=== PATIENT | female | born 1960 | race Caucasian/White ===

== ENCOUNTER 2020-06-04 13:30 | Outpatient (CLI) | payer MEDICARE, SELFPAY | END 2020-06-04 13:31 | disposition home or self-care (01) | LOC: ANHCOVIDVC 13:30 | PROVIDERS: PCP Family Medicine | DX: Z23 Encounter for immunization (principal) | CPT/HCPCS: 0001A; 91300 ==

== ENCOUNTER 2020-06-25 13:31 | Outpatient (CLI) | payer MEDICARE, SELFPAY | END 2020-06-25 13:32 | disposition home or self-care (01) | LOC: ANHCOVIDVC 13:31 | PROVIDERS: PCP Family Medicine | DX: Z23 Encounter for immunization (principal) | CPT/HCPCS: 0002A; 91300 ==

== ENCOUNTER 2021-06-30 08:28 | Outpatient (CLI) | payer MEDICARE, SELFPAY ==
--- NOTE | ~2021-06-30 | CT_ITS ---
EXAMINATION: CT diagnostic chest w con EXAM DATE: 06/30/2021 09:03 INDICATION: fu abnormal CT chest TECHNIQUE: Spiral CT of the chest following intravenous injection of 75 mL Omnipaque 350. Axial, cor onal and sagittal images of the chest were reviewed. Coronal maximum intensity pixel images of chest reviewed. The dose-length product (DLP) for this examination was 123.32 mGy-cm. The exposure was t ailored according to patient size (auto mA exposure control), and iterative reconstruction (ASIR) was used as additional dose reduction technique. Comparison is made to prior examination from 06/19/2016. FINDINGS: Some scattered small right upper lobe nodules are stable, postinfectious. No new or suspic ious pulmonary nodules. There is mild to moderate emphysema. There are no pleural or pericardial eff usions. Tracheobronchial tree is patent. There is no mediastinal, hilar or axillary lymphadenopat hy. There is no pneumothorax. Heart normal in size. No evidence of coronary arterial calcificat ion. Right adrenal low-density lesion consistent with adenoma measuring 1.3 cm. Small calcified sple en. There is mild thoracic spondylosis without osteoblastic or osteolytic lesions identified. IMPRESSION: 1. Small post infectious residua unchanged. 2. Mild to moderate emphysema. Reviewed, dictated and finalized at location A.
[2021-06-30 08:59] LABS: Estimated Glomerular Filt Rate > 60
== END 2021-06-30 08:29 | disposition home or self-care (01) ==
PROVIDERS: PCP Family Medicine; Visit Provider Family Medicine
DX: R59.0 Localized enlarged lymph nodes (principal); J43.9 Emphysema, unspecified; R91.8 Other nonspecific abnormal finding of lung field
CPT/HCPCS: 71260; Q9967

== ENCOUNTER 2021-12-07 00:41 | Inpatient (IN) | payer MEDICARE, SELFPAY ==
[2021-12-07] VITALS (28 sets, daily range): BP systolic 94–180; BP diastolic 50–108; PULSE 80–106; RESP 12–22; TEMP 36.3–37.3; O2SAT 86–96; BMI 19.3
--- NOTE | 2021-12-07 | ECHO_ITS ---
Patient Info Name: Divya Torres Age: 61 years : 1960 Gender: Female Ht: 62 in Wt: 94 lbs BSA: 1.36 m2 HR: 91 bpm BP: 156 / 85 mmHg Heart Rhythm: Sinus Rhythm Technical Quality: Fair Exam Date: 12/07/2021 10:20 AM Exam Location: [facility] Patient Status: Outpatient Admit Date: 12/07/2021 Staff Ordering Physician: Perry Johnson M.A., MD Entrance Guard: Simran Mann RDCS Attending Provider: Shilpa Melgar DO Referring Physician: Da CHRISTIANSEN; Exam Type: CA echo dop color flow w con Study Info Indications - sob Complete two-dimensional, color flow and Doppler transthoracic echocardiogram is performed with contrast to opacify the left ventricle and to improve the deliniation of the left ventricle endocardial borders. Contrast/Agitated Saline Contrast/Ag. Saline: Definity Amount: 2.00 ml Administered By: Simran Mann RDCS Existing IV Access: Yes IV Access Condition: patent with no signs of infiltration Summary 1. Left ventricular chamber dimension is normal. 2. Left ventricular systolic function is normal, estimated at 60-65%. 3. There is no increased left ventricular wall thickness. 4. The left ventricular diastolic function is grade I diastolic dysfunction. 5. Right ventricular chamber dimension is moderately enlarged. 6. Right ventricular systolic function is moderately reduced with relative sparing of the apex consistent with Melchor's sign which can be seen pulmonary embolism and/or right ventricular infarction. TAPSE 1.3. 7. Flattening of the septum in systole consistent with right ventricular pressure overload. 8. Right atrial chamber dimension is mildly enlarged. 9. There is mild tricuspid valve regurgitation. 10. Moderate pulmonary hypertension, estimated pulmonary arterial systolic pressure is 52 mmHg. Left Ventricle Left ventricular chamber dimension is normal. Left ventricular systolic function is normal, estimated at 60-65%. There is no increased left ventricular wall thickness. The left ventricular diastolic function is grade I diastolic dysfunction. Right Ventricle Right ventricular chamber dimension is moderately enlarged. Right ventricular systolic function is moderately reduced with relative sparing of the apex consistent with Melchor's sign which can be seen pulmonary embolism and/or right ventricular infarction. TAPSE 1.3. Flattening of the septum in systole consistent with right ventricular pressure overload. Left Atria Left atrial chamber dimension is normal. Right Atria Right atrial chamber dimension is mildly enlarged. Aortic Valve The aortic valve is trileaflet. There is mild aortic valve sclerosis. There is no aortic valve stenosis. There is no aortic valve regurgitation. Pulmonic Valve The pulmonic valve is not well visualized. Mitral Valve The mitral valve has thickened leaflets. There is no mitral valve regurgitation. The mitral valve annulus is mildly calcified. Tricuspid Valve The tricuspid valve leaflets are thickened. There is mild tricuspid valve regurgitation. Moderate pulmonary hypertension, estimated pulmonary arterial systolic pressure is 52 mmHg. Pericardium/Pleural The pericardium appears normal. There is small pericardial effusion. Inferior Vena Cava Normal inferior vena cava with >50% collapse upon inspiration consistent with elevated right atrial pressure, 10 mmHg. Aorta The aortic root
--- NOTE | ~2021-12-07 | CT_ITS ---
EXAMINATION: CT brain wo con DATE: 12/07/2021 09:29 INDICATION: Headache TECHNIQUE: Computed tomography (CT) of the head was performed without intravenous contrast. Sagittal and coronal reconstructions were performed. The mA was adjusted according to patient size. Iterative reconstruction technique was employed. The dose-length product was 605.33 mGy-cm. COMPARISON: None FINDINGS: There is small amount of intravascular contrast which may be related to earlier outside imaging. Ther e is minimal scattered white matter hypoattenuation consistent with chronic small vessel ischemic dis ease. No acute intracranial hemorrhage, acute infarction or abnormal extra axial fluid collection. Ve ntricles are normal and symmetric. No mass/mass effect. Small amount of fluid layering dependently in the right sphenoid sinus. The orbits and mastoid air cells are normal. IMPRESSION: 1. Minimal scattered white matter hypoattenuation consistent with chronic small vessel ischemic disea se. No acute intracranial process. Reviewed, dictated and finalized at location A. IMPRESSION: 1. Minimal scattered white matter hypoattenuation consistent with chronic small vessel ischemic disease. No acute intracranial process.
--- NOTE | ~2021-12-07 | US_ITS ---
EXAMINATION: US venous doppler [facility] DATE: 12/08/2021 09:36 INDICATION: Chest pain, bilateral below-knee amputation TECHNIQUE: Howe scale images without and with compression and Doppler images of the bilateral lower e xtremity veins were obtained. COMPARISON: None FINDINGS: The right common femoral vein, profunda femoral vein, femoral vein, popliteal vein are patent. The left common femoral vein, profunda femoral vein, femoral vein, popliteal vein are patent. IMPRESSION: 1. Patent bilateral lower extremity veins. No evidence of deep venous thrombosis. Reviewed, dictated and finalized at location B. IMPRESSION: 1. Patent bilateral lower extremity veins. No evidence of deep venous thrombosi s.
--- NOTE | ~2021-12-07 | CT_ITS ---
EXAMINATION: CTA chest PE protocol DATE: 12/07/2021 09:28 INDICATION: Chest pain. TECHNIQUE: Computed tomography angiography (CTA) of the chest was performed with 100 mL Omnipaque-350 intravenous contrast timed to evaluate the pulmonary arteries. Coronal maximum intensity projection 3D-reconstructions were created by the technologist. Automated exposure control and iterative reconst ruction technique were employed. The dose-length product was 200.43 mGy-cm. COMPARISON: Chest CT 06/30/2021 FINDINGS: There is moderate emphysema. There is mild atelectasis bilaterally. There is mucous pluggin g in the lower lobes. There are a few scattered nodules in the lungs measuring up to 4 mm, some of wh ich are new. No pleural effusion. There is right atrial and right ventricular enlargement of the hear t. There is a small pericardial effusion. The central pulmonary arteries are enlarged, consistent wit h pulmonary arterial hypertension. There is a thin strand-like filling defect in a pulmonary artery i n right lower lobe, consistent with a chronic embolus. There is a 1.6 cm mass in right adrenal gland measuring low-attenuation, consistent with an adenoma. The spleen is small and calcified, consistent with chronic infarct. There is kyphosis and mild spondylosis of thoracic spine. IMPRESSION: 1. Small chronic pulmonary embolus in right lower lobe. 2. Mucous plugging in the lower lobes. 3. Pulmonary nodules measuring up to 4 mm, some of which are new, probably benign. Noncontrast low-do se chest CT is recommended in 6 months. 4. Moderate emphysema. 5. Cardiomegaly. 6. Small pericardial effusion, new from 06/30/2021. Reviewed, dictated and finalized at location A. IMPRESSION: 1. Small chronic pulmonary embolus in right lower lobe. 2. Mucous plugging in the lower lobes. 3. Pulmonary nodules measuring up to 4 mm, some of which are new, probably shaji gn. Noncontrast low-dose chest CT is recommended in 6 months. 4. Moderate emphysema. 5. Cardiomegaly. 6. Small pericardial effusion, new from 06/30/2021.
--- NOTE | ~2021-12-07 | XR_ITS ---
EXAMINATION: XR chest 2V DATE: 12/07/2021 01:31 INDICATION: Shortness of breath TECHNIQUE: AP and lateral views of the chest are obtained. COMPARISON: 06/30/2021 FINDINGS: The lungs are free of acute opacities. No pleural effusion or pneumothorax. The cardiomedia stinal silhouette is normal. There is mild thoracic spondylosis. IMPRESSION: 1. No acute cardiopulmonary abnormality. Reviewed, dictated and finalized at location B.
--- NOTE | 2021-12-07 00:57 | ECG_ITS ---
Measurements Intervals [place] Rate: 98 P: 51 NE: 136 QRS: 127 QRSD: 90 T: 17 QT: 330 QTc: 423 Interpretive Statements SINUS RHYTHM VENTRICULAR PREMATURE COMPLEX RIGHT AXIS DEVIATION POSSIBLE LEFT ATRIAL ENLARGEMENT DELAYED PRECORDIAL R/S TRANSITION MINIMAL Q WAVES- INFERIOR LEADS BASELINE ARTIFACT- I, II, AVR BORDERLINE ECG NO PREVIOUS ECG AVAILABLE FOR COMPARISON Electronically Signed On 12-07-2021 8:17:33 CDT by Agapito Middleton D.O.
[2021-12-07 01:20] LABS: Basophils Absolute Auto 0.1 K/mm3 (0.0-0.1); Basophils Percent Auto 0.5 % (0.2-1.2); Eosinophils Absolute Auto 0.3 K/mm3 (0-0.3); Eosinophils Percent Auto 3.3 % (0-4.4); Hematocrit 60.8 % (37.0-47.0); Hemoglobin 20.3 g/dL (12.0-15.0); Immature Granulocyte Absolute 0.03 K/mm3 (0.00-0.031); Immature Granulocyte Percent A 0.3 % (0-0.5); Lymphocytes Absolute Auto 2.09 K/mm3 (0.9-3.2); Lymphocytes Percent Auto 21.1 % (18.3-44.2); Mean Corpuscular HGB Conc 33.4 g/dl (32-36); Mean Corpuscular Hemoglobin 34.9 pg (26-34); Mean Corpuscular Volume 104.6 fl (80-100); Mean Platelet Volume 10.6 fl (7.4-10.4); Monocytes Percent Auto 9.6 % (2.6-8.5); Neutrophils Absolute Auto 6.4 K/mm3 (1.3-6.7); Neutrophils Percent Auto 65.2 % (45.5-73.1); Platelet Count Result 212 k/mm3 (150-375); Red Blood Count 5.81 M/mm3 (4.2-5.4); Red Cell Distribution Width 14.8 % (11.5-14.5); White Blood Count 9.9 K/mm3 (4.5-10.0)
--- NOTE | 2021-12-07 01:24 | PC.NURSE ---
Patient off unit to radiology.
--- NOTE | 2021-12-07 01:26 | ED.NECK ---
HPI - Neck Pain/Injury General Chief Complaint: Shortness of Breath/Dyspnea Stated Complaint: shortness of breath Time Seen by Provider: 12/07/21 00:55 History of Present Illness HPI Narrative: This is a 61-year-old female, recently diagnosed with CHF, resents to the emergency department complaining of pain in the neck and chest, similar to that which he experienced about a week ago. The patient states she was in [place] when she noted difficulty breathing and chest pain. She was evaluated at a hospital there, and diagnosed with coronary artery disease and treated with diuretics. She was discharged and advised to follow-up with cardiology here for catheterization. She states she has had recurrence of the neck pain as well as shortness of breath. Related Data Home Medications Medication Instructions Recorded Confirmed oxycodone myristate 27 mg capsule 27 mg PO Q12H 02/07/21 12/07/21 sprinkle extended release 12hr(DON'T CRUSH) (Xtampza ER) aspirin 81 mg tablet,delayed 81 mg PO DAILY 12/07/21 12/07/21 release furosemide 20 mg tablet 20 mg PO DAILY 12/07/21 12/07/21 gabapentin 800 mg tablet 800 mg PO BID 12/07/21 12/07/21 tramadol 50 mg tablet 50 mg PO DAILY PRN Mild Pain 12/07/21 12/07/21 (Scale Score 1-4) Allergies Allergy/AdvReac Type Severity Reaction Status Date / Time carbamazepine Allergy Unknown Rash Verified 08/04/21 10:07 Review of Systems Review of Systems: CONSTITUTIONAL: Denies fever, chills, or sweats. EYES: Denies visual changes, redness, or discharge. ENT: Denies rhinorrhea, congestion, sore throat, or otalgia. CARDIOVASCULAR: Chest pain denies palpitations, or edema. RESPIRATORY: Dyspnea denies cough. GASTROINTESTINAL: Denies abdominal pain, nausea, vomiting, or diarrhea. GENITOURINARY: Denies dysuria or hematuria. SKIN: Denies rash or itching. MUSCULOSKELETAL: Denies back pain, joint pain, or myalgia. NEUROLOGIC: Denies headache, numbness, dizziness, or weakness. PSYCHIATRIC: Denies anxiety or depression. [facility] Past Medical History Medical History Emphysema of lung Family History Family History Grandparent Diabetes mellitus Father Hypertension Social History Social History Smoking status: Current every day smoker Alcohol intake: current Drinks per week: 15 Substance use: never Substance use type: does not use Spiritual care concerns: No Exam Narrative: GENERAL: Well-developed, well-nourished, appears uncomfortable HEAD: Normocephalic, atraumatic. EYES: PERRLA and EOMI. ENT: Nares clear, no rhinorrhea or epistaxis. Mucous membranes moist. Oropharynx without tonsillar hypertrophy exudate or other lesions. NECK: JVD noted supple. No adenopathy or masses. CHEST: Clear to auscultation. No respiratory distress. No wheezes rales or rhonchi HEART: Regular rate and rhythm. No murmur heard. Normal peripheral pulses. ABDOMEN: Soft, nontender, nondistended, normal active bowel sounds. EXTREMITIES: Bilateral BKA's noted with well-healed surgical scars, normal range of motion. No edema. SKIN: Warm, dry, no rash. NEURO: No focal deficits. Alert and oriented x3. PSYCH: Normal mood and affect. Course Course Emergency Course: 05:46 - BNP 7720. Troponin elevated to 0.09 with repeat 0.088. The patient continues to have chest pain. Discussed patient with hospitalist, Dr. Stephens who accepts admission. 06:00 - Discussed patient with maintenance of way supervisor, Dr. Estevez who recommends holding anticoagulants until the day cardiology team evaluates the patient (in approximately 1.5 hours). This recommendation was relayed to Dr. Stephens. Vital Signs Vital signs: Vital Signs Temperature 97.5 F L 12/07/21 00:43 Pulse Rate 106 H 12/07/21 00:43 Respiratory Rate 22 H 12/07/21 00:43 Blood Pressure 180/108 H 12/07/21 00:43 Puls
[2021-12-07 01:48] LABS: Alanine Aminotransferase 34 U/L (6-35); Albumin Level 4.4 g/dL (3.5-5.1); Alkaline Phosphatase 74 U/L (38-126); Anion Gap 11 mmol/L (8-16); Aspartate Amino Transferase 32 U/L (14-36); Bilirubin,Total 1.2 mg/dL (0.2-1.3); Blood Urea Nitrogen 17 mg/dL (7-17); Calcium 9.1 mg/dL (8.4-10.2); Carbon Dioxide 37 mmol/L (22-30); Chloride 95 mmol/L (98-107); Estimated Glomerular Filt Rate > 60; Glucose 89 mg/dL (65-110); Potassium 3.9 mmol/L (3.4-5.0); Sodium 143 mmol/L (137-145)
[2021-12-07] MEDS: ACETAMINOPHEN 500 MG TABLET 1000 MG PO (01:51)
[2021-12-07 02:20] LABS: NT Pro B Type Natriuretic Pept 7720 pg/mL (5-100)
--- NOTE | 2021-12-07 03:18 | PC.NURSE ---
Patient report given to NATALIA Mosley. All questions answered and care of patient transferred.
[2021-12-07 05:35] LABS: Troponin I 0.088 ng/mL (0.000-0.034)
[2021-12-07] MEDS: FUROSEMIDE INJ 40 MG/4 ML VIAL IV PUSH ×3 (05:50→18:37)
--- NOTE | 2021-12-07 05:50 | PM.IMHP ---
H&P: HPI History of Present Illness Date/Time: 12/07/21 05:50 Chief Complaint: 61 years old female with past medical history of COPD lung nodule BKA presented to the hospital with chest pain dull in nature no aggravating or relieving factors associated with shortness of breath worsening with activities patient had recent history of chest pain she was requested to follow-up with with Cardiology but patient did not follow-up with cardiology today patient came back to the ER with complaint of chest pain and shortness of breath BNP was above 7000 troponin was elevated cardiology was consulted patient will be admitted to the hospital for further evaluation and treatment of CHF exacerbation and chest pain Review of Systems Review of Systems: Twelve system review was done negative except above [facility] Past Medical History Medical History Emphysema of lung Family History Family History Grandparent Diabetes mellitus Father Hypertension Social History Social History Alcohol intake: current Meds Home Medications and Allergies Home Medications Medication Instructions Recorded Confirmed Type nortriptyline 25 mg capsule 25 mg PO DAILY 10/17/19 02/07/21 History gabapentin 800 mg tablet See Rx Instructions .Route .COMPLEX 02/07/21 02/07/21 History oxycodone myristate 27 mg capsule 27 mg PO Q12H 02/07/21 02/07/21 History sprinkle extended release 12hr(DON'T CRUSH) (Xtampza ER) trazodone 50 mg tablet 50 mg PO QHS #90 tabs 02/07/21 02/07/21 Rx glycopyrrolate 9 mcg-formoterol See Rx Instructions .Route 08/29/21 Rx 4.8 mcg HFA aerosol inhaler .COMPLEX #10.7 grams (Bevespi Aerosphere) Allergies Allergy/AdvReac Type Severity Reaction Status Date / Time carbamazepine Allergy Unknown Rash Verified 08/04/21 10:07 Vital Signs Vital Signs - 24 hr 12/07/21 00:43 12/07/21 02:52 12/07/21 03:26 Temperature 97.5 F L Pulse Rate 106 H 103 H 93 Respiratory Rate 22 H 20 Blood Pressure 180/108 H 145/90 H Pulse Oximetry 86 L 93 Oxygen Delivery Nasal Cannula Oxygen Flow Rate 3 12/07/21 03:16 12/07/21 03:31 12/07/21 02:55 Temperature Pulse Rate 94 91 Respiratory Rate 18 17 Blood Pressure 153/85 H 153/86 H Pulse Oximetry 94 92 95 Oxygen Delivery Nasal Cannula Oxygen Flow Rate 3 12/07/21 03:32 12/07/21 05:00 12/07/21 05:16 Temperature Pulse Rate 91 89 89 Respiratory Rate 16 16 17 Blood Pressure 153/87 H 156/89 H Pulse Oximetry 94 92 93 Oxygen Delivery Oxygen Flow Rate Exam Narrative: GENERAL: Looks ill HEAD: Normocephalic, atraumatic. NECK: Supple. No adenopathy, no masses. RESPIRATORY: Positive bilateral crackle. CARDIOVASCULAR: Regular rate and rhythm without murmurs, rubs, or gallops. Peripheral pulses 2+ and equal bilaterally. ABDOMINAL: Soft, nontender, nondistended, no hepatosplenomegaly. Normoactive BS. MUSCULOSKELETAL: Moves all extremities. Strength/ROM intact without gross deformities or TTP. No edema. No calf tenderness. No chest wall tenderness palpation. SKIN: Warm, dry, normal color. No rashes. NEURO: A&O X3. PSYCHIATRIC: Appropriate mood and affect. Normal interaction. H&P: Results Labs Labs: Short CBC 12/07/21 Range/Units 01:06 WBC 9.9 (4.5-10.0) K/mm3 Hgb 20.3 H (12.0-15.0) g/dL Hct 60.8 H (37.0-47.0) % Plt Count 212 (150-375) k/mm3 [facility] 12/07/21 01:06 Sodium 143 Potassium 3.9 Chloride 95 L Carbon Dioxide 37 H BUN 17 Creatinine 0.60 L Glucose 89 Calcium 9.1 Cardiac Enzymes 12/07/21 12/07/21 Range/Units 01:06 05:04 Troponin I 0.090 H* 0.088 H* (0.000-0.034) ng/mL Liver Function 12/07/21 Range/Units 01:06 Total Bilirubin 1.2 (0.2-1.3) mg/dL AST 32 (14-36) U/L ALT 34 (6-35) U/L Alkaline Susana
[2021-12-07] MEDS: MORPHINE SULFATE (*CRX) 4 MG/ML INJ IV PUSH ×2 (05:51→09:04)
[2021-12-07 06:05] LABS: Cholesterol 172 mg/dL (0-200); HDL Direct 61 mg/dL; Triglycerides 86 mg/dL (<150)
[2021-12-07 06:15] LABS: LDL Cholesterol Direct 87 mg/dL
--- NOTE | 2021-12-07 06:20 | ADMGEN ---
This patient, Divya Torres, was admitted to IMU Room 232-01 at 0620. Patient/family oriented to hospital policies and general routines including ID bracelet, bed and alarms, visiting hours, pain management, procedures, bathroom and other care routines, personal items, smoking policy, room service/diet, and visiting hours. Information on how to activate the Rapid Response Team has been discussed. Patient/Family are encouraged to report perceived risks to care and to ask questions if they do not understand what they are told or what they should do.
[2021-12-07 07:05] LABS: Influenza A QL RT-PCR Negative (Negative); Influenza B QL RT-PCR Negative (Negative); SARS-CoV-2 RNA PCR Negative
[2021-12-07] MEDS: ENOXAPARIN 40 MG/0.4 ML SYRINGE SUB-Q ×2 (08:43→21:05)
[2021-12-07] MEDS: METOPROLOL TARTRATE 12.5 MG TABLET PO ×2 (08:43→21:05)
[2021-12-07] MEDS: ATORVASTATIN 20 MG TABLET PO (08:43)
[2021-12-07] MEDS: ASPIRIN 81 MG CHEWABLE TABLET PO (08:43)
--- NOTE | 2021-12-07 08:47 | ECG_ITS ---
Measurements Intervals [place] Rate: 80 P: 67 IN: 150 QRS: 132 QRSD: 93 T: 58 QT: 370 QTc: 427 Interpretive Statements SINUS RHYTHM RIGHT AXIS DEVIATION POSSIBLE RIGHT ATRIAL ENLARGEMENT LEFT ATRIAL ENLARGEMENT DELAYED PRECORDIAL R/S TRANSITION MINIMAL Q WAVES- INFERIOR LEADS BORDERLINE T WAVE ABNORMALITY- ANT/HIGH LAT LEADS BORDERLINE ECG COMPARED TO ECG 12/07/2021 01:02:18 NO SIGNIFICANT CHANGES Electronically Signed On 12-07-2021 14:30:23 CDT by Agapito Middleton D.O.
[2021-12-07 08:52] LABS: Troponin I 0.069 ng/mL (0.000-0.034)
--- NOTE | 2021-12-07 11:08 | IVDEFINITY ---
Prior to administration of IV Definity the patient was educated on the risks and benefits of the imaging enhancing agent including potential adverse side effects. The patient verbalized understanding. Allergies were verified. No exclusion criteria were identified and at least one of the following inclusion criteria were met: 1) physician request, 2) patient technically difficult to image (per the [place] [employer]ocardi[employer] guidelines of two or more segments not discernable within the apical view), or 3) questionable left ventricular function. ?
[2021-12-07] MEDS: PERFLUTREN LIPID MICROSPHERES 1.5 ML VIAL DILUTED TO 10 ML TOTAL VOLUME IV PUSH (11:09)
[2021-12-07] MEDS: GABAPENTIN 400 MG CAPSULE 800 MG PO ×2 (12:00→18:37)
--- NOTE | 2021-12-07 12:48 | PCDIET ---
Brief Nutrition Note: Screened for BMI 18.5. Patient has existing BKA. Adjusted BMI for amputation (-5.9%) is 19.7, outside of screening criteria. No recent weight loss or reports of poor appetite. Routine monitoring 7 days. Portia Corbin MS RD LDN
--- NOTE | 2021-12-07 15:16 | PM.CNCAR ---
Assessment and Plan Assessment and plan (1) Elevated troponin: Code(s): R77.8 - Other specified abnormalities of plasma proteins Status: Acute (2) Chronic obstructive pulmonary disease, unspecified: Code(s): J44.9 - Chronic obstructive pulmonary disease, unspecified Status: Acute (3) Tobacco use: Code(s): Z72.0 - Tobacco use Status: Acute (4) Congestive heart failure: Code(s): I50.9 - Heart failure, unspecified Status: Acute Plan 1. Patient's chest pain is pleuritic. Elevated troponins likely 2/2 CHF. 2. Patient reports symptomatic improvement with diuresis. Would continue diuresis until euvolemic. 3. Echocardiogram pending, will follow-up on results. 4. Continue ASA, statin, beta-nimo. History of Present Illness History of Present Illness Consult date/time: 12/07/21 15:16 Requesting physician: Milan Heller MD Consult reason: chest pain Reason For Visit: CHEST PAIN Narrative: Patient is a 61-year-old female with a history of COPD, lung nodule, bilateral BKAs, tobacco dependence who presented with shortness of breath and chest tightness. Patient states that she was recently admitted to a hospital in [facility] (12/02 to 12/03) for similar symptoms, and was told that she had congestive heart failure. Had elevated BNP and troponins. Was treated for heart failure and recommended she receive cardiac cath as an outpatient. Patient presented last night with chest tightness that worsens with breath. Received diuretics since admission, and feels some improvement. CTA done showed small chronic right lower lobe pulmonary embolus, mucus plugging in lower lobes, lung nodule, and small pericardial effusion. Troponins mildly elevated. Review of Systems Constitutional: Constitutional: Denies body ache(s), Denies chills, Denies night sweats and Denies weakness Cardiovascular: Cardiovascular: Reports as per HPI Respiratory: Respiratory: Reports as per HPI Gastrointestinal: Gastrointestinal: Denies abdominal pain, Denies nausea and Denies vomiting Neurologic: Reports system reviewed and no additional complaints, except as documented Hematologic/Lymphatic: Hematologic/Lymphatic: Denies easy bleeding and Denies easy bruising PMFSH Past Medical History Medical History Emphysema of lung Family History Family History Grandparent Diabetes mellitus Father Hypertension Social History Social History Smoking status: Current every day smoker Alcohol intake: current Drinks per week: 15 Substance use: never Substance use type: does not use Spiritual care concerns: No Meds Home Medications and Allergies Home Medications Medication Instructions Recorded Confirmed Type oxycodone myristate 27 mg capsule 27 mg PO Q12H 02/07/21 12/07/21 History sprinkle extended release 12hr(DON'T CRUSH) (Xtampza ER) aspirin 81 mg tablet,delayed 81 mg PO DAILY 12/07/21 12/07/21 History release furosemide 20 mg tablet 20 mg PO DAILY 12/07/21 12/07/21 History gabapentin 800 mg tablet 800 mg PO BID 12/07/21 12/07/21 History tramadol 50 mg tablet 50 mg PO DAILY PRN Mild Pain 12/07/21 12/07/21 History (Scale Score 1-4) Allergies Allergy/AdvReac Type Severity Reaction Status Date / Time carbamazepine Allergy Unknown Rash Verified 08/04/21 10:07 Vital Signs Vital Signs - 24 hr 12/07/21 00:43 12/07/21 02:52 12/07/21 03:26 Temperature 36.4 C L Pulse Rate 106 H 103 H 93 Respiratory Rate 22 H 20 Blood Pressure 180/108 H 145/90 H Pulse Oximetry 86 L 93 Oxygen Delivery Nasal Cannula Oxygen Flow Rate 3 12/07/21 03:16 12/07/21 03:31 12/07/21 02:55 Temperature Pulse Rate 94 91 Respiratory Rate 18 17 Blood Pressure 153/85 H 153/86 H Pulse Oximetry 94 92 95 Oxygen Delivery Nasal Cannula
[2021-12-07 15:38] LABS: D Dimer 0.69 ug/mL (<0.48)
--- NOTE | 2021-12-07 17:09 | PM.CNPUL ---
Assessment and Plan Assessment and plan (1) Pulmonary embolism: Code(s): I26.99 - Other pulmonary embolism without acute cor pulmonale Status: Acute Assessment and Plan: Patient presents with a recent airplane trip, hypoxemia, positive D-dimer, echocardiogram with a moderately enlarged right ventricle and moderately reduced right ventricular function with relative sparing of the apex consistent with a Anderson sign, positive troponins, and a CT angiogram of the chest consistent with a right lower lobe segmental filling defect. This has more of an chronic appearance on the CT scan. Lower extremity Dopplers have been ordered. The patient has hypoxia requiring 3 L nasal cannula today. I Believe the patient has a pulmonary embolism and agree with Lovenox 1 milligram/kilos subcu b.i.d.. discussed with Dr. Melgar (2) Chronic obstructive pulmonary disease, unspecified: Code(s): J44.9 - Chronic obstructive pulmonary disease, unspecified Status: Acute Assessment and Plan: The patient has a history of 49 pack year tobacco use, currently smoking, stated that she has PFTs and was told she has COPD, CT of the chest on 06/19/2016 has mild apical predominant centrilobular emphysema and CT scan of the chest on 12/07/2021 demonstrates moderate apical predominant centrilobular emphysema. Patient was previously on no oxygen, had no exacerbations in the last year and was maintained on bevespi. currently the patient denies any wheezing, cough, phlegm production and I do not believe she is having a COPD exacerbation, pneumonia or tracheobronchitis at this time. At this time I will place the patient on albuterol 2.5 mg nebulizers and ipratropium 0.5 mg nebulizers Q.6 hours. If she remains stable will switch her to long-acting beta agonist and long-acting muscarinic antagonist. (3) Congestive heart failure: Code(s): I50.9 - Heart failure, unspecified Status: Acute Assessment and Plan: Patient with a history of congestive heart failure and currently with elevated BNP but does not appear clinically volume overloaded on exam. Patient has improved with Lasix diuresis per Cardiology and hospitalist teams. History of Present Illness History of Present Illness Consult date: 12/07/21 Chief complaint: CHEST PAIN Narrative: 12/07/2021: This is a new pulmonary consult for hypoxemia and PE 61-year-old woman with a history of tobacco use (49 PY, current smoker), history of bacterial blood infection on a ventilator for 2 months in 2010 status post bilateral BKAs, possible endocarditis at that time, polycythemia s/p multiple blood withdrawals (weekly to monthly but quit 2 years ago), congestive heart failure presented to [facility] on 12/07 with shortness of breath and chest pain. At baseline patient is wheelchair-bound she does not have any respiratory limitations but is nonambulatory. She is maintained on the vas Sabina and had pneumonia in April of 2021. She states many years ago she had PFTs but none recently. She has a could her current tobacco user since age 12 and on average smokes 1 pack per day, 49 pack years. Her last cigarette was 2 days ago. She is exposed to secondhand smoke from her and also worked as a sales demonstrator. She denies vaping, illicit drug use, sandblasting, welding, asbestos or, professional painting or steel sawmill worker. patient was in her usual state of health and on 11/30 she flew to [place]. On 12/01 she tells me she developed a headache and that the pain radiated to the neck and to the chest area. Patient went to urgent care on 12/02 and then she was admitted to the hospital. Her oxygen was low, her troponin was high and she tells me they did a CT scan of the chest with contrast and told her she had no blood clots. They told her she had fluid and was given Lasix and improved. She was hypoxic and required 3 L nasal cannula oxygen. She was
--- NOTE | 2021-12-07 17:49 | PC.NURSE ---
On 12/07/21, the student, Anya RODRIGUEZ [facility], provided care and completed [facility] documentation on this patient. I have reviewed the student's documentation and agree with the findings.
--- NOTE | 2021-12-07 18:53 | PHAR ---
PT'S HOME MED XTAMPZA ER 27 MG CAPSULES VERIFIED BY PHARMACY
[2021-12-07] MEDS: ALBUTEROL SULFATE NEB 2.5 MG/3 ML INH INHALATION (21:09)
[2021-12-07] MEDS: IPRATROPIUM BR 0.02% INH SOLN 0.5 MG/2.5 ML VIAL INHALATION (21:09)
[2021-12-08] VITALS (23 sets, daily range): BP systolic 83–103; BP diastolic 53–68; PULSE 73–201; RESP 16–18; TEMP 36.3–36.8; O2SAT 91–100; BMI 18.5
[2021-12-08] MEDS: IPRATROPIUM BR 0.02% INH SOLN 0.5 MG/2.5 ML VIAL INHALATION (02:41)
[2021-12-08] MEDS: ALBUTEROL SULFATE NEB 2.5 MG/3 ML INH INHALATION (02:41)
[2021-12-08 05:01] LABS: Basophils Absolute Auto 0.1 K/mm3 (0.0-0.1); Basophils Percent Auto 0.7 % (0.2-1.2); Eosinophils Absolute Auto 0.2 K/mm3 (0-0.3); Eosinophils Percent Auto 1.8 % (0-4.4); Hematocrit 60.1 % (37.0-47.0); Hemoglobin 20.2 g/dL (12.0-15.0); Immature Granulocyte Absolute 0.03 K/mm3 (0.00-0.031); Immature Granulocyte Percent A 0.3 % (0-0.5); Lymphocytes Absolute Auto 1.83 K/mm3 (0.9-3.2); Lymphocytes Percent Auto 18.1 % (18.3-44.2); Mean Corpuscular HGB Conc 33.6 g/dl (32-36); Mean Corpuscular Hemoglobin 35.1 pg (26-34); Mean Corpuscular Volume 104.5 fl (80-100); Mean Platelet Volume 10.4 fl (7.4-10.4); Monocytes Absolute Auto 1.3 K/mm3 (0.1-0.6); Monocytes Percent Auto 12.7 % (2.6-8.5); Neutrophils Absolute Auto 6.7 K/mm3 (1.3-6.7); Neutrophils Percent Auto 66.4 % (45.5-73.1); Platelet Count Result 253 k/mm3 (150-375); Red Blood Count 5.75 M/mm3 (4.2-5.4); Red Cell Distribution Width 14.4 % (11.5-14.5); White Blood Count 10.1 K/mm3 (4.5-10.0)
[2021-12-08 06:19] LABS: Alanine Aminotransferase 23 U/L (6-35); Albumin Level 3.5 g/dL (3.5-5.1); Alkaline Phosphatase 66 U/L (38-126); Anion Gap 9 mmol/L (8-16); Aspartate Amino Transferase 18 U/L (14-36); Bilirubin,Total 1.2 mg/dL (0.2-1.3); Blood Urea Nitrogen 32 mg/dL (7-17); Calcium 8.7 mg/dL (8.4-10.2); Carbon Dioxide 34 mmol/L (22-30); Chloride 93 mmol/L (98-107); Estimated CRCL calculation 35 ml/min; Estimated Glomerular Filt Rate 56; Glucose 103 mg/dL (65-110); Potassium 3.8 mmol/L (3.4-5.0); Sodium 136 mmol/L (137-145)
--- NOTE | 2021-12-08 07:42 | ECG_ITS ---
Measurements Intervals [place] Rate: 156 P: MD: 0 QRS: 124 QRSD: 91 T: 52 QT: 306 QTc: 494 Interpretive Statements ATRIAL FIBRILLATION WITH RAPID VENTRICULAR RESPONSE RIGHT AXIS DEVIATION INCOMPLETE RIGHT BUNDLE BRANCH BLOCK DELAYED PRECORDIAL R/S TRANSITION MINIMAL Q WAVES- INFERIOR LEADS BASELINE ARTIFACT- I, II, AVR ABNORMAL ECG COMPARED TO ECG 12/07/2021 09:39:47 ATRIAL FIBRILLATION NOW PRESENT Electronically Signed On 12-08-2021 8:57:26 CDT by Agapito Middleton D.O.
--- NOTE | 2021-12-08 08:25 | PC.NURSE ---
Addendum entered by Brooke Mahoney RN 12/08/21 08:28: Amiodarone bolus IVPB x1 Original Note: Spoke with Paulette Mckeon NP regarding patient's HR up to 200's. Also complaining of headache. New order for Amiodarone bolus x1.
[2021-12-08] MEDS: ACETAMINOPHEN 325 MG TABLET 650 MG PO (08:27)
[2021-12-08] MEDS: AMIODARONE 150 MG/D5W 100 ML 150 MG/100 ML BAG 600 MG IV CONT (08:31)
[2021-12-08] MEDS: ENOXAPARIN 40 MG/0.4 ML SYRINGE SUB-Q (08:38)
[2021-12-08] MEDS: ASPIRIN 81 MG ENTERIC TABLET PO (08:38)
[2021-12-08] MEDS: GABAPENTIN 400 MG CAPSULE 800 MG PO ×2 (08:38→18:23)
[2021-12-08] MEDS: ATORVASTATIN 20 MG TABLET PO (08:38)
--- NOTE | 2021-12-08 09:31 | ECG_ITS ---
Measurements Intervals [place] Rate: 81 P: 60 FL: 146 QRS: 119 QRSD: 92 T: 63 QT: 363 QTc: 423 Interpretive Statements SINUS RHYTHM RIGHT AXIS DEVIATION POSSIBLE RIGHT ATRIAL ENLARGEMENT POSSIBLE LEFT ATRIAL ENLARGEMENT DELAYED PRECORDIAL R/S TRANSITION MINIMAL Q WAVES- INFERIOR LEADS BORDERLINE ECG COMPARED TO ECG 12/08/2021 06:45:03 SINUS RHYTHM NOW PRESENT Electronically Signed On 12-08-2021 10:19:35 CDT by Agapito Middleton D.O.
--- NOTE | 2021-12-08 09:58 | PCDIET ---
Pt triggered a nutrition screen for low BMI, however noted bilateral BKA. Corrected BMI is WNL. Will assess upon length of stay or per consult as needed.
--- NOTE | 2021-12-08 09:59 | PM.PNPUL ---
Progress Note: A&P Assessment and Plan (1) Pulmonary embolism: Code(s): I26.99 - Other pulmonary embolism without acute cor pulmonale Status: Acute Assessment and Plan: Patient presents with a recent airplane trip, hypoxemia, positive D-dimer, echocardiogram with a moderately enlarged right ventricle and moderately reduced right ventricular function with relative sparing of the apex consistent with a Helio sign, positive troponins, and a CT angiogram of the chest consistent with a right lower lobe segmental filling defect. This has more of an chronic appearance on the CT scan. Lower extremity Dopplers have been ordered. The patient has hypoxia requiring 3 L nasal cannula today. I Believe the patient has a pulmonary embolism and agree with Lovenox 1 milligram/kilos subcu b.i.d.. 12/08 Patient tells me that her breathing is near normal today. She has no additional throat pain. She denies fever, chills, chest pain or hemoptysis. Patient is on 2 L nasal cannula saturation 91%. White blood cell count 10.1, creatinine 1.0. Patient is status post bilateral BKA and her lower extremity Dopplers are negative for DVT. Patient appears to be tolerating Lovenox without any bleeding complications and would transition patient to a DOAC that her insurance will cover. (2) Chronic obstructive pulmonary disease, unspecified: Code(s): J44.9 - Chronic obstructive pulmonary disease, unspecified Status: Acute Assessment and Plan: The patient has a history of 49 pack year tobacco use, currently smoking, stated that she has PFTs and was told she has COPD, CT of the chest on 06/19/2016 has mild apical predominant centrilobular emphysema and CT scan of the chest on 12/07/2021 demonstrates moderate apical predominant centrilobular emphysema. Patient was previously on no oxygen, had no exacerbations in the last year and was maintained on bevespi. patient has been polycythemic for many years. I saw Hematology consult note from 09/23/2009 with a hematocrit of 53%. [place] 2 mutation study was sent and was negative. At that time it was felt that she is polycythemic was secondary tobacco smoke and lung disease. On 04/29/2015 her hemoglobin was 19.6. 12/07 currently the patient denies any wheezing, cough, phlegm production and I do not believe she is having a COPD exacerbation, pneumonia or tracheobronchitis at this time. At this time I will place the patient on albuterol 2.5 mg nebulizers and ipratropium 0.5 mg nebulizers Q.6 hours. If she remains stable will switch her to long-acting beta agonist and long-acting muscarinic antagonist. 12/08 No evidence of COPD exacerbation. I will change the patient to Anoro Ellipta and discontinue nebulizers today. (3) Congestive heart failure: Code(s): I50.9 - Heart failure, unspecified Status: Acute Assessment and Plan: 12/07 Patient with a history of congestive heart failure and currently with elevated BNP but does not appear clinically volume overloaded on exam. Patient has improved with Lasix diuresis per Cardiology and hospitalist teams. 12/07 Remains on Lasix 40 mg IV b.i.d.. Diuresis per Cardiology and hospitalist teams. (4) Sleep apnea: Code(s): G47.30 - Sleep apnea, unspecified Status: Acute Assessment and Plan: On 06/13/2021: Patient had a home sleep study with an AHI of 6.3 and 219 minutes with saturations below 85%. Recommendation was for auto Pap 4-20 with the patient tells me she declined this treatment because she felt it was not necessary and would be unable to tolerate a CPAP mask. 12/08 Patient tells me that she is still on willing to wear CPAP mask at home but she would be willing to wear oxygen. I will check an overnight oximetry on 2 L. Subjective Date/time seen: 12/08/21 09:59 Interval history: 12/07/2021:? This is a new pulmonary consult for hypoxemia and PE ?61-year-old woman with a history of? tobacco
[2021-12-08] MEDS: METOPROLOL TARTRATE 25 MG TABLET PO (14:14)
--- NOTE | 2021-12-08 14:18 | PC.NURSE ---
On 12/08/21, the student, [Amber Guido], provided care and completed [facility] documentation on this patient. I have reviewed the student's documentation and agree with the findings.
--- NOTE | 2021-12-08 14:51 | PM.PNCARD ---
Progress Note: A&P Assessment and Plan (1) Pulmonary embolism: Code(s): I26.99 - Other pulmonary embolism without acute cor pulmonale Status: Acute (2) Chronic obstructive pulmonary disease, unspecified: Code(s): J44.9 - Chronic obstructive pulmonary disease, unspecified Status: Acute (3) Tobacco use: Code(s): Z72.0 - Tobacco use Status: Acute (4) Hypoxia: Code(s): R09.02 - Hypoxemia Status: Acute (5) Acute dyspnea: Code(s): R06.00 - Dyspnea, unspecified Status: Acute (6) Elevated troponin: Code(s): R77.8 - Other specified abnormalities of plasma proteins Status: Acute (7) Atrial fibrillation: Code(s): I48.91 - Unspecified atrial fibrillation Status: Acute Plan 1. New onset atrial fibrillation. Would continue with beta nimo for rate control. If concern for hypotension, then would do Amiodarone. Could switch Lovenox to NOAC for anticoagulation ([id number] 2 for history of CHF and female sex). Would need anticoagulation for PE as well. Continue to monitor on telemetry. 2. Patient appears euvolemic on exam, would avoid further diuresis. Time Spent With Patient Time with patient: 25 - 35 minutes Subjective Date/time seen: 12/08/21 14:51 Interval history: Patient reports significant improvement in her breathing. Went into AFIB this morning at 7:30 and converted to sinus around 9AM. Was given Amio bolus due to SBP in the 90s. Patient denied chest pain, palpitations at the time of AFIB but reports she had a headache. No prior history of atrial fibrillation. Review of Systems Review of Systems: All systems reviewed & are unremarkable except as noted in HPI and below Exam Const: General: comfortable and no acute distress Neck: Neck: no JVD Resp: Auscultation: diminished lung sounds Cardio: Rate: regular rate Rhythm: regular rhythm Heart sounds: no murmurs Neuro: Speech: normal speech Psych: Mental Status: mental status grossly normal Objective Data Vital Signs Vital Signs: Vital Signs - 24 hr 12/07/21 16:00 12/07/21 16:00 12/07/21 16:00 Temperature 36.3 C L Pulse Rate 91 86 Respiratory Rate 16 Blood Pressure 108/65 Pulse Oximetry 92 94 Oxygen Delivery Nasal Cannula Oxygen Flow Rate 2 12/07/21 18:00 12/07/21 20:00 12/07/21 21:05 Temperature 36.3 C L Pulse Rate 88 91 100 Respiratory Rate 16 Blood Pressure 101/50 L Pulse Oximetry 94 Oxygen Delivery Oxygen Flow Rate 12/07/21 21:10 12/07/21 21:13 12/07/21 21:20 Temperature Pulse Rate 92 98 Respiratory Rate 18 18 Blood Pressure Pulse Oximetry 94 Oxygen Delivery Nasal Cannula Oxygen Flow Rate 3 12/07/21 20:00 12/07/21 21:00 12/07/21 22:00 Temperature Pulse Rate 92 80 Respiratory Rate Blood Pressure Pulse Oximetry 94 Oxygen Delivery Nasal Cannula Oxygen Flow Rate 3 12/07/21 23:54 12/08/21 00:00 12/08/21 00:00 Temperature 36.4 C Pulse Rate 84 83 Respiratory Rate 20 Blood Pressure 94/53 L Pulse Oximetry 96 96 Oxygen Delivery Nasal Cannula Oxygen Flow Rate 3 12/08/21 02:00 12/08/21 02:41 12/08/21 02:52 Temperature Pulse Rate 81 95 99 Respiratory Rate 18 18 Blood Pressure Pulse Oximetry Oxygen Delivery Oxygen Flow Rate 12/08/21 04:00 12/08/21 04:00 12/08/21 04:00 Temperature 36.6 C Pulse Rate 88 83 Respiratory Rate 16 Blood Pressure 103/63 Pulse Oximetry 91 91 Oxygen Delivery Nasal Cannula Oxygen Flow Rate 2 12/08/21 06:00 12/08/21 07:56 12/08/21 08:20 Temperature 36.3 C L Pulse Rate 90 84 95 Respiratory Rate 16 18 Blood Pressure 88/53 L Pulse Oximetry 94 Oxygen Delivery Oxygen Flow Rate 12/08/21 08:29 12/08/21 08:31 12/08/21 12:06 Temperature Pulse Rate 95 201 H 79 Respiratory Rate 18 Blood Pressure 95/58 L 83/57 L Pulse Oximetry 93 Oxygen Delivery Oxygen Flow Rate
--- NOTE | 2021-12-08 17:00 | PM.IMPN ---
Progress Note: A&P Assessment and Plan (1) Acute dyspnea: Code(s): R06.00 - Dyspnea, unspecified Status: Acute Assessment and Plan: Improving with diuresis (2) Chest pain: Code(s): R07.9 - Chest pain, unspecified Status: Acute Assessment and Plan: Essentially resolved, likely 2/2 PE (3) Elevated troponin: Code(s): R77.8 - Other specified abnormalities of plasma proteins Status: Acute Assessment and Plan: As above (4) Emphysema of lung: Code(s): J43.9 - Emphysema, unspecified Status: Acute Assessment and Plan: Stable (5) Sleep apnea: Code(s): G47.30 - Sleep apnea, unspecified Status: Acute (6) Chronic pain syndrome: Code(s): G89.4 - Chronic pain syndrome Status: Acute Assessment and Plan: home meds restarted, stable (7) Pulmonary embolism: Code(s): I26.99 - Other pulmonary embolism without acute cor pulmonale Status: Acute Assessment and Plan: continue a/c, transition to eliquis (8) Atrial fibrillation: Code(s): I48.91 - Unspecified atrial fibrillation Status: Acute Assessment and Plan: appreciate cardio consultation, continue amio drip, transition to metoprolol if BP can tolerate it Plan DVT prophylaxis with eliquis GI prophylaxis not indicated Code status full code Subjective Date/time seen: 12/08/21 17:00 Interval history: Patient sitting up in bed, resting comfortably on 2 L nasal cannula. No overnight events noted. No chest pain or shortness of breath. No nausea, vomiting or diarrhea. No fevers or chills. Exam Narrative: General: No acute distress, alert and oriented per baseline, comfortable on 2L nc HEENT: Atraumatic, normocephalic, mucous membranes moist CV: Regular rate and rhythm, S1, S2 Lungs: Clear to auscultation bilaterally, no rales or crackles noted, no wheezes, good air entry Abdomen: Soft, nontender, nondistended Extremities: Normal to inspection Skin: No rashes noted, no lesions or wounds seen Psych: Euthymic, normal affect Objective Data Vital Signs Vital Signs: Vital Signs - 24 hr 12/07/21 18:00 12/07/21 20:00 12/07/21 21:05 Temperature 97.4 F L Pulse Rate 88 91 100 Respiratory Rate 16 Blood Pressure 101/50 L Pulse Oximetry 94 Oxygen Delivery Oxygen Flow Rate 12/07/21 21:10 12/07/21 21:13 12/07/21 21:20 Temperature Pulse Rate 92 98 Respiratory Rate 18 18 Blood Pressure Pulse Oximetry 94 Oxygen Delivery Nasal Cannula Oxygen Flow Rate 3 12/07/21 20:00 12/07/21 21:00 12/07/21 22:00 Temperature Pulse Rate 92 80 Respiratory Rate Blood Pressure Pulse Oximetry 94 Oxygen Delivery Nasal Cannula Oxygen Flow Rate 3 12/07/21 23:54 12/08/21 00:00 12/08/21 00:00 Temperature 97.6 F Pulse Rate 84 83 Respiratory Rate 20 Blood Pressure 94/53 L Pulse Oximetry 96 96 Oxygen Delivery Nasal Cannula Oxygen Flow Rate 3 12/08/21 02:00 12/08/21 02:41 12/08/21 02:52 Temperature Pulse Rate 81 95 99 Respiratory Rate 18 18 Blood Pressure Pulse Oximetry Oxygen Delivery Oxygen Flow Rate 12/08/21 04:00 12/08/21 04:00 12/08/21 04:00 Temperature 97.8 F Pulse Rate 88 83 Respiratory Rate 16 Blood Pressure 103/63 Pulse Oximetry 91 91 Oxygen Delivery Nasal Cannula Oxygen Flow Rate 2 12/08/21 06:00 12/08/21 07:56 12/08/21 08:20 Temperature 97.3 F L Pulse Rate 90 84 95 Respiratory Rate 16 18 Blood Pressure 88/53 L Pulse Oximetry 94 Oxygen Delivery Oxygen Flow Rate 12/08/21 08:29 12/08/21 08:31 12/08/21 12:06 Temperature Pulse Rate 95 201 H 79 Respiratory Rate 18 Blood Pressure 95/58 L 83/57 L Pulse Oximetry 93 Oxygen Delivery Oxygen Flow Rate 12/08/21 12:49 12/08/21 08:00 12/08/21 10:00 Temperature 98.2 F Pulse Rate 73 Respiratory Rate 16 Blood Pressure 85/68 L
--- NOTE | 2021-12-08 19:36 | PC.NURSE ---
Patient's home medications locked in room 232 closet. 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
[2021-12-08] MEDS: METOPROLOL TARTRATE 12.5 MG TABLET PO (20:44)
[2021-12-08] MEDS: APIXABAN 5 MG TABLET PO (20:44)
[2021-12-09] VITALS (21 sets, daily range): BP systolic 97–110; BP diastolic 61–67; PULSE 59–138; RESP 16–22; TEMP 35.7–36.5; O2SAT 83–98
[2021-12-09 05:34] LABS: Basophils Absolute Auto 0.1 K/mm3 (0.0-0.1); Basophils Percent Auto 0.9 % (0.2-1.2); Eosinophils Absolute Auto 0.3 K/mm3 (0-0.3); Eosinophils Percent Auto 3.3 % (0-4.4); Hematocrit 58.9 % (37.0-47.0); Hemoglobin 19.5 g/dL (12.0-15.0); Immature Granulocyte Absolute 0.03 K/mm3 (0.00-0.031); Immature Granulocyte Percent A 0.4 % (0-0.5); Lymphocytes Percent Auto 22.1 % (18.3-44.2); Mean Corpuscular HGB Conc 33.1 g/dl (32-36); Mean Corpuscular Hemoglobin 35.1 pg (26-34); Mean Corpuscular Volume 105.9 fl (80-100); Mean Platelet Volume 10.1 fl (7.4-10.4); Monocytes Absolute Auto 0.8 K/mm3 (0.1-0.6); Neutrophils Absolute Auto 4.9 K/mm3 (1.3-6.7); Neutrophils Percent Auto 63.3 % (45.5-73.1); Platelet Count Result 296 k/mm3 (150-375); Red Blood Count 5.56 M/mm3 (4.2-5.4); Red Cell Distribution Width 13.9 % (11.5-14.5); White Blood Count 7.7 K/mm3 (4.5-10.0)
[2021-12-09 05:50] LABS: Alanine Aminotransferase 19 U/L (6-35); Albumin Level 3.4 g/dL (3.5-5.1); Alkaline Phosphatase 59 U/L (38-126); Anion Gap 4 mmol/L (8-16); Aspartate Amino Transferase 24 U/L (14-36); Blood Urea Nitrogen 36 mg/dL (7-17); Calcium 8.6 mg/dL (8.4-10.2); Carbon Dioxide 38 mmol/L (22-30); Chloride 93 mmol/L (98-107); Estimated CRCL calculation 43 ml/min; Estimated Glomerular Filt Rate > 60; Glucose 109 mg/dL (65-110); Potassium 3.8 mmol/L (3.4-5.0); Sodium 135 mmol/L (137-145)
[2021-12-09 06:10] LABS: Free T4 Free Thyroxine 1.26 ng/mL (0.78-2.19)
--- NOTE | 2021-12-09 09:19 | PM.IMPN ---
Progress Note: A&P Assessment and Plan (1) Acute dyspnea: Code(s): R06.00 - Dyspnea, unspecified Status: Acute Assessment and Plan: Resolved (2) Chest pain: Code(s): R07.9 - Chest pain, unspecified Status: Acute Assessment and Plan: Essentially resolved, likely 2/2 PE (3) Elevated troponin: Code(s): R77.8 - Other specified abnormalities of plasma proteins Status: Acute Assessment and Plan: As above (4) Emphysema of lung: Code(s): J43.9 - Emphysema, unspecified Status: Acute Assessment and Plan: Stable (5) Sleep apnea: Code(s): G47.30 - Sleep apnea, unspecified Status: Acute Assessment and Plan: [facility]nea[facility] on 4 L oxygen, will need outpatient sleep study (6) Chronic pain syndrome: Code(s): G89.4 - Chronic pain syndrome Status: Acute Assessment and Plan: home meds restarted, stable (7) Pulmonary embolism: Code(s): I26.99 - Other pulmonary embolism without acute cor pulmonale Status: Acute Assessment and Plan: continue a/c, transition to eliquis (8) Atrial fibrillation: Code(s): I48.91 - Unspecified atrial fibrillation Status: Acute Assessment and Plan: appreciate cardio consultation, continue amio drip, transitioned to oral metoprolol if possible (9) Secondary polycythemia: Code(s): D75.1 - Secondary polycythemia Status: Acute Assessment and Plan: stable (10) S/P bilateral BKA (below knee amputation): Code(s): Z89.512 - Acquired absence of left leg below knee; Z89.511 - Acquired absence of right leg below knee Status: Acute Assessment and Plan: wheelchair bound at baseline Plan DVT prophylaxis with eliquis GI prophylaxis not indicated Code status full code Subjective Date/time seen: 12/09/21 09:19 Interval history: Patient sitting up in bed, resting comfortably. No complaints. No overnight events noted. No chest pain or shortness of breath. No nausea, vomiting or diarrhea. No fevers or chills. Review of Systems Review of Systems: 12 point review of systems was assessed and was negative except as noted in the HPI Exam Narrative: General: No acute distress, alert and oriented per baseline, comfortable on 2L nc HEENT: Atraumatic, normocephalic, mucous membranes moist CV: Regular rate and rhythm, S1, S2 Lungs: Clear to auscultation bilaterally, no rales or crackles noted, no wheezes, good air entry Abdomen: Soft, nontender, nondistended Extremities: Normal to inspection Skin: No rashes noted, no lesions or wounds seen Psych: Euthymic, normal affect Objective Data Vital Signs Vital Signs: Vital Signs - 24 hr 12/08/21 12:06 12/08/21 12:49 12/08/21 10:00 Temperature 98.2 F Pulse Rate 79 73 Respiratory Rate 16 Blood Pressure 83/57 L 85/68 L Pulse Oximetry 93 94 92 Oxygen Delivery Nasal Cannula Oxygen Flow Rate 2 12/08/21 14:14 12/08/21 10:00 12/08/21 12:00 Temperature Pulse Rate 144 H 154 H 78 Respiratory Rate Blood Pressure Pulse Oximetry Oxygen Delivery Oxygen Flow Rate 12/08/21 14:00 12/08/21 16:00 12/08/21 16:00 Temperature Pulse Rate 80 76 78 Respiratory Rate Blood Pressure Pulse Oximetry Oxygen Delivery Oxygen Flow Rate 12/08/21 12:00 12/08/21 16:00 12/08/21 18:00 Temperature Pulse Rate 84 Respiratory Rate Blood Pressure Pulse Oximetry 92 92 Oxygen Delivery Nasal Cannula Nasal Cannula Oxygen Flow Rate 2 2 12/08/21 20:00 12/08/21 20:44 12/08/21 20:00 Temperature 97.8 F Pulse Rate 85 97 Respiratory Rate 16 Blood Pressure 97/64 L Pulse Oximetry 100 100 Oxygen Delivery Nasal Cannula Oxygen Flow Rate 2 12/08/21 23:04 12/09/21 00:00 12/08/21 20:00 Temperature 97 F L Pulse Rate 76 82 Respiratory Rate 16 Blood Pressure 103/66 Pulse Oximetry 95 94 Oxygen Delivery Charanjit
[2021-12-09] MEDS: traMADol HCL (*CRX) 50 MG TABLET PO (09:36)
[2021-12-09] MEDS: METOPROLOL TARTRATE 12.5 MG TABLET PO ×2 (09:37→20:39)
[2021-12-09] MEDS: GABAPENTIN 400 MG CAPSULE 800 MG PO ×2 (09:37→17:54)
[2021-12-09] MEDS: APIXABAN 5 MG TABLET PO ×2 (09:37→13:26)
[2021-12-09] MEDS: ASPIRIN 81 MG ENTERIC TABLET PO (09:37)
[2021-12-09] MEDS: ATORVASTATIN 20 MG TABLET PO (09:37)
[2021-12-09] MEDS: AMIODARONE 150 MG/D5W 100 ML 150 MG/100 ML BAG 600 MG IV CONT (09:59)
[2021-12-09] MEDS: AMIODARONE 360 MG/D5W 200 ML 360 MG/200 ML BAG 33.33 MG IV CONT (09:59)
--- NOTE | 2021-12-09 10:09 | PM.PNCARD ---
Progress Note: A&P Assessment and Plan (1) Pulmonary embolism: Code(s): I26.99 - Other pulmonary embolism without acute cor pulmonale Status: Acute (2) Chronic obstructive pulmonary disease, unspecified: Code(s): J44.9 - Chronic obstructive pulmonary disease, unspecified Status: Acute (3) Tobacco use: Code(s): Z72.0 - Tobacco use Status: Acute (4) Hypoxia: Code(s): R09.02 - Hypoxemia Status: Acute (5) Acute dyspnea: Code(s): R06.00 - Dyspnea, unspecified Status: Acute (6) Elevated troponin: Code(s): R77.8 - Other specified abnormalities of plasma proteins Status: Acute (7) Atrial fibrillation: Code(s): I48.91 - Unspecified atrial fibrillation Status: Acute Plan 1. New onset atrial fibrillation. Unable to rate control with metoprolol or CCB due to relative hypotension. Will use IV amiodarone, hopefully this will restore sinus rhythm once again. Would wish to avoid [facility] use of amiodarone given chronic lung disease. Anticoagulation with apixaban. 2. Patient appears euvolemic on exam, would avoid further diuresis. Subjective Date/time seen: 12/09/21 10:09 Cardiology follow up for atrial fibrillation, CHF Reverted back to atrial fibrillation this morning with variable rate between 120-160bpm. Asymptomatic. She's feeling about the same today as she was yesterday. Complaining of some pleuritic sounding chest pain when she takes deep breaths. Review of Systems Review of Systems: All systems reviewed & are unremarkable except as noted in HPI and below Constitutional: Constitutional: Denies body ache(s), Denies chills, Denies night sweats and Denies weakness Cardiovascular: Cardiovascular: Reports as per HPI Respiratory: Respiratory: Reports as per HPI Gastrointestinal: Gastrointestinal: Denies abdominal pain, Denies nausea and Denies vomiting Neurologic: Reports system reviewed and no additional complaints, except as documented and Denies weakness Hematologic/Lymphatic: Hematologic/Lymphatic: Denies easy bleeding and Denies easy bruising Exam Const: General: comfortable and no acute distress Eyes: General: appearance normal, both eyes and all related structures Neck: Neck: no JVD Resp: Auscultation: no crackles, no rales, no rhonchi and diminished lung sounds Cardio: Rate: tachycardic Rhythm: abnormal rhythm irregularly irregular Heart sounds: no murmurs Neuro: Speech: normal speech Extrem: Other: Bilateral BKA Psych: Mental Status: mental status grossly normal Objective Data Vital Signs Vital Signs: Vital Signs - 24 hr 12/08/21 12:06 12/08/21 12:49 12/08/21 14:14 Temperature 36.8 C Pulse Rate 79 73 144 H Respiratory Rate 16 Blood Pressure 83/57 L 85/68 L Pulse Oximetry 93 94 Oxygen Delivery Oxygen Flow Rate 12/08/21 12:00 12/08/21 14:00 12/08/21 16:00 Temperature Pulse Rate 78 80 76 Respiratory Rate Blood Pressure Pulse Oximetry Oxygen Delivery Oxygen Flow Rate 12/08/21 16:00 12/08/21 12:00 12/08/21 16:00 Temperature Pulse Rate 78 Respiratory Rate Blood Pressure Pulse Oximetry 92 92 Oxygen Delivery Nasal Cannula Nasal Cannula Oxygen Flow Rate 2 2 12/08/21 18:00 12/08/21 20:00 12/08/21 20:44 Temperature 36.6 C Pulse Rate 84 85 97 Respiratory Rate 16 Blood Pressure 97/64 L Pulse Oximetry 100 Oxygen Delivery Oxygen Flow Rate 12/08/21 20:00 12/08/21 23:04 12/09/21 00:00 Temperature 36.1 C L Pulse Rate 76 Respiratory Rate 16 Blood Pressure 103/66 Pulse Oximetry 100 95 94 Oxygen Delivery Nasal Cannula Nasal Cannula Oxygen Flow Rate 2 2 12/08/21 20:00 12/08/21 22:00 12/09/21 00:00 Temperature Pulse Rate 82 75 77 Respiratory Rate Blood Pressure Pulse Oximetry Oxygen Delivery Oxygen Flow Rate 12/09/21 02:00 12/09/21 00:00 12/09/21 04:00 Temperature 36.5 C
[2021-12-09] MEDS: UMECLIDINIUM/VILANTEROL 62.5-25 MCG ELLIPTA 1 PUFF INHALATION (10:12)
--- NOTE | 2021-12-09 13:21 | PM.PNPUL ---
Progress Note: A&P Assessment and Plan (1) Pulmonary embolism: Code(s): I26.99 - Other pulmonary embolism without acute cor pulmonale Status: Acute Assessment and Plan: Patient presents with a recent airplane trip, hypoxemia, positive D-dimer, echocardiogram with a moderately enlarged right ventricle and moderately reduced right ventricular function with relative sparing of the apex consistent with a Helio sign, positive troponins, and a CT angiogram of the chest consistent with a right lower lobe segmental filling defect. This has more of an chronic appearance on the CT scan. Lower extremity Dopplers have been ordered. The patient has hypoxia requiring 3 L nasal cannula today. I Believe the patient has a provoked pulmonary embolism and agree with Lovenox 1 milligram/kilos subcu b.i.d.. 12/08 Patient tells me that her breathing is near normal today. She has no additional throat pain. She denies fever, chills, chest pain or hemoptysis. Patient is on 2 L nasal cannula saturation 91%. White blood cell count 10.1, creatinine 1.0. Patient is status post bilateral BKA and her lower extremity Dopplers are negative for DVT. Patient appears to be tolerating Lovenox without any bleeding complications and would transition patient to a DOAC that her insurance will cover. 12/09 Agree with Eliquis dose of 10 mg p.o. b.i.d. x7 days then 5 mg p.o. b.i.d.. Follow up in pulmonary clinic in 3-4 weeks. I gave her our business card and informed our clinical laboratory director. (2) Chronic obstructive pulmonary disease, unspecified: Code(s): J44.9 - Chronic obstructive pulmonary disease, unspecified Status: Acute Assessment and Plan: The patient has a history of 49 pack year tobacco use, currently smoking, stated that she has PFTs and was told she has COPD, CT of the chest on 06/19/2016 has mild apical predominant centrilobular emphysema and CT scan of the chest on 12/07/2021 demonstrates moderate apical predominant centrilobular emphysema. Patient was previously on no oxygen, had no exacerbations in the last year and was maintained on bevespi. patient has been polycythemic for many years. I saw Hematology consult note from 09/23/2009 with a hematocrit of 53%. [employer] 2 mutation study was sent and was negative. At that time it was felt that she is polycythemic was secondary tobacco smoke and lung disease. On 04/29/2015 her hemoglobin was 19.6. 12/07 currently the patient denies any wheezing, cough, phlegm production and I do not believe she is having a COPD exacerbation, pneumonia or tracheobronchitis at this time. At this time I will place the patient on albuterol 2.5 mg nebulizers and ipratropium 0.5 mg nebulizers Q.6 hours. If she remains stable will switch her to long-acting beta agonist and long-acting muscarinic antagonist. 12/08 No evidence of COPD exacerbation. I will change the patient to Anoro Ellipta and discontinue nebulizers today. 12/09 Patient states she is breathing well and has no wheezes on exam on the Anoro Ellipta. Patient should be discharged on bevespi and rescue albuterol. (3) Congestive heart failure: Code(s): I50.9 - Heart failure, unspecified Status: Acute Assessment and Plan: 12/07 Patient with a history of congestive heart failure and currently with elevated BNP but does not appear clinically volume overloaded on exam. Patient has improved with Lasix diuresis per Cardiology and hospitalist teams. 12/07 Remains on Lasix 40 mg IV b.i.d.. Diuresis per Cardiology and hospitalist teams. 12/08 patient with atrial fibrillation and has been started on an IV amiodarone drip. (4) Sleep apnea: Code(s): G47.30 - Sleep apnea, unspecified Status: Acute Assessment and Plan: On 06/13/2021: Patient had a home sleep study with an AHI of 6.3 and 219 minutes with saturations below 85%. Recommendation was for auto Pap 4-20 with the patient tells me she declined thi
[2021-12-09] MEDS: AMIODARONE 360 MG/D5W 200 ML 360 MG/200 ML BAG 16.67 MG IV CONT (15:49)
[2021-12-09] MEDS: APIXABAN 5 MG TABLET 10 MG PO (20:39)
[2021-12-10] VITALS (19 sets, daily range): BP systolic 100–112; BP diastolic 58–71; PULSE 56–559; RESP 12–18; TEMP 36.1–36.8; O2SAT 87–98
--- NOTE | 2021-12-10 00:13 | PCRCNOTE ---
Pt. placed on Apnea link at 4l/m on 12/09/21 @ 3702.
[2021-12-10] MEDS: AMIODARONE 360 MG/D5W 200 ML 360 MG/200 ML BAG 16.67 MG IV CONT (03:30)
[2021-12-10] MEDS: ACETAMINOPHEN 325 MG TABLET 650 MG PO (05:14)
--- NOTE | 2021-12-10 08:20 | PM.PNCARD ---
Progress Note: A&P Assessment and Plan (1) Atrial fibrillation: Code(s): I48.91 - Unspecified atrial fibrillation Status: Acute Plan 61-year-old lady with paroxysmal atrial fibrillation in the setting of pulmonary embolism and right ventricular strain. Will transition her to an oral dosage of amiodarone today at 800 mg daily. If she does not have any AF recurrences would consider discharge tomorrow to be reasonable. She will follow up with my partner, Dr. Terry in the office and anticipation would likely be to wean off of amiodarone in the next several months given her significant chronic lung disease. Mesfin Ayoub MD [facility] Subjective Date/time seen: Date of service: 12/10/21 08:21 Interval history: Follow-up visit in this 61-year-old woman with: Paroxysmal atrial fibrillation in the setting of pulmonary embolism and right ventricular strain. Patient is on IV amiodarone and back in sinus rhythm. Because her atrial fibrillation recurred it seems clear she will require antiarrhythmic therapy for the short term at least. My partner has recommended amiodarone will transition her to an oral dosage of that today. Exam Const: General: comfortable Other: Pleasant lady appears older than her stated age no distress HENMT: Mouth: Yes moist mucous membranes Eyes: Sclera: sclerae normal Neck: Neck: supple Resp: Effort & Inspection: normal respiratory effort Auscultation: clear to auscultation bilaterally Cardio: Rate: regular rate Rhythm: regular rhythm GI: GI Palp: Yes Soft to palpation Auscultation: normal bowel sounds Skin: General skin exam: normal color Neuro: Other: Alert and oriented x3 Extrem: Other: No edema Objective Data Vital Signs Vital Signs: Vital Signs - 24 hr 12/09/21 09:37 12/09/21 09:59 12/09/21 09:59 Temperature Pulse Rate 91 128 H 128 H Respiratory Rate Blood Pressure 110/67 110/67 Pulse Oximetry Oxygen Delivery Oxygen Flow Rate 12/09/21 10:12 12/09/21 10:00 12/09/21 12:18 Temperature 35.9 C L Pulse Rate 138 H 63 Respiratory Rate 22 H Blood Pressure 107/63 Pulse Oximetry 90 90 Oxygen Delivery Nasal Cannula Oxygen Flow Rate 3 12/09/21 12:00 12/09/21 12:00 12/09/21 14:00 Temperature Pulse Rate 65 61 Respiratory Rate Blood Pressure Pulse Oximetry 90 Oxygen Delivery Nasal Cannula Oxygen Flow Rate 3 12/09/21 12:00 12/09/21 14:00 12/09/21 15:49 Temperature Pulse Rate 61 62 65 Respiratory Rate Blood Pressure Pulse Oximetry Oxygen Delivery Oxygen Flow Rate 12/09/21 16:26 12/09/21 16:00 12/09/21 16:00 Temperature 35.9 C L Pulse Rate 66 64 Respiratory Rate 20 Blood Pressure 106/63 Pulse Oximetry 96 93 Oxygen Delivery Nasal Cannula Oxygen Flow Rate 3 12/09/21 18:00 12/09/21 20:00 12/09/21 20:00 Temperature 36.3 C L Pulse Rate 73 63 Respiratory Rate 16 Blood Pressure 99/61 L Pulse Oximetry 92 95 Oxygen Delivery Nasal Cannula Oxygen Flow Rate 3 12/09/21 20:39 12/09/21 20:00 12/09/21 22:00 Temperature Pulse Rate 62 63 59 L Respiratory Rate Blood Pressure Pulse Oximetry Oxygen Delivery Oxygen Flow Rate 12/10/21 00:00 12/10/21 00:00 12/10/21 00:00 Temperature 36.8 C Pulse Rate 559 H 58 L Respiratory Rate 16 Blood Pressure 109/71 Pulse Oximetry 98 96 Oxygen Delivery Nasal Cannula Oxygen Flow Rate 4 12/10/21 02:00 12/10/21 03:30 12/10/21 04:00 Temperature Pulse Rate 58 L 61 59 L Respiratory Rate Blood Pressure Pulse Oximetry Oxygen Delivery Oxygen Flow Rate 12/10/21 05:15 12/10/21 04:00 12/10/21 04:00 Temperature 36.1 C L Pulse Rate 60 67 Respiratory Rate 16 Blood Pressure 112/65 Pulse Oximetry 93 96 Oxygen Delivery Nasal Cannula Oxygen Flow Rate 4 12/10/21 06:00 Temperature Pulse Rate 58 L Respiratory Rate Blood Pressure Pulse Oxime
[2021-12-10 08:32] LABS: Basophils Absolute Auto 0.1 K/mm3 (0.0-0.1); Basophils Percent Auto 0.6 % (0.2-1.2); Eosinophils Absolute Auto 0.2 K/mm3 (0-0.3); Eosinophils Percent Auto 2.2 % (0-4.4); Hematocrit 54.2 % (37.0-47.0); Immature Granulocyte Absolute 0.04 K/mm3 (0.00-0.031); Immature Granulocyte Percent A 0.5 % (0-0.5); Lymphocytes Absolute Auto 1.47 K/mm3 (0.9-3.2); Mean Corpuscular HGB Conc 33.2 g/dl (32-36); Mean Corpuscular Hemoglobin 34.7 pg (26-34); Mean Corpuscular Volume 104.4 fl (80-100); Mean Platelet Volume 9.8 fl (7.4-10.4); Monocytes Absolute Auto 0.7 K/mm3 (0.1-0.6); Monocytes Percent Auto 8.3 % (2.6-8.5); Neutrophils Absolute Auto 5.8 K/mm3 (1.3-6.7); Neutrophils Percent Auto 70.4 % (45.5-73.1); Platelet Count Result 309 k/mm3 (150-375); Red Blood Count 5.19 M/mm3 (4.2-5.4); Red Cell Distribution Width 13.7 % (11.5-14.5); White Blood Count 8.2 K/mm3 (4.5-10.0)
[2021-12-10 08:51] LABS: Alanine Aminotransferase 19 U/L (6-35); Albumin Level 3.4 g/dL (3.5-5.1); Alkaline Phosphatase 63 U/L (38-126); Anion Gap 5 mmol/L (8-16); Aspartate Amino Transferase 23 U/L (14-36); Bilirubin,Total 0.4 mg/dL (0.2-1.3); Blood Urea Nitrogen 24 mg/dL (7-17); Calcium 8.2 mg/dL (8.4-10.2); Carbon Dioxide 37 mmol/L (22-30); Chloride 90 mmol/L (98-107); Estimated CRCL calculation 48 ml/min; Estimated Glomerular Filt Rate > 60; Glucose 105 mg/dL (65-110); Potassium 3.6 mmol/L (3.4-5.0); Sodium 132 mmol/L (137-145)
[2021-12-10] MEDS: UMECLIDINIUM/VILANTEROL 62.5-25 MCG ELLIPTA 1 PUFF INHALATION (08:57)
[2021-12-10] MEDS: METOPROLOL TARTRATE 12.5 MG TABLET PO ×2 (09:05→20:46)
[2021-12-10] MEDS: APIXABAN 5 MG TABLET 10 MG PO ×2 (09:06→20:46)
[2021-12-10] MEDS: GABAPENTIN 400 MG CAPSULE 800 MG PO ×2 (09:06→17:25)
[2021-12-10] MEDS: ASPIRIN 81 MG ENTERIC TABLET PO (09:06)
[2021-12-10] MEDS: ATORVASTATIN 20 MG TABLET PO (09:06)
--- NOTE | 2021-12-10 09:06 | PM.IMPN ---
Progress Note: A&P Assessment and Plan (1) Acute dyspnea: Code(s): R06.00 - Dyspnea, unspecified Status: Acute Assessment and Plan: Resolved (2) Chest pain: Code(s): R07.9 - Chest pain, unspecified Status: Acute Assessment and Plan: Essentially resolved, likely 2/2 PE (3) Elevated troponin: Code(s): R77.8 - Other specified abnormalities of plasma proteins Status: Acute Assessment and Plan: As above (4) Emphysema of lung: Code(s): J43.9 - Emphysema, unspecified Status: Acute Assessment and Plan: Stable (5) Sleep apnea: Code(s): G47.30 - Sleep apnea, unspecified Status: Acute Assessment and Plan: ApneaLink significantly improved on 4 L, will arrange for L nocturnally at discharge, repeat ApneaLink tonight on 4 L again (6) Chronic pain syndrome: Code(s): G89.4 - Chronic pain syndrome Status: Acute Assessment and Plan: home meds restarted, stable (7) Pulmonary embolism: Code(s): I26.99 - Other pulmonary embolism without acute cor pulmonale Status: Acute Assessment and Plan: continue a/c, transition to eliquis, currently on day 4 of a/c, will cont 10 mg BID for 3 more days, then decrease to 5 mg BID (8) Atrial fibrillation: Code(s): I48.91 - Unspecified atrial fibrillation Status: Acute Assessment and Plan: appreciate cardio consultation, amio drip discontinued, started on oral amiodarone after converting to normal sinus rhythm, will need to wean this on an outpatient basis as her PE resolves as patient has significant lung disease and would prefer not be on long-term amiodarone therapy (9) Secondary polycythemia: Code(s): D75.1 - Secondary polycythemia Status: Acute Assessment and Plan: stable (10) S/P bilateral BKA (below knee amputation): Code(s): Z89.512 - Acquired absence of left leg below knee; Z89.511 - Acquired absence of right leg below knee Status: Acute Assessment and Plan: wheelchair bound at baseline Plan DVT prophylaxis with eliquis GI prophylaxis not indicated Code status full code Subjective Date/time seen: 12/10/21 09:06 Interval history: Patient sitting up in bed, resting comfortably. No complaints. No overnight events noted. No chest pain or shortness of breath. No nausea, vomiting or diarrhea. No fevers or chills. Review of Systems Review of Systems: 12 point review of systems was assessed and was negative except as noted in the HPI Exam Narrative: General: No acute distress, alert and oriented per baseline, comfortable on 3L nc HEENT: Atraumatic, normocephalic, mucous membranes moist CV: Back in normal sinus rhythm, S1, S2 Lungs: Clear to auscultation bilaterally, no rales or crackles noted, no wheezes, good air entry Abdomen: Soft, nontender, nondistended Extremities: Normal to inspection Skin: No rashes noted, no lesions or wounds seen Psych: Euthymic, normal affect Objective Data Vital Signs Vital Signs: Vital Signs - 24 hr 12/09/21 09:37 12/09/21 09:59 12/09/21 09:59 Temperature Pulse Rate 91 128 H 128 H Respiratory Rate Blood Pressure 110/67 110/67 Pulse Oximetry Oxygen Delivery Oxygen Flow Rate 12/09/21 10:12 12/09/21 10:00 12/09/21 12:18 Temperature 96.7 F L Pulse Rate 138 H 63 Respiratory Rate 22 H Blood Pressure 107/63 Pulse Oximetry 90 90 Oxygen Delivery Nasal Cannula Oxygen Flow Rate 3 12/09/21 12:00 12/09/21 12:00 12/09/21 14:00 Temperature Pulse Rate 65 61 Respiratory Rate Blood Pressure Pulse Oximetry 90 Oxygen Delivery Nasal Cannula Oxygen Flow Rate 3 12/09/21 12:00 12/09/21 14:00 12/09/21 15:49 Temperature Pulse Rate 61 62 65 Respiratory Rate Blood Pressure Pulse Oximetry Oxygen Delivery Oxygen Flow Rate 12/09/21 16:26 12/09/21 16:00 12/09/21 16:00 Temper
[2021-12-10] MEDS: AMIODARONE HCL 200 MG TABLET 400 MG PO ×2 (09:07→20:46)
[2021-12-10] MEDS: polyethylene glycoL 3350 17 GM POWD.PACK PO (12:57)
[2021-12-11] VITALS (14 sets, daily range): BP systolic 100–119; BP diastolic 55–71; PULSE 56–69; RESP 14–18; TEMP 36–36.6; O2SAT 90–95
[2021-12-11 06:33] LABS: Basophils Absolute Auto 0.1 K/mm3 (0.0-0.1); Basophils Percent Auto 0.7 % (0.2-1.2); Eosinophils Absolute Auto 0.2 K/mm3 (0-0.3); Eosinophils Percent Auto 2.6 % (0-4.4); Hematocrit 55.1 % (37.0-47.0); Hemoglobin 17.8 g/dL (12.0-15.0); Immature Granulocyte Absolute 0.02 K/mm3 (0.00-0.031); Immature Granulocyte Percent A 0.3 % (0-0.5); Lymphocytes Absolute Auto 1.77 K/mm3 (0.9-3.2); Lymphocytes Percent Auto 24.3 % (18.3-44.2); Mean Corpuscular HGB Conc 32.3 g/dl (32-36); Mean Corpuscular Hemoglobin 34.6 pg (26-34); Monocytes Absolute Auto 0.8 K/mm3 (0.1-0.6); Monocytes Percent Auto 10.4 % (2.6-8.5); Neutrophils Absolute Auto 4.5 K/mm3 (1.3-6.7); Neutrophils Percent Auto 61.7 % (45.5-73.1); Platelet Count Result 327 k/mm3 (150-375); Red Blood Count 5.15 M/mm3 (4.2-5.4); Red Cell Distribution Width 13.7 % (11.5-14.5); White Blood Count 7.3 K/mm3 (4.5-10.0)
[2021-12-11 07:00] LABS: Alanine Aminotransferase 22 U/L (6-35); Albumin Level 3.3 g/dL (3.5-5.1); Alkaline Phosphatase 61 U/L (38-126); Aspartate Amino Transferase 25 U/L (14-36); Bilirubin,Total 0.6 mg/dL (0.2-1.3); Blood Urea Nitrogen 17 mg/dL (7-17); Calcium 8.2 mg/dL (8.4-10.2); Carbon Dioxide > 40 mmol/L (22-30); Chloride 90 mmol/L (98-107); Estimated CRCL calculation 43 ml/min; Estimated Glomerular Filt Rate > 60; Glucose 99 mg/dL (65-110); Potassium 4.5 mmol/L (3.4-5.0); Sodium 135 mmol/L (137-145)
--- NOTE | 2021-12-11 07:52 | PM.PNCARD ---
Progress Note: A&P Assessment and Plan (1) Atrial fibrillation: Code(s): I48.91 - Unspecified atrial fibrillation Status: Acute Plan 61-year-old lady with paroxysmal atrial fibrillation in the setting of pulmonary embolism. She is maintaining sinus rhythm on amiodarone. We will keep her on the current dosage for now. It sounds like she is anticipating discharge tomorrow and at that time as I mentioned in my previous no we will arrange follow-up in our office and subsequent weaning of amiodarone. Told the patient that it is not completely unreasonable for her to travel to [place] with her family and grandchildren next month if she is stable for a couple of more weeks prior to their departure. Is likely she will require oxygen and wheelchair transport around the [facility]. She will not be ambulating obviously being an amputee and will be transported around the [facility] in a wheelchair. Mesfin Ayoub MD [facility] Subjective Date/time seen: Date of service: 12/11/21 07:52 Interval history: Follow-up visit in this 61-year-old woman with paroxysmal atrial fibrillation presumably related to right ventricular strain in the setting of pulmonary embolism. She is on amiodarone and maintaining normal sinus rhythm. She is feeling relatively well this morning. She does not believe she is going home until tomorrow because things are not arrange regarding her oxygen requirements for discharge at this time. She is also questioning me as to whether a long planned trip to [facility] in [place] next month is reasonable. Exam Const: General: comfortable and no acute distress HENMT: Mouth: Yes moist mucous membranes Eyes: Sclera: sclerae normal Neck: Neck: supple Resp: Effort & Inspection: normal respiratory effort Auscultation: clear to auscultation bilaterally Cardio: Rate: regular rate Rhythm: regular rhythm GI: GI Palp: Yes Soft to palpation Auscultation: normal bowel sounds Skin: General skin exam: normal color Neuro: Other: Alert and oriented x3 Objective Data Vital Signs Vital Signs: Vital Signs - 24 hr 12/10/21 08:00 12/10/21 08:00 12/10/21 08:57 Temperature 36.3 C L Pulse Rate 56 L 82 Respiratory Rate 16 12 Blood Pressure 100/69 Pulse Oximetry 94 98 Oxygen Delivery Nasal Cannula Oxygen Flow Rate 3 Fraction of Inspired Oxygen 12/10/21 09:05 12/10/21 09:07 12/10/21 08:00 Temperature Pulse Rate 59 L 61 57 L Respiratory Rate Blood Pressure Pulse Oximetry Oxygen Delivery Oxygen Flow Rate Fraction of Inspired Oxygen 12/10/21 10:00 12/10/21 12:00 12/10/21 12:00 Temperature 36.6 C Pulse Rate 64 60 58 L Respiratory Rate 18 Blood Pressure 111/66 Pulse Oximetry 98 Oxygen Delivery Oxygen Flow Rate Fraction of Inspired Oxygen 12/10/21 14:14 12/10/21 16:00 12/10/21 16:00 Temperature 36.7 C Pulse Rate 65 60 62 Respiratory Rate 18 Blood Pressure 111/58 L Pulse Oximetry 91 94 Oxygen Delivery Oxygen Flow Rate 3 Fraction of Inspired Oxygen 32 12/10/21 19:41 12/10/21 20:00 12/10/21 20:46 Temperature 36.8 C Pulse Rate 68 68 Respiratory Rate 16 Blood Pressure 104/58 L Pulse Oximetry 87 L 92 Oxygen Delivery Nasal Cannula Oxygen Flow Rate 3 Fraction of Inspired Oxygen 12/10/21 20:46 12/10/21 22:10 12/10/21 20:00 Temperature Pulse Rate 68 64 66 Respiratory Rate Blood Pressure Pulse Oximetry 93 Oxygen Delivery Nasal Cannula Oxygen Flow Rate 4 Fraction of Inspired Oxygen 12/11/21 00:00 12/10/21 21:49 12/11/21 04:00 Temperature Pulse Rate 66 56 L Respiratory Rate Blood Pressure Pulse Oximetry 95 Oxygen Delivery Oxygen Flow Rate 4 Fraction of Inspired Oxygen 12/11/21 06:10 Temperature 36.6 C Pulse Rate 59 L Respiratory Rate 18 Blood Pressure 100/61 Pulse Oximetry 95 Oxygen Delivery Oxygen Flow Rate Fraction of Inspi
--- NOTE | 2021-12-11 08:11 | PM.DS ---
DS: Admitting Diagnosis Discharge Date December 12, 2021 Admitting Diagnosis Shortness of breath DS: Discharge Diagnosis Discharge Diagnosis (1) Acute dyspnea: Code(s): R06.00 - Dyspnea, unspecified Status: Acute Assessment and Plan: Resolved (2) Chest pain: Code(s): R07.9 - Chest pain, unspecified Status: Acute Assessment and Plan: Essentially resolved, likely 2/2 PE (3) Elevated troponin: Code(s): R77.8 - Other specified abnormalities of plasma proteins Status: Acute Assessment and Plan: As above (4) Emphysema of lung: Code(s): J43.9 - Emphysema, unspecified Status: Acute Assessment and Plan: Stable (5) Sleep apnea: Code(s): G47.30 - Sleep apnea, unspecified Status: Acute Assessment and Plan: ApneaLink significantly improved on 4 L, will arrange for L nocturnally at discharge, repeat ApneaLink tonight on 4 L again (6) Chronic pain syndrome: Code(s): G89.4 - Chronic pain syndrome Status: Acute Assessment and Plan: home meds restarted, stable (7) Pulmonary embolism: Code(s): I26.99 - Other pulmonary embolism without acute cor pulmonale Status: Acute Assessment and Plan: continue a/c, transition to eliquis, currently on day 4 of a/c, will cont 10 mg BID for 3 more days, then decrease to 5 mg BID (8) Atrial fibrillation: Code(s): I48.91 - Unspecified atrial fibrillation Status: Acute Assessment and Plan: appreciate cardio consultation, amio drip discontinued, started on oral amiodarone after converting to normal sinus rhythm, will need to wean this on an outpatient basis as her PE resolves as patient has significant lung disease and would prefer not be on long-term amiodarone therapy (9) Secondary polycythemia: Code(s): D75.1 - Secondary polycythemia Status: Acute Assessment and Plan: stable (10) S/P bilateral BKA (below knee amputation): Code(s): Z89.512 - Acquired absence of left leg below knee; Z89.511 - Acquired absence of right leg below knee Status: Acute Assessment and Plan: wheelchair bound at baseline Plan DVT prophylaxis with eliquis GI prophylaxis not indicated Code status full code DS: Summary Hospital Course Hospital Course: 61-year-old female with past medical history significant for COPD, lung nodules, bilateral lower extremity BKA who was essentially wheelchair-bound is presenting to the hospital with chest pain. Patient states she was in [place] on vacation and while she was there she started getting chest pain. She went to the ER there and was admitted to the hospital and placed on supplemental oxygen. They thought she was in heart failure. She then flew home, and in came to the ER here because she continued to not feel well. In the ER, she was noted to have chest pain, shortness a breath, elevated BNP, elevated troponins and Cardiology was consulted for concerns of CHF exacerbation. CTA of chest showed right lower lobe PE, lower extremity Dopplers were negative for clot. Patient was started on therapeutic anticoagulation. She was diuresed by Cardiology for possible heart failure. And she was treated for COPD with inhalers and breathing treatments. Echo was ordered and showed an EF of 60-65%, grade 1 diastolic dysfunction as well as moderate pulmonary hypertension. Patient was noted to have new onset atrial fibrillation the required amiodarone to convert. She then flipped back into AFib is given another amiodarone bolus and flipped back in normal sinus rhythm. She was then transitioned to oral amiodarone. This is to follow-up with outpatient Cardiology to be weaned off as amiodarone is not a good long-term medication and some URTI as lung disease. Patient also had untreated sleep apnea and required up to 4 L of oxygen here to prevent significant desaturations. Pulmonology was consulted and kiara edouard
[2021-12-11] MEDS: UMECLIDINIUM/VILANTEROL 62.5-25 MCG ELLIPTA 1 PUFF INHALATION (08:52)
[2021-12-11] MEDS: GABAPENTIN 400 MG CAPSULE 800 MG PO ×2 (10:07→17:04)
[2021-12-11] MEDS: polyethylene glycoL 3350 17 GM POWD.PACK PO (10:07)
[2021-12-11] MEDS: AMIODARONE HCL 200 MG TABLET 400 MG PO ×2 (10:08→22:11)
[2021-12-11] MEDS: ASPIRIN 81 MG ENTERIC TABLET PO (10:08)
[2021-12-11] MEDS: APIXABAN 5 MG TABLET 10 MG PO ×2 (10:08→22:14)
[2021-12-11] MEDS: ATORVASTATIN 20 MG TABLET PO (10:10)
[2021-12-11] MEDS: METOPROLOL TARTRATE 12.5 MG TABLET PO ×2 (10:11→22:14)
--- NOTE | 2021-12-11 11:57 | HOMEO2EVAL ---
Evaluation was performed at [facility]
--- NOTE | 2021-12-11 16:44 | PCRCNOTE ---
Attempted to set up Pt. with home oxygen for discharge home. Pt. stated she already had a home care company, [facility]. Pt. stated she's had equipment at home since April from this company but she doesn't use it because they just set the equipment inside her front door when they delivered it and gave her no instructions on how to use it. Pt. states she just set it in the bedroom and has called them several times to come and get it but no one has come. Pt. is now stating she wants to switch companies. Dr. Shilpa Melgar was notified of situation.
--- NOTE | 2021-12-11 16:58 | PM.IMPN ---
Progress Note: A&P Assessment and Plan (1) Acute dyspnea: Code(s): R06.00 - Dyspnea, unspecified Status: Acute Assessment and Plan: Resolved (2) Chest pain: Code(s): R07.9 - Chest pain, unspecified Status: Acute Assessment and Plan: Essentially resolved, likely 2/2 PE (3) Elevated troponin: Code(s): R77.8 - Other specified abnormalities of plasma proteins Status: Acute Assessment and Plan: As above (4) Emphysema of lung: Code(s): J43.9 - Emphysema, unspecified Status: Acute Assessment and Plan: Stable (5) Sleep apnea: Code(s): G47.30 - Sleep apnea, unspecified Status: Acute Assessment and Plan: ApneaLink significantly improved on 4 L, will arrange for L nocturnally at discharge, repeat ApneaLink tonight on 4 L again (6) Chronic pain syndrome: Code(s): G89.4 - Chronic pain syndrome Status: Acute Assessment and Plan: home meds restarted, stable (7) Pulmonary embolism: Code(s): I26.99 - Other pulmonary embolism without acute cor pulmonale Status: Acute Assessment and Plan: continue a/c, transition to eliquis, currently on day 4 of a/c, will cont 10 mg BID for 3 more days, then decrease to 5 mg BID (8) Atrial fibrillation: Code(s): I48.91 - Unspecified atrial fibrillation Status: Acute Assessment and Plan: Remains rate controlled in normal sinus rhythm, continue amiodarone for now, will need to wean on outpatient basis (9) Secondary polycythemia: Code(s): D75.1 - Secondary polycythemia Status: Acute Assessment and Plan: stable (10) S/P bilateral BKA (below knee amputation): Code(s): Z89.512 - Acquired absence of left leg below knee; Z89.511 - Acquired absence of right leg below knee Status: Acute Assessment and Plan: wheelchair bound at baseline Plan Discharge tomorrow on home oxygen, 2-3 L during the day and 4 L at night DVT prophylaxis with eliquis GI prophylaxis not indicated Code status full code Subjective Date/time seen: 12/11/21 16:58 Interval history: No overnight events noted. No chest pain or shortness of breath. No nausea, vomiting or diarrhea. No fevers or chills. Review of Systems Review of Systems: 12 point review of systems was assessed and was negative except as noted in the HPI Exam Narrative: General: No acute distress, alert and oriented per baseline, comfortable on 3L nc HEENT: Atraumatic, normocephalic, mucous membranes moist CV: Regular rate and rhythm, S1, S2 Lungs: Clear to auscultation bilaterally, no rales or crackles noted, no wheezes, good air entry Abdomen: Soft, nontender, nondistended Extremities: Normal to inspection Skin: No rashes noted, no lesions or wounds seen Psych: Euthymic, normal affect Objective Data Vital Signs Vital Signs: Vital Signs - 24 hr 12/10/21 19:41 12/10/21 20:00 12/10/21 20:46 Temperature 98.3 F Pulse Rate 68 68 Respiratory Rate 16 Blood Pressure 104/58 L Pulse Oximetry 87 L 92 Oxygen Delivery Nasal Cannula Oxygen Flow Rate 3 12/10/21 20:46 12/10/21 22:10 12/10/21 20:00 Temperature Pulse Rate 68 64 66 Respiratory Rate Blood Pressure Pulse Oximetry 93 Oxygen Delivery Nasal Cannula Oxygen Flow Rate 4 12/11/21 00:00 12/10/21 21:49 12/11/21 04:00 Temperature Pulse Rate 66 56 L Respiratory Rate Blood Pressure Pulse Oximetry 95 Oxygen Delivery Oxygen Flow Rate 4 12/11/21 06:10 12/11/21 08:00 12/11/21 08:52 Temperature 97.9 F 96.8 F L Pulse Rate 59 L 59 L Respiratory Rate 18 16 Blood Pressure 100/61 104/55 L Pulse Oximetry 95 92 90 Oxygen Delivery Nasal Cannula Oxygen Flow Rate 3 12/11/21 10:08 12/11/21 10:11 12/11/21 08:00 Temperature Pulse Rate 69 64 Respiratory Rate Blood Pressure Pulse Oximetry 93 Oxygen Delivery Nasal Cannula Oxyg
--- NOTE | 2021-12-11 18:12 | PC.NURSE ---
This patient, Divya Torres, was transferred to [facility] on 12/11/21 at 1802. Personal belongings sent with patient. Report given to Aminata FISHER. Appropriate documentation sent with patient. Home medications and belongings all sent with patient and handed off to NATALIA.
[2021-12-12 07:32] LABS: Basophils Percent Auto 0.6 % (0.2-1.2); Eosinophils Absolute Auto 0.1 K/mm3 (0-0.3); Eosinophils Percent Auto 1.8 % (0-4.4); Hematocrit 53.3 % (37.0-47.0); Hemoglobin 17.2 g/dL (12.0-15.0); Immature Granulocyte Absolute 0.02 K/mm3 (0.00-0.031); Immature Granulocyte Percent A 0.3 % (0-0.5); Lymphocytes Absolute Auto 1.67 K/mm3 (0.9-3.2); Lymphocytes Percent Auto 24.8 % (18.3-44.2); Mean Corpuscular HGB Conc 32.3 g/dl (32-36); Mean Corpuscular Hemoglobin 34.7 pg (26-34); Mean Corpuscular Volume 107.7 fl (80-100); Mean Platelet Volume 10.2 fl (7.4-10.4); Monocytes Absolute Auto 0.7 K/mm3 (0.1-0.6); Monocytes Percent Auto 9.8 % (2.6-8.5); Neutrophils Absolute Auto 4.2 K/mm3 (1.3-6.7); Neutrophils Percent Auto 62.7 % (45.5-73.1); Platelet Count Result 353 k/mm3 (150-375); Red Blood Count 4.95 M/mm3 (4.2-5.4); Red Cell Distribution Width 13.6 % (11.5-14.5); White Blood Count 6.7 K/mm3 (4.5-10.0)
[2021-12-12 07:42] LABS: Alanine Aminotransferase 23 U/L (6-35); Albumin Level 3.2 g/dL (3.5-5.1); Alkaline Phosphatase 61 U/L (38-126); Anion Gap 4 mmol/L (8-16); Aspartate Amino Transferase 25 U/L (14-36); Bilirubin,Total 0.9 mg/dL (0.2-1.3); Blood Urea Nitrogen 16 mg/dL (7-17); Calcium 7.9 mg/dL (8.4-10.2); Carbon Dioxide 37 mmol/L (22-30); Chloride 92 mmol/L (98-107); Estimated CRCL calculation 55 ml/min; Estimated Glomerular Filt Rate > 60; Glucose 114 mg/dL (65-110); Sodium 133 mmol/L (137-145)
[2021-12-12 08:00] VITALS: PULSE 61; RESP 15; O2SAT 93
[2021-12-12 08:39] LABS: Macrocytosis 2+ (NORMAL); Platelet Estimate Adequate (Adequate)
[2021-12-12] MEDS: UMECLIDINIUM/VILANTEROL 62.5-25 MCG ELLIPTA 1 PUFF INHALATION (09:15)
--- NOTE | 2021-12-12 09:24 | HOMEO2EVAL ---
Evaluation was performed at [facility]
--- NOTE | 2021-12-12 09:37 | PCRCNOTE ---
Pt requesting new DME for home O2. Arranging new DME, [facility]. contact Amber. Will take tank to her room for transport home. DME will be in contact with her for arrangements on set up.
[2021-12-12 10:00] VITALS: PULSE 63
[2021-12-12] MEDS: GABAPENTIN 400 MG CAPSULE 800 MG PO (10:00)
[2021-12-12] MEDS: METOPROLOL TARTRATE 12.5 MG TABLET PO (10:00)
[2021-12-12 10:01] VITALS: PULSE 61
[2021-12-12] MEDS: ASPIRIN 81 MG ENTERIC TABLET PO (10:01)
[2021-12-12] MEDS: APIXABAN 5 MG TABLET 10 MG PO (10:01)
[2021-12-12] MEDS: AMIODARONE HCL 200 MG TABLET 400 MG PO (10:01)
[2021-12-12] MEDS: polyethylene glycoL 3350 17 GM POWD.PACK PO (10:01)
[2021-12-12] MEDS: ATORVASTATIN 20 MG TABLET PO (10:01)
--- NOTE | 2021-12-12 10:45 | PM.PNCARD ---
Progress Note: A&P Assessment and Plan (1) Atrial fibrillation: Code(s): I48.91 - Unspecified atrial fibrillation Status: Acute (2) Pulmonary embolism: Code(s): I26.99 - Other pulmonary embolism without acute cor pulmonale Status: Acute (3) Emphysema of lung: Code(s): J43.9 - Emphysema, unspecified Status: Acute (4) Chronic obstructive pulmonary disease, unspecified: Code(s): J44.9 - Chronic obstructive pulmonary disease, unspecified Status: Acute (5) Tobacco use: Code(s): Z72.0 - Tobacco use Status: Acute Plan -Continue with current dose of oral Amiodarone. Will wean as an outpatient. -Patient already scheduled for a clinic appointment with me this upcoming Sunday. -Okay for discharge from a cardiac standpoint. Time Spent With Patient Time with patient: 15 - 25 minutes Subjective Date/time seen: 12/12/21 10:45 Interval history: No acute events overnight. Patient doing well on current dose of Amio. Denies cardiac symptoms this morning. Review of Systems Constitutional: Constitutional: Denies body ache(s), Denies chills and Denies night sweats Cardiovascular: Cardiovascular: Denies chest pain, Denies lightheadedness and Denies palpitations Respiratory: Respiratory: Denies dyspnea Gastrointestinal: Gastrointestinal: Denies abdominal pain Neurologic: Reports system reviewed and no additional complaints, except as documented Psychiatric: Psychiatric: Reports no additional psychiatric complaints Exam Const: General: comfortable and no acute distress Neck: Neck: no JVD Resp: Auscultation: diminished lung sounds Cardio: Rate: regular rate Rhythm: regular rhythm Skin: General skin exam: normal color Extrem: Other: Bilateral BKA Psych: Mental Status: mental status grossly normal Objective Data Vital Signs Vital Signs: Vital Signs - 24 hr 12/11/21 15:48 12/11/21 12:00 12/11/21 16:00 Temperature 36.2 C L Pulse Rate 57 L 57 L 57 L Respiratory Rate 18 Blood Pressure 107/57 L Pulse Oximetry 93 Oxygen Delivery Oxygen Flow Rate Fraction of Inspired Oxygen 12/11/21 22:11 12/11/21 22:14 12/11/21 20:10 Temperature Pulse Rate 60 60 60 Respiratory Rate 18 Blood Pressure Pulse Oximetry 93 Oxygen Delivery Nasal Cannula Oxygen Flow Rate 3 Fraction of Inspired Oxygen 32 12/11/21 23:43 12/12/21 10:00 12/12/21 10:01 Temperature 36.1 C L Pulse Rate 61 63 61 Respiratory Rate 14 Blood Pressure 119/71 Pulse Oximetry 90 Oxygen Delivery Oxygen Flow Rate Fraction of Inspired Oxygen 12/12/21 08:00 Temperature Pulse Rate 61 Respiratory Rate 15 Blood Pressure Pulse Oximetry 93 Oxygen Delivery Nasal Cannula Oxygen Flow Rate 3 Fraction of Inspired Oxygen 32 Intake/Output Intake/Output: Intake & Output 12/09/21 12/10/21 12/11/21 12/12/21 23:59 23:59 23:59 23:59 Intake Total 1450 1321.3 560 990 Output Total 825 700 300 800 Balance 625 621.3 260 190 Meds/Results Medications: Active Medications Generic Name Dose Route Start Last Admin Trade Name Freq PRN Reason Stop Dose Admin Acetaminophen 650 mg 12/07/21 05:47 12/10/21 05:14 Acetaminophen 325 Mg Tablet PO 650 mg Q4H PRN Administration Mild Pain (1-3) Al Hydrox/Mg Hydrox/Simethicone 30 ml 12/07/21 05:47 Mag Hydrox/Al Hydrox/Simeth 30 Ml Udc PO Q6H PRN Indigestion Amiodarone HCl 400 mg 12/10/21 08:00 12/12/21 10:01 Amiodarone Hcl 200 Mg Tablet PO 400 mg Q12H CLIFF Administration Apixaban 10 mg 12/09/21 21:00 12/12/21 10:01 Apixaban 5 Mg Tablet PO 10 mg Q12HR CLIFF Administration Aspirin 81 mg 12/07/21 09:00 12/12/21 10:01 Aspirin 81 Mg Enteric Tablet PO 81 mg DAILY CLIFF Administration Atorvastatin Calcium 20 mg 12/07/21 09:00 12/12/21 10:01 Atorvastatin 20 Mg Tablet PO 20 mg DAILY CLIFF Administration Gabapentin 800 mg
[2021-12-12 14:00] VITALS: BP 101/64; PULSE 58; RESP 18; TEMP 36.5; O2SAT 95
== END 2021-12-12 18:42 | disposition home or self-care (01) | DRG 175 ==
LOC: ANHED 01:14 → ANHIMU 05:58 → ANH3MEDSUR 12-11 18:08
PROVIDERS: Internal Medicine Pulmonary Disease; Admitting Provider Internal Medicine; Emergency Provider Preventive Medicine Aerospace Medicine; PCP Family Medicine; Visit Provider Student in an Organized Health Care Education/Training Program
DX: I26.99 Other pulmonary embolism without acute cor pulmonale (principal); I50.31 Acute diastolic (congestive) heart failure; I11.0 Hypertensive heart disease with heart failure; R09.02 Hypoxemia; J43.9 Emphysema, unspecified; I48.0 Paroxysmal atrial fibrillation; Z20.822 Contact with and (suspected) exposure to COVID-19; G47.30 Sleep apnea, unspecified; G89.4 Chronic pain syndrome; R91.8 Other nonspecific abnormal finding of lung field; D75.1 Secondary polycythemia; F17.210 Nicotine dependence, cigarettes, uncomplicated; Z89.512 Acquired absence of left leg below knee; Z89.511 Acquired absence of right leg below knee
CPT/HCPCS: 36415; 70450; 71046; 71275; 80053; 80061; 83880; 84439; 84443; 84484; 85025; 85380; 87502; 93005; 93970; 94618; 94640; 94762; 96372; 96374; 96375; 96376; 99285; A9270; C8929; C9803; G0378; J0282; J1650; J1940; J2270; Q9957; Q9967; U0003; U0005

== ENCOUNTER 2022-01-20 16:32 | Emergency (ER) | payer MEDICARE, SELFPAY ==
[2022-01-20 17:37] VITALS: BP 118/50; PULSE 56; RESP 20; TEMP 36.7; O2SAT 95
--- NOTE | 2022-01-20 18:07 | ED.HA ---
HPI - Headache General Chief Complaint: Headache Stated Complaint: headaches ( sent her) Time Seen by Provider: 01/20/22 18:10 Source: patient, RN notes reviewed and old records reviewed Mode of arrival: ambulatory Limitations: no limitations History of Present Illness HPI Narrative: 61 YEAR OLD FEMALE PRESENTS TO [facility] ARE WITH EPISODES OF HEADACHE PAIN for the past month. Patient reports that she hit her head on asphalt a few months ago and has been experiencing some headaches associated with nausea for the past month,no headache at present time. Patient is alert and oriented x3, denies any headache at present time. Patient has history of PE diagnosed a few months ago when she was in [facility] ad she is presently on Eliquis. Patient has history of chronic pain syndrome and is on time released Oxycontin thru pain management. 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 She has had previous [place] has stated CHF, and hypertension. MD elicited complaint: headache Pertinent past history: recent trauma (hit head on asphalt few months ago) Onset (ago): month(s) (1) Pain scale (0-10): 0 Associated symptoms: nausea (at times) Related Data Home Medications Medication Instructions Recorded Confirmed oxycodone myristate 27 mg capsule 27 mg PO Q12H 02/07/21 01/21/22 sprinkle extended release 12hr(DON'T CRUSH) (Xtampza ER) furosemide 20 mg tablet 20 mg PO DAILY 12/07/21 01/21/22 gabapentin 800 mg tablet 800 mg PO BID 01/20/22 01/21/22 glycopyrrolate 9 mcg-formoterol 2 inh inhalation BID 01/20/22 01/21/22 4.8 mcg HFA aerosol inhaler (Bevespi Aerosphere) naloxone 4 mg/actuation nasal spray 1 spray intranasal DAILY PRN 01/20/22 01/21/22 (Drug) Ingestion Allergies Allergy/AdvReac Type Severity Reaction Status Date / Time carbamazepine Allergy Unknown Rash Verified 01/20/22 17:49 Review of Systems Review of Systems: CONSTITUTIONAL: Denies fever, chills, or sweats. EYES: Denies visual changes, redness, or discharge. ENT: Denies rhinorrhea, congestion, sore throat, or otalgia. CARDIOVASCULAR: Denies chest pain, palpitations, or edema. RESPIRATORY: Denies cough or dyspnea, does have COPD GASTROINTESTINAL: Denies abdominal pain, nausea, vomiting, or diarrhea. GENITOURINARY: Denies dysuria or hematuria. SKIN: Denies rash or itching. MUSCULOSKELETAL: Denies back pain, joint pain, or myalgia. NEUROLOGIC: Reports intermittent headaches associated with nause, no headache pain at present time, no numbness or feelings or weakness. PSYCHIATRIC: Denies anxiety or depression. All systems reviewed & are unremarkable except as noted in HPI and below [facility] [place] Past Medical History Medical History Anxiety disorder, unspecified Atrial fibrillation Chronic obstructive pulmonary disease Chronic pain syndrome Chronic respiratory failure with hypoxia Coronary artery disease Emphysema of lung Heart failure with preserved ejection fraction Pulmonary embolism Surgical History Surgical History History of below-knee amputation of both lower extremities History of tonsillectomy Family History Family History Grandparent Diabetes mellitus Father Hypertension Social History Social History Social History: Code status: Full code. Years smoked: 45 Smoking status: Former smoker Additional smoking assessment comments: She has not had any cigarettes since mid November 2021. Alcohol intake: current Drinks per week: 3 Substance use: never Substance use type: does not use Has the Lack of Transportation Kept You From Medical Appointments or From Getting Medications?: No Within the P
== END 2022-01-20 18:20 | disposition home or self-care (01) ==
PROVIDERS: Emergency Provider Registered Nurse; PCP Family Medicine
DX: R51.9 Headache, unspecified (principal); I48.91 Unspecified atrial fibrillation; J43.9 Emphysema, unspecified; Z79.891 Long term (current) use of opiate analgesic; Z87.891 Personal history of nicotine dependence
CPT/HCPCS: 99213; G0463

== ENCOUNTER 2022-01-21 14:16 | Inpatient (IN) | payer MEDICARE, SELFPAY ==
--- NOTE | ~2022-01-21 | XR_ITS ---
EXAMINATION: XR chest 1V portable DATE: 01/23/2022 10:15 INDICATION: Shortness of breath. TECHNIQUE: A single frontal view of the chest was obtained. COMPARISON: Chest 2 views 01/21/2022, chest CT 01/21/2022 FINDINGS: There are small right and moderate-sized left pleural effusions. There is a diffuse interst itial pattern, consistent with mild pulmonary edema. There are airspace opacities at the lung bases. No pneumothorax. There is enlargement of the cardiac silhouette. IMPRESSION: 1. Mild pulmonary edema. 2. Small right and moderate-sized left pleural effusions with worsening on the left. 3. Airspace opacities at the lung bases, likely atelectasis. 4. Enlargement of the cardiac silhouette, likely a combination of cardiomegaly and pericardial effusi on as seen on recent CT. Reviewed, dictated and finalized at location A. IMPRESSION: 1. Mild pulmonary edema. 2. Small right and moderate-sized left pleural effusions with worsening on the left. 3. Airspace opacities at the lung bases, likely atelectasis. 4. Enlargement of the cardiac silhouette, likely a combination of cardiomegaly and pericardial effusion as seen on recent CT.
--- NOTE | ~2022-01-21 | CT_ITS ---
EXAMINATION: CT brain wo con DATE: 01/23/2022 13:27 INDICATION: New onset superior headache. TECHNIQUE: Computed tomography (CT) of the head was performed without intravenous contrast. The mA wa s adjusted according to patient size. Iterative reconstruction technique was employed. The dose-lengt h product was 605.33 mGy-cm. COMPARISON: Head CT 12/07/2021 FINDINGS: There is no intracranial hemorrhage, acute infarction, or abnormal intracranial mass lesion . The ventricles are normal in size. There is mild mucosal thickening in the paranasal sinuses. There are small bilateral mastoid effusions. IMPRESSION: 1. Normal brain. Reviewed, dictated and finalized at location A. IMPRESSION: 1. Normal brain.
--- NOTE | ~2022-01-21 | XR_ITS ---
EXAMINATION: XR chest 1V portable DATE: 01/26/2022 06:18 INDICATION: Shortness of breath. TECHNIQUE: A single frontal view of the chest was obtained. COMPARISON: Chest 2 views 01/24/2022, chest CT 01/21/2022 FINDINGS: There are lucencies in the lungs, consistent with emphysema. There are airspace opacities i n the mid and lower lung zones. There are small pleural effusions. No pneumothorax. There is enlargem ent of the cardiac silhouette. IMPRESSION: 1. Worsened airspace opacities in the mid and lower lung zones, consistent with pulmonary edema versu s pneumonia. 2. Stable small pleural effusions. 3. Enlargement of the cardiac silhouette, likely a combination of cardiomegaly and pericardial effusi on. Reviewed, dictated and finalized at location A. IMPRESSION: 1. Worsened airspace opacities in the mid and lower lung zones, consistent with pulmonary edema versus pneumonia. 2. Stable small pleural effusions. 3. Enlargement of the cardiac silhouette, likely a combination of cardiomegaly and pericardial effusion.
--- NOTE | ~2022-01-21 | XR_ITS ---
EXAMINATION: XR chest 2V Exam Date/Time: 01/24/2022 13:40 CDT HISTORY: sob Comparison: 01/23/2022. RESULT: Lines, tubes, and devices: None. Lungs and pleura: Somewhat decreased diffuse reticular pattern and cephalization. Persistent bibasil ar consolidation and lateral costophrenic angle blunting.. Cardiomediastinal silhouette: Stable. Other: No acute osseous or upper abdominal finding. IMPRESSION: Slightly decreased vascular congestion/interstitial edema. Unchanged bibasilar atelectasis/consolidat ion. Unchanged moderate left and small right pleural effusions. Reviewed, dictated and finalized at location K. IMPRESSION: Slightly decreased vascular congestion/interstitial edema. Unchanged bibasilar atelectasis/consolidation. Unchanged moderate left and small right pleural effu sions.
--- NOTE | ~2022-01-21 | CT_ITS ---
EXAMINATION: CT diagnostic chest w con DATE: 01/21/2022 16:57 INDICATION: cardiomegaly, possible effusion TECHNIQUE: Computed tomography (CT) of the chest was performed with 100 mL Omnipaque-350 intravenous contrast. Automated exposure control and iterative reconstruction technique were employed. The dose-l ength product was 119.33 mGy-cm. COMPARISON: CTPA 12/07/2021. FINDINGS: CHEST: Thoracic aorta: No significant dilation. Mild arch calcification. Lung parenchyma and airways: Emphysematous change. Scattered sub-4 mm pulmonary nodules. Bibasilar at electasis. Airways are clear. Thoracic inlet, axillae and chest wall: No thyroid or soft tissue mass. No axillary lymphadenopathy. Mediastinum: No mass. Subcarinal lymphadenopathy. Central pulmonary artery dilation as can be seen wi th pulmonary arterial hypertension. Heart and pericardium: Mild cardiomegaly. Moderate pericardial effusion. Coronary artery calcifications: Absent. Pleura: Small bilateral pleural effusions. Upper abdomen: No significant finding. Thoracic bones: No acute osseous finding in the chest. IMPRESSION: Increasing size of the pericardial effusion, now moderate. Small bilateral pleural effusions. Subcari nal lymphadenopathy. Multiple sub-4 mm pulmonary nodules, prior recommendation for follow-up chest CT is unchanged. Reviewed, dictated and finalized at location K. IMPRESSION: Increasing size of the pericardial effusion, now moderate. Small bilateral pleu ral effusions. Subcarinal lymphadenopathy. Multiple sub-4 mm pulmonary nodules, prior recommendation for follow-up chest CT is unchanged.
--- NOTE | ~2022-01-21 | XR_ITS ---
XR chest 2V DATE: 01/28/2022 08:02 INDICATION: Shortness of breath TECHNIQUE: AP and lateral views COMPARISON: 02/12/2022 portable AP chest FINDINGS: There are persistent patchy infiltrates involving the mid and particularly lower lung zones , most prominent in the left lower lobe and right lung base. Mild pleural effusions. Cardiomegaly. There is pulmonary vascular congestion and redistribution. Phong B-lines consistent wi th pulmonary interstitial edema. No pneumothorax. IMPRESSION: Cardiomegaly, congestive changes and bilateral mid and particularly lower lung infiltrate s, greatest in the left lower lobe, small pleural effusions; little interval change since 01/26/2022 Reviewed, dictated and finalized at location A. IMPRESSION: Cardiomegaly, congestive changes and bilateral mid and particularly lower lung infiltrates, greatest in the left lower lobe, small pleural effusio ns; little interval change since 01/26/2022
--- NOTE | ~2022-01-21 | XR_ITS ---
EXAMINATION: XR chest 2V Exam Date/Time: 01/21/2022 14:50 CDT HISTORY: SOA.PNEUMONIA? C/O CLEARING THROAT. RECENT NONSMOKER. COPD Comparison: X-ray and CTPA 12/07/2021. RESULT: Lines, tubes, and devices: None. Lungs and pleura: Slightly increased diffuse reticular pattern and cephalization. Increased bilatera l costophrenic angle blunting. Cardiomediastinal silhouette: Increased heart size. Other: No acute osseous or upper abdominal finding. IMPRESSION: Increased heart size, may reflect a component of increasing pericardial effusion. New small bilateral pleural effusions. Mild interstitial pulmonary edema/vascular congestion. Reviewed, dictated and finalized at location K. IMPRESSION: Increased heart size, may reflect a component of increasing pericardial effusio n. New small bilateral pleural effusions. Mild interstitial pulmonary edema/vas cular congestion.
[2022-01-21 14:18] VITALS: BP 137/49; PULSE 56; RESP 17; TEMP 36.7; O2SAT 91
[2022-01-21 15:47] LABS: Basophils Absolute Auto 0.1 K/mm3 (0.0-0.1); Basophils Percent Auto 0.9 % (0.2-1.2); Eosinophils Absolute Auto 0.2 K/mm3 (0-0.3); Eosinophils Percent Auto 1.9 % (0-4.4); Hematocrit 45.7 % (37.0-47.0); Hemoglobin 15.3 g/dL (12.0-15.0); Immature Granulocyte Absolute 0.03 K/mm3 (0.00-0.031); Immature Granulocyte Percent A 0.3 % (0-0.5); Lymphocytes Absolute Auto 1.48 K/mm3 (0.9-3.2); Lymphocytes Percent Auto 12.4 % (18.3-44.2); Mean Corpuscular HGB Conc 33.5 g/dl (32-36); Mean Corpuscular Hemoglobin 33.8 pg (26-34); Mean Corpuscular Volume 100.9 fl (80-100); Mean Platelet Volume 10.5 fl (7.4-10.4); Monocytes Absolute Auto 1.3 K/mm3 (0.1-0.6); Monocytes Percent Auto 10.6 % (2.6-8.5); Neutrophils Absolute Auto 8.8 K/mm3 (1.3-6.7); Neutrophils Percent Auto 73.9 % (45.5-73.1); Platelet Count Result 363 k/mm3 (150-375); Red Blood Count 4.53 M/mm3 (4.2-5.4); Red Cell Distribution Width 13.3 % (11.5-14.5); White Blood Count 11.9 K/mm3 (4.5-10.0)
[2022-01-21 15:53] LABS: Anion Gap 9 mmol/L (8-16); Blood Urea Nitrogen 12 mg/dL (7-17); Calcium 8.6 mg/dL (8.4-10.2); Carbon Dioxide 34 mmol/L (22-30); Chloride 94 mmol/L (98-107); Estimated CRCL calculation 63 ml/min; Estimated Glomerular Filt Rate > 60; Glucose 96 mg/dL (65-110); Potassium 3.9 mmol/L (3.4-5.0); Sodium 137 mmol/L (137-145)
[2022-01-21 16:34] LABS: Influenza A QL RT-PCR Negative (Negative); Influenza B QL RT-PCR Negative (Negative); SARS-CoV-2 RNA PCR Negative
[2022-01-21 16:59] LABS: INR 1.3; Prothrombin Time 15.8 Seconds (11.1-14.7)
[2022-01-21 17:00] LABS: Partial Thromboplastin Time 32.6 SECONDS (22.3-36.8)
--- NOTE | 2022-01-21 17:28 | ED.GENADULT ---
HPI - General Adult General Chief complaint: Unspecified Stated complaint: pain with inspiration Time Seen by Provider: 01/21/22 14:36 History of Present Illness HPI narrative: Patient is a 61-year-old female who presents ER with shortness of breath. She has been having worsening shortness of breath over the last couple of days. No runny nose or sore throat or productive cough. Patient recently diagnosed with pulmonary emboli and has been started on Eliquis. She reports some of her discomfort is similar. She has not had any missed doses. Symptoms seem to be worse with laying back and moving forward. She has no new productive cough is concerned she could be developing pneumonia. She denies chest pain or chest pressure. Patient wears 3 L of oxygen chronically since having her PEs and has not had any increased oxygen requirement. Related Data Home Medications Medication Instructions Recorded Confirmed oxycodone myristate 27 mg capsule 27 mg PO Q12H 02/07/21 01/20/22 sprinkle extended release 12hr(DON'T CRUSH) (Xtampza ER) furosemide 20 mg tablet 20 mg PO DAILY 12/07/21 01/20/22 gabapentin 800 mg tablet 800 mg PO BID 01/20/22 01/20/22 glycopyrrolate 9 mcg-formoterol 2 inh inhalation BID 01/20/22 01/20/22 4.8 mcg HFA aerosol inhaler (Bevespi Aerosphere) naloxone 4 mg/actuation nasal spray 1 spray intranasal DAILY PRN 01/20/22 01/20/22 (Drug) Ingestion Allergies Allergy/AdvReac Type Severity Reaction Status Date / Time carbamazepine Allergy Unknown Rash Verified 01/20/22 17:49 Review of Systems Review of Systems: All systems reviewed & are unremarkable except as noted in HPI and below Constitutional: Constitutional: Denies chills and Denies fever(s) Cardiovascular: Cardiovascular: Denies chest pain, Denies rapid heart rate and Denies radiating jaw, neck or arm pain Respiratory: Respiratory: Denies cough, Reports dyspnea and Denies wheezing Gastrointestinal: Gastrointestinal: Denies abdominal pain, Denies diarrhea, Denies nausea and Denies vomiting [facility] Past Medical History Medical History (Updated 01/21/22 @ 20:38 by Yovanny Lester MD) Anxiety disorder, unspecified Atrial fibrillation Congestive heart failure Emphysema of lung Mediastinal lymphadenopathy Surgical History Surgical History S/P bilateral BKA (below knee amputation) Family History Family History Grandparent Diabetes mellitus Father Hypertension Social History Social History Years smoked: 45 Smoking status: Former smoker Alcohol intake: current Drinks per week: 3 Substance use: never Substance use type: does not use Has the Lack of Transportation Kept You From Medical Appointments or From Getting Medications?: No Within the Past 12 Months, Were You Worried Whether Your Food Would Run Out Before You Got Money to Buy More?: Never True What is Your Housing Situation Today?: I Have Housing Are You Worried That in the Next 2 Months, You May Not Have Your Own Housing to Live In?: No Do You Have Trouble Paying Your Heating Or Electricity Bill?: No Do You Have Trouble Paying For Medicines?: No Are You Currently Unemployed and Looking for Work?: No Highest Level of Education Completed: High School Diploma/GED Do You Have Trouble With Childcare or the Care of a Family Member?: No Spiritual care concerns: No Exam Narrative: GENERAL: Chronically ill-appearing, well-nourished, and in no acute distress. HEAD: Normocephalic, atraumatic. EYES: PERRL and EOMI. ENT: Mucous membranes moist. CHEST: Clear to auscultation. No respiratory distress. HEART: Regular rate and rhythm. Normal peripheral pulses. ABDOMEN: Soft, nontender, nondistended. EXTREMITIES: Bilateral BKA's. Normal strength and range of motion of upper extremities. SKIN: Warm, d
[2022-01-21 18:07] LABS: NT Pro B Type Natriuretic Pept 8220 pg/mL (5-100)
--- NOTE | 2022-01-21 18:16 | ECG_ITS ---
Measurements Intervals [place] Rate: 61 P: 48 [place]: 164 QRS: 83 QRSD: 111 T: 59 QT: 430 QTc: 436 Interpretive Statements SINUS RHYTHM LEFT ATRIAL ENLARGEMENT [-0.15mV P WAVE IN V1/V2] PROBABLE INFERIOR MYOCARDIAL INFARCTION , PROBABLY OLD [35 ms Q WAVE IN II/aVF] MODERATE T-WAVE ABNORMALITY, CONSIDER ANTERIOR ISCHEMIA [-0.1+ mV T WAVE IN V3/V4] COMPARED TO ECG 12/08/2021 09:36:25 NO SIGNIFICANT CHANGES Electronically Signed On 01-22-2022 12:14:41 CDT by Loretta Terry M.D.
[2022-01-21 18:52] VITALS: BP 102/67; PULSE 58; RESP 20; O2SAT 98
[2022-01-21 20:00] VITALS: PULSE 57
--- NOTE | 2022-01-21 20:00 | PM.IMHP ---
H&P: HPI History of Present Illness Date/Time: 01/21/22 20:00 Chief Complaint: Pain with inspiration. Narrative: This is a very pleasant 61-year-old female smoker with chronic respiratory failure on 3 liters nasal cannula, COPD, heart failure with preserved ejection fraction, coronary artery disease, suspected sleep apnea, paroxysmal atrial fibrillation, and history of pulmonary embolism on anticoagulation who presented to the emergency department from home for evaluation of pain with inspiration. She was recently admitted to the hospital and was diagnosed with a pulmonary embolism comment attributed to recent travel, and she is now on apixaban. She has been doing okay since that time and states 100% compliance with her medications. Over the last couple of days she has had pleuritic pain in the left chest, more so over the middle left ribcage near the mid axillary line. She was concerned that perhaps she was getting pneumonia as she just returned home from [place] and she reports that her [id number] contracted COVID while they were there however she has not had any symptoms of such. CT of the chest with contrast today showed no evidence of pneumonia or pulmonary edema though did note a moderate sized pericardial effusion which was not present several weeks ago. She is being admitted in this setting for further workup in Cardiology consultation. She denies fever, chills, sweats, syncope, near syncope, and exertional chest pain. She has no known history of autoimmune disease or hypothyroidism. She does not have renal failure. Review of Systems Review of Systems: Twelve systems were reviewed and are negative except for as per HPI. [facility] Past Medical History Medical History Anxiety disorder, unspecified Atrial fibrillation Chronic obstructive pulmonary disease Chronic pain syndrome Chronic respiratory failure with hypoxia Coronary artery disease Emphysema of lung Heart failure with preserved ejection fraction Pulmonary embolism Surgical History Surgical History History of below-knee amputation of both lower extremities History of tonsillectomy Family History Family History Grandparent Diabetes mellitus Father Hypertension Social History Social History Social History: Code status: Full code. Years smoked: 45 Smoking status: Former smoker Additional smoking assessment comments: She has not had any cigarettes since mid November 2021. Alcohol intake: current Drinks per week: 3 Substance use: never Substance use type: does not use Has the Lack of Transportation Kept You From Medical Appointments or From Getting Medications?: No Within the Past 12 Months, Were You Worried Whether Your Food Would Run Out Before You Got Money to Buy More?: Never True What is Your Housing Situation Today?: I Have Housing Are You Worried That in the Next 2 Months, You May Not Have Your Own Housing to Live In?: No Do You Have Trouble Paying Your Heating Or Electricity Bill?: No Do You Have Trouble Paying For Medicines?: No Are You Currently Unemployed and Looking for Work?: No Highest Level of Education Completed: High School Diploma/GED Do You Have Trouble With Childcare or the Care of a Family Member?: No Spiritual care concerns: No Meds Home Medications and Allergies Home Medications Medication Instructions Recorded Confirmed Type oxycodone myristate 27 mg capsule 27 mg PO Q12H 02/07/21 01/21/22 History sprinkle extended release 12hr(DON'T CRUSH) (Xtampza ER) furosemide 20 mg tablet 20 mg PO DAILY 12/07/21 01/21/22 History atorvastatin 20 mg tablet 20 mg PO DAILY 1 month #30 tabs 12/11/21 01/21/22 Rx metoprolol tartrate 25 mg tablet 12.5 mg PO BID 1 month #30 tabs
[2022-01-21 20:04] VITALS: BMI 18.8
--- NOTE | 2022-01-21 20:05 | ADMGEN ---
This patient, Divya Torres, was admitted to Medical Room 243-. Patient/family oriented to hospital policies and general routines including ID bracelet, bed and alarms, visiting hours, pain management, procedures, bathroom and other care routines, personal items, smoking policy, room service/diet, and visiting hours. Information on how to activate the Rapid Response Team has been discussed. Patient/Family are encouraged to report perceived risks to care and to ask questions if they do not understand what they are told or what they should do.
--- NOTE | 2022-01-21 20:56 | PHAR ---
DRUG NAME: XTAMPZA ER INGREDIENTS: OXYCODONE -- 27 MG RELATED DOCUMENTS: DRUGDEX EVALUATIONS - OXYCODONE COLOR: LIGHT PURI , WHITE IMPRINT: XTAMPZA ER 27 MG FORM: ORAL CAPSULE, EXTENDED RELEASE [id number]: BOTTLE OF 100
[2022-01-21] MEDS: HYDROcodone/acetaminophen (*CRX) 5-325 MG TABLET 1 TAB PO (21:39)
[2022-01-21 21:52] VITALS: BP 120/67; PULSE 70; RESP 16; TEMP 36.1; O2SAT 94
[2022-01-21 23:09] VITALS: O2SAT 94
--- NOTE | 2022-01-21 23:49 | ED.GENADULT ---
HPI - General Adult General Chief complaint: Unspecified Stated complaint: pain with inspiration Time Seen by Provider: 01/21/22 14:36 Related Data Home Medications Medication Instructions Recorded Confirmed oxycodone myristate 27 mg capsule 27 mg PO Q12H 02/07/21 01/21/22 sprinkle extended release 12hr(DON'T CRUSH) (Xtampza ER) furosemide 20 mg tablet 20 mg PO DAILY 12/07/21 01/21/22 gabapentin 800 mg tablet 800 mg PO BID 01/20/22 01/21/22 glycopyrrolate 9 mcg-formoterol 2 inh inhalation BID 01/20/22 01/21/22 4.8 mcg HFA aerosol inhaler (Bevespi Aerosphere) naloxone 4 mg/actuation nasal spray 1 spray intranasal DAILY PRN 01/20/22 01/21/22 (Drug) Ingestion Allergies Allergy/AdvReac Type Severity Reaction Status Date / Time carbamazepine Allergy Unknown Rash Verified 01/20/22 17:49 [facility] Past Medical History Medical History (Updated 01/21/22 @ 20:38 by Yovanny Lester MD) Anxiety disorder, unspecified Atrial fibrillation Congestive heart failure Emphysema of lung Mediastinal lymphadenopathy Surgical History Surgical History S/P bilateral BKA (below knee amputation) Family History Family History Grandparent Diabetes mellitus Father Hypertension Social History Social History Years smoked: 45 Smoking status: Former smoker Alcohol intake: current Drinks per week: 3 Substance use: never Substance use type: does not use Has the Lack of Transportation Kept You From Medical Appointments or From Getting Medications?: No Within the Past 12 Months, Were You Worried Whether Your Food Would Run Out Before You Got Money to Buy More?: Never True What is Your Housing Situation Today?: I Have Housing Are You Worried That in the Next 2 Months, You May Not Have Your Own Housing to Live In?: No Do You Have Trouble Paying Your Heating Or Electricity Bill?: No Do You Have Trouble Paying For Medicines?: No Are You Currently Unemployed and Looking for Work?: No Highest Level of Education Completed: High School Diploma/GED Do You Have Trouble With Childcare or the Care of a Family Member?: No Spiritual care concerns: No Course Vital Signs Vital signs: Vital Signs Temperature 98.1 F 01/21/22 14:18 Pulse Rate 56 L 01/21/22 14:18 Respiratory Rate 17 01/21/22 14:18 Blood Pressure 137/49 L 01/21/22 14:18 Pulse Oximetry 91 01/21/22 14:18 Oxygen Delivery Nasal Cannula 01/21/22 14:18 Oxygen Flow Rate 3 01/21/22 14:18 Temperature 97.0 F L 01/21/22 21:52 Pulse Rate 70 01/21/22 21:52 Respiratory Rate 16 01/21/22 21:52 Blood Pressure 120/67 01/21/22 21:52 Pulse Oximetry 94 01/21/22 23:09 Oxygen Delivery Nasal Cannula 01/21/22 23:09 Oxygen Flow Rate 2 01/21/22 23:09 Medical Decision Making Vital Signs Vital Signs: Vital Signs Temperature 98.1 F 01/21/22 14:18 Pulse Rate 56 L 01/21/22 14:18 Respiratory Rate 17 01/21/22 14:18 Blood Pressure 137/49 L 01/21/22 14:18 Pulse Oximetry 91 01/21/22 14:18 Oxygen Delivery Nasal Cannula 01/21/22 14:18 Oxygen Flow Rate 3 01/21/22 14:18 Temperature 97.0 F L 01/21/22 21:52 Pulse Rate 70 01/21/22 21:52 Respiratory Rate 16 01/21/22 21:52 Blood Pressure 120/67 01/21/22 21:52 Pulse Oximetry 94 01/21/22 23:09 Oxygen Delivery Nasal Cannula 01/21/22 23:09 Oxygen Flow Rate 2 01/21/22 23:09 Lab Data Result diagrams: 01/21/22 15:32 01/21/22 15:32 Labs: Lab Results 01/21/22 01/21/22 01/21/22 Range/Units 15:32 15:32 15:32 WBC 11.9 H (4.5-10.0) K/mm3 RBC 4.53 (4.2-5.4) M/mm3 Hgb 15.3 H (12.0-15.0) g/dL Hct 45.7 (37.0-47.0) % MCV 100.9 H (80-100) fl MCH 33.8 (26-34) pg MCHC 33.5 (32-36) g/dl RDW 13.3 (11.5-14.5) %
[2022-01-22] VITALS (14 sets, daily range): BP systolic 98–120; BP diastolic 50–58; PULSE 51–79; RESP 14–16; TEMP 36.1–36.6; O2SAT 92–93
[2022-01-22] MEDS: APIXABAN 5 MG TABLET PO ×3 (00:24→20:23)
[2022-01-22] MEDS: GABAPENTIN 400 MG CAPSULE 800 MG PO ×3 (00:24→20:24)
[2022-01-22 05:20] LABS: Hematocrit 43.4 % (37.0-47.0); Hemoglobin 14.3 g/dL (12.0-15.0); Mean Corpuscular HGB Conc 32.9 g/dl (32-36); Mean Corpuscular Hemoglobin 33.3 pg (26-34); Mean Corpuscular Volume 100.9 fl (80-100); Mean Platelet Volume 9.5 fl (7.4-10.4); Platelet Count Result 362 k/mm3 (150-375); Red Cell Distribution Width 13.3 % (11.5-14.5); White Blood Count 10.2 K/mm3 (4.5-10.0)
[2022-01-22 05:40] LABS: Anion Gap 4 mmol/L (8-16); Blood Urea Nitrogen 10 mg/dL (7-17); CRP 4.3 mg/dL (<1.0); Calcium 8.4 mg/dL (8.4-10.2); Carbon Dioxide 36 mmol/L (22-30); Chloride 96 mmol/L (98-107); Estimated CRCL calculation 52 ml/min; Estimated Glomerular Filt Rate > 60; Glucose 102 mg/dL (65-110); Magnesium 2.2 mg/dL (1.6-2.3); Potassium 5.6 mmol/L (3.4-5.0); Sodium 136 mmol/L (137-145)
[2022-01-22 06:40] LABS: Erythrocyte Sedimentation Rate 14 mm/hr (0-20)
[2022-01-22] MEDS: UMECLIDINIUM/VILANTEROL 62.5-25 MCG ELLIPTA 1 PUFF INHALATION (07:39)
[2022-01-22] MEDS: FUROSEMIDE 20 MG TABLET PO (08:52)
[2022-01-22] MEDS: METOPROLOL TARTRATE 12.5 MG TABLET PO (08:52)
[2022-01-22] MEDS: ATORVASTATIN 20 MG TABLET PO (08:52)
--- NOTE | 2022-01-22 10:59 | PM.IMPN ---
Progress Note: A&P Assessment and Plan (1) Pericardial effusion: Code(s): I31.39 - Other pericardial effusion (noninflammatory) Status: Acute Assessment and Plan: cardio c/s pending, unsure of etiology (2) Heart failure with preserved ejection fraction: Code(s): I50.30 - Unspecified diastolic (congestive) heart failure Status: Chronic Assessment and Plan: appears euvolemic, hold off on IV diuretics for now per cardio recs, cont po diuretics (3) Chronic respiratory failure with hypoxia: Code(s): J96.11 - Chronic respiratory failure with hypoxia Status: Chronic Assessment and Plan: stable (4) Chronic obstructive pulmonary disease: Code(s): J44.9 - Chronic obstructive pulmonary disease, unspecified Status: Chronic Assessment and Plan: stable, monitor, cont home meds (5) Chronic pain syndrome: Code(s): G89.4 - Chronic pain syndrome Status: Chronic Assessment and Plan: stable, cont home meds Plan DVT prophylaxis with SCDs GI prophylaxis not indicated Code status full code Subjective Date/time seen: 01/22/22 10:59 Interval history: No overnight events noted. No chest pain or shortness of breath. No nausea, vomiting or diarrhea. No fevers or chills. some chest tightness with deep breaths. Review of Systems Review of Systems: 12 point review of systems was assessed and was negative except as noted in the HPI Exam Narrative: General: No acute distress, alert and oriented per baseline HEENT: Atraumatic, normocephalic, mucous membranes moist CV: Regular rate and rhythm, S1, S2 Lungs: Clear to auscultation bilaterally, no rales or crackles noted, no wheezes, good air entry Abdomen: Soft, nontender, nondistended Extremities: Normal to inspection Skin: No rashes noted, no lesions or wounds seen Psych: Euthymic, normal affect Objective Data Vital Signs Vital Signs: Vital Signs - 24 hr 01/21/22 14:18 01/21/22 18:52 01/21/22 21:52 Temperature 98.1 F 97.0 F L Pulse Rate 56 L 58 L 70 Respiratory Rate 17 20 16 Blood Pressure 137/49 L 102/67 120/67 Pulse Oximetry 91 98 94 Oxygen Delivery Nasal Cannula Oxygen Flow Rate 3 01/21/22 20:00 01/21/22 23:09 01/22/22 00:00 Temperature Pulse Rate 57 L 57 L Respiratory Rate Blood Pressure Pulse Oximetry 94 Oxygen Delivery Nasal Cannula Oxygen Flow Rate 2 01/22/22 00:25 01/22/22 04:00 01/22/22 06:00 Temperature Pulse Rate 57 L 53 L 52 L Respiratory Rate Blood Pressure Pulse Oximetry Oxygen Delivery Oxygen Flow Rate 01/22/22 06:00 01/22/22 08:52 01/22/22 08:30 Temperature 97.5 F L Pulse Rate 79 63 63 Respiratory Rate 16 16 Blood Pressure 120/58 L Pulse Oximetry 93 93 Oxygen Delivery Nasal Cannula Oxygen Flow Rate 2 Intake/Output Intake/Output: Intake & Output 01/19/22 01/20/22 01/21/22 01/22/22 23:59 23:59 23:59 23:59 Intake Total 400 Output Total 800 Balance -400 Meds/Results Medications: Active Medications Generic Name Dose Route Start Last Admin Trade Name Freq PRN Reason Stop Dose Admin Acetaminophen 650 mg 01/21/22 18:59 Acetaminophen 325 Mg Tablet PO Q4H PRN Mild Pain (1-3) or Fever Apixaban 5 mg 01/22/22 00:10 01/22/22 08:52 Apixaban 5 Mg Tablet PO 5 mg Q12HR CLIFF Administration Atorvastatin Calcium 20 mg 01/22/22 09:00 01/22/22 08:52 Atorvastatin 20 Mg Tablet PO 20 mg DAILY CLIFF Administration Furosemide 20 mg 01/22/22 09:00 01/22/22 08:52 Furosemide 20 Mg Tablet PO 20 mg DAILY CLIFF Administration Gabapentin 800 mg 01/22/22 00:10 01/22/22 08:52 Gabapentin 400 Mg Capsule PO 800 mg Q12HR CLIFF Administration Home Med 1 each 01/22/22 00:15 01/22/22 08:53 Oxycodone Myristate [Xtampza Er] 27 Mg Cap,Sprinkl,Er12hr PO 02/21/22 00:14 1 each Q12HR CLIFF Administration Metoprolol Tartrate 12
--- NOTE | 2022-01-22 11:19 | PM.CNCAR ---
Assessment and Plan Assessment and plan (1) Pericardial effusion: Code(s): I31.39 - Other pericardial effusion (noninflammatory) Status: Acute Assessment and Plan: I ordered an echocardiogram, which will be done tomorrow AM. Patient does not have any evidence of clinical tamponade at this time. (2) Pulmonary embolism: Code(s): I26.99 - Other pulmonary embolism without acute cor pulmonale Status: Acute Assessment and Plan: Continue Eliquis. (3) Heart failure with preserved ejection fraction: Code(s): I50.30 - Unspecified diastolic (congestive) heart failure Status: Chronic Assessment and Plan: Patient appears to be compensated at this time. Would continue home dose of diuretic. (4) Chronic respiratory failure with hypoxia: Code(s): J96.11 - Chronic respiratory failure with hypoxia Status: Chronic Assessment and Plan: On home O2 (5) Atrial fibrillation: Code(s): I48.91 - Unspecified atrial fibrillation Status: Acute Assessment and Plan: Paroxysmal. Continue beta-nimo. Continue Eliquis. History of Present Illness History of Present Illness Consult date/time: 01/22/22 11:19 Requesting physician: Yovanny Lester MD Consult reason: shortness of breath Reason For Visit: pericardial effusion, shortness of breath Narrative: This is a patient who is well known to me and sees me in clinic. When I saw her in clinic last month she was doing well, and was preparing for a trip to [facility]. We had weaned her off the Amio for her atrial fibrillation. Patient states she returned from [facility] yesterday. Patient reports pleuritic chest pain that occurs with deep breathing. Is not positional. Doesn't have shortness of breath unless she tries to take a deep breath. Her [id number] tested positive for COVID in [place], however, patient COVID-negative here. CT scan done in ED showed increasing size of pericardial effusion, now moderate. Small bilateral pleural effusions. This was not a PE study. EKG shows sinus rhythm, nonspecific STTW changes. Review of Systems Review of Systems: 12-point ROS obtained. Negative, unless stated in HPI. COUNTS INCLUDE 234 BEDS AT THE [facility] Past Medical History Medical History Anxiety disorder, unspecified Atrial fibrillation Chronic obstructive pulmonary disease Chronic pain syndrome Chronic respiratory failure with hypoxia Coronary artery disease Emphysema of lung Heart failure with preserved ejection fraction Pulmonary embolism Surgical History Surgical History History of below-knee amputation of both lower extremities History of tonsillectomy Family History Family History Grandparent Diabetes mellitus Father Hypertension Social History Social History Social History: Code status: Full code. Years smoked: 45 Smoking status: Former smoker Additional smoking assessment comments: She has not had any cigarettes since mid November 2021. Alcohol intake: current Drinks per week: 3 Substance use: never Substance use type: does not use Has the Lack of Transportation Kept You From Medical Appointments or From Getting Medications?: No Within the Past 12 Months, Were You Worried Whether Your Food Would Run Out Before You Got Money to Buy More?: Never True What is Your Housing Situation Today?: I Have Housing Are You Worried That in the Next 2 Months, You May Not Have Your Own Housing to Live In?: No Do You Have Trouble Paying Your Heating Or Electricity Bill?: No Do You Have Trouble Paying For Medicines?: No Are You Currently Unemployed and Looking for Work?: No Highest Level of Education Completed: High School Diploma/GED Do You Have Trouble With Childcare or the Care of a Family Member?: No Spir
[2022-01-22] MEDS: ACETAMINOPHEN 325 MG TABLET 650 MG PO (12:57)
[2022-01-22] MEDS: TEMAZEPAM (*CRX) 15 MG CAPSULE PO (20:23)
[2022-01-22] MEDS: SENNA/DOCUSATE SODIUM TABLET 1 TAB PO (20:23)
[2022-01-23] VITALS (19 sets, daily range): BP systolic 106–118; BP diastolic 52–62; PULSE 50–85; RESP 16–22; TEMP 36.3–37.7; O2SAT 87–93
--- NOTE | 2022-01-23 | ECHO_ITS ---
Patient Info Name: Divya Torres Age: 61 years : 1960 Gender: Female Ht: 62 in Wt: 100 lbs BSA: 1.40 m2 HR: 63 bpm BP: 106 / 53 mmHg Heart Rhythm: Sinus Rhythm Exam Date: 01/23/2022 11:25 AM Exam Location: [facility] Pulmonary Patient Status: Inpatient Admit Date: 01/22/2022 Staff Ordering Physician: Loretta Terry MD (carmen/julito) Electrophysiologist: Garth Peralta, LIZBETHCS, RT Attending Provider: Carlton Mendoza MD Referring Physician: Harrison GRANADO; Exam Type: CA echo doppler color flow Study Info Indications I50.9 - Heart failure, unspecified Complete two-dimensional, color flow and Doppler transthoracic echocardiogram is performed. Summary 1. Complete two-dimensional, color flow and Doppler transthoracic echocardiogram is performed. 2. Left ventricular systolic function is normal, estimated at 60-65%. 3. The left ventricular diastolic function is grade I diastolic dysfunction. 4. Flattening of the septum in diastole and systole consistent with right ventricular volume and pressure overload. 5. Right ventricular chamber dimension is moderately enlarged. 6. Right ventricular systolic function is normal. 7. Left atrial chamber dimension is mildly enlarged. 8. Right atrial chamber dimension is mildly enlarged. 9. There is moderate tricuspid valve regurgitation. 10. There is a moderate pericardial effusion. No echocardiographic evidence of tamponade. 11. Left pleural effusion seen. Left Ventricle Left ventricular chamber dimension is normal. Left ventricular systolic function is normal, estimated at 60-65%. There is no increased left ventricular wall thickness. The left ventricular diastolic function is grade I diastolic dysfunction. Right Ventricle Flattening of the septum in diastole and systole consistent with right ventricular volume and pressure overload. Right ventricular chamber dimension is moderately enlarged. Right ventricular systolic function is normal. Left Atria Left atrial chamber dimension is mildly enlarged. Right Atria Right atrial chamber dimension is mildly enlarged. Aortic Valve The aortic valve is not well visualized. There is no aortic valve stenosis. There is no aortic valve regurgitation. There is mild aortic valve calcification. Pulmonic Valve The pulmonic valve is not well visualized. Mitral Valve The mitral valve has normal leaflets. There is no mitral valve stenosis. There is no mitral valve regurgitation. Tricuspid Valve The tricuspid valve leaflets are not well visualized. There is no significant tricuspid valve stenosis. There is moderate tricuspid valve regurgitation. Pericardium/Pleural There is a moderate pericardial effusion. No echocardiographic evidence of tamponade. Left pleural effusion seen. Inferior Vena Cava Normal inferior vena cava with <50% collapse upon inspiration consistent with elevated right atrial pressure, 8 mmHg. Aorta The aortic root size at the sinus of Valsalva is normal. Left Ventricular Outflow Tract Name Value Normal LVOT 2D LVOT Diameter 1.9 cm LVOT Doppler LVOT Peak Gradient 4 mmHg
[2022-01-23 06:48] LABS: Basophils Absolute Auto 0.1 K/mm3 (0.0-0.1); Basophils Percent Auto 0.8 % (0.2-1.2); Eosinophils Absolute Auto 0.2 K/mm3 (0-0.3); Eosinophils Percent Auto 1.3 % (0-4.4); Hematocrit 47.9 % (37.0-47.0); Hemoglobin 15.6 g/dL (12.0-15.0); Immature Granulocyte Absolute 0.06 K/mm3 (0.00-0.031); Immature Granulocyte Percent A 0.5 % (0-0.5); Lymphocytes Absolute Auto 1.64 K/mm3 (0.9-3.2); Lymphocytes Percent Auto 13.8 % (18.3-44.2); Mean Corpuscular HGB Conc 32.6 g/dl (32-36); Mean Corpuscular Hemoglobin 34.1 pg (26-34); Mean Corpuscular Volume 104.8 fl (80-100); Mean Platelet Volume 10.1 fl (7.4-10.4); Monocytes Absolute Auto 1.3 K/mm3 (0.1-0.6); Monocytes Percent Auto 11.2 % (2.6-8.5); Neutrophils Absolute Auto 8.6 K/mm3 (1.3-6.7); Neutrophils Percent Auto 72.4 % (45.5-73.1); Platelet Count Result 387 k/mm3 (150-375); Red Blood Count 4.57 M/mm3 (4.2-5.4); Red Cell Distribution Width 13.8 % (11.5-14.5); White Blood Count 11.9 K/mm3 (4.5-10.0)
[2022-01-23 06:52] LABS: Alanine Aminotransferase 15 U/L (6-35); Albumin Level 3.7 g/dL (3.5-5.1); Alkaline Phosphatase 110 U/L (38-126); Anion Gap 9 mmol/L (8-16); Aspartate Amino Transferase 20 U/L (14-36); Bilirubin,Total 0.6 mg/dL (0.2-1.3); Blood Urea Nitrogen 13 mg/dL (7-17); Calcium 8.2 mg/dL (8.4-10.2); Carbon Dioxide 33 mmol/L (22-30); Chloride 93 mmol/L (98-107); Estimated CRCL calculation 51 ml/min; Estimated Glomerular Filt Rate > 60; Glucose 87 mg/dL (65-110); Potassium 4.1 mmol/L (3.4-5.0); Sodium 135 mmol/L (137-145)
--- NOTE | 2022-01-23 08:15 | PC.NURSE ---
pt O2 sats are low, reported to MD and RT called, pt denies SOB and is not in acute distress, monitoring and increased O2 to 5 L
[2022-01-23] MEDS: FUROSEMIDE INJ 40 MG/4 ML VIAL (08:23)
[2022-01-23] MEDS: GABAPENTIN 400 MG CAPSULE 800 MG PO ×2 (09:10→21:27)
[2022-01-23] MEDS: ATORVASTATIN 20 MG TABLET PO (09:10)
[2022-01-23] MEDS: APIXABAN 5 MG TABLET PO ×2 (09:10→21:27)
[2022-01-23] MEDS: METOPROLOL TARTRATE 12.5 MG TABLET PO ×2 (09:14→21:26)
[2022-01-23] MEDS: ACETAMINOPHEN 325 MG TABLET 650 MG PO (09:50)
[2022-01-23] MEDS: UMECLIDINIUM/VILANTEROL 62.5-25 MCG ELLIPTA 1 PUFF INHALATION (09:52)
--- NOTE | 2022-01-23 10:30 | PM.IMPN ---
Progress Note: A&P Assessment and Plan (1) Pericardial effusion: Code(s): I31.39 - Other pericardial effusion (noninflammatory) Status: Acute Assessment and Plan: Continue diuresis. Further management per Cardiology. Echo pending (2) Heart failure with preserved ejection fraction: Code(s): I50.30 - Unspecified diastolic (congestive) heart failure Status: Chronic Assessment and Plan: Continue IV diuresis. Echo pending. Cardiology on board (3) Chronic respiratory failure with hypoxia: Code(s): J96.11 - Chronic respiratory failure with hypoxia Status: Chronic Assessment and Plan: From COPD. Start on DuoNeb. Incentive spirometer. Taper oxygen. Goal oxygen saturation 86% and above. Avoid high O2 to prevent decreasing respiratory drive (4) Chronic obstructive pulmonary disease: Code(s): J44.9 - Chronic obstructive pulmonary disease, unspecified Status: Chronic Assessment and Plan: Continue home medications. Add DuoNebs q.i.d. and p.r.n.. (5) Chronic pain syndrome: Code(s): G89.4 - Chronic pain syndrome Status: Chronic Subjective Date/time seen: 01/23/22 10:30 Interval history: No overnight events noted. This morning patient became more short of breath and had to be put on 10 L high-flow nasal cannula Exam Narrative: General: No acute distress, alert and oriented per baseline HEENT: Atraumatic, normocephalic, mucous membranes moist CV: Regular rate and rhythm, S1, S2 Lungs: No wheezing, decreased breath sounds bilaterally Abdomen: Soft, nontender, nondistended Extremities: Normal to inspection Skin: No rashes noted, no lesions or wounds seen Psych: Euthymic, normal affect Objective Data Vital Signs Vital Signs: Vital Signs - 24 hr 01/22/22 14:00 01/22/22 12:00 01/22/22 16:00 Temperature 98 F Pulse Rate 54 L 57 L 51 L Respiratory Rate 14 Blood Pressure 98/50 L Pulse Oximetry 92 Oxygen Delivery Oxygen Flow Rate 01/22/22 20:24 01/22/22 20:00 01/22/22 20:00 Temperature Pulse Rate 57 L 53 L Respiratory Rate Blood Pressure Pulse Oximetry 92 Oxygen Delivery Nasal Cannula Oxygen Flow Rate 2 01/22/22 21:44 01/23/22 00:00 01/23/22 04:00 Temperature 97.0 F L Pulse Rate 53 L 53 L 71 Respiratory Rate 16 Blood Pressure 106/53 L Pulse Oximetry 93 Oxygen Delivery Oxygen Flow Rate 01/23/22 06:00 01/23/22 09:14 01/23/22 09:56 Temperature 99.8 F H Pulse Rate 85 85 Respiratory Rate 22 H Blood Pressure 118/59 L Pulse Oximetry 87 L 91 Oxygen Delivery High Flow Nasal Cannula Oxygen Flow Rate 8 Intake/Output Intake/Output: Intake & Output 01/20/22 01/21/22 01/22/22 01/23/22 23:59 23:59 23:59 23:59 Intake Total 1350 820 Output Total 800 800 Balance 550 20 Meds/Results Medications: Active Medications Generic Name Dose Route Start Last Admin Trade Name Freq PRN Reason Stop Dose Admin Acetaminophen 650 mg 01/22/22 17:30 01/23/22 09:50 Acetaminophen 325 Mg Tablet PO 650 mg Q6H PRN Administration Mild Pain (1-3) or Fever Albuterol 2.5 mg 01/23/22 12:00 Albuterol Sulfate Neb 2.5 Mg/3 Ml Inh INHALATION Q4HRT CLIFF Apixaban 5 mg 01/22/22 00:10 01/23/22 09:10 Apixaban 5 Mg Tablet PO 5 mg Q12HR CLIFF Administration Atorvastatin Calcium 20 mg 01/22/22 09:00 01/23/22 09:10 Atorvastatin 20 Mg Tablet PO 20 mg DAILY CLIFF Administration Furosemide 20 mg 01/22/22 09:00 01/23/22 08:56 Furosemide 20 Mg Tablet PO Not Given DAILY CLIFF Gabapentin 800 mg 01/22/22 00:10 01/23/22 09:10 Gabapentin 400 Mg Capsule PO 800 mg Q12HR CLIFF Administration Home Med 1 each 01/22/22 00:15 01/23/22 09:12 Oxycodone Myristate [Xtampza Er] 27 Mg Cap,Sprinkl,Er12hr PO 02/21/22 00:14 1 each Q12HR CLIFF Administration Ipratropium [place] 0.5 mg 01/23/22 12:00 Ipratropium B
--- NOTE | 2022-01-23 11:13 | PM.PNCARD ---
Progress Note: A&P Assessment and Plan (1) Pericardial effusion: Code(s): I31.39 - Other pericardial effusion (noninflammatory) Status: Acute Assessment and Plan: TTE is pending. Patient has no evidence of clinical tamponade. History not suggestive of pericarditis either. Further recommendations pending results of echo. (2) Heart failure with preserved ejection fraction: Code(s): I50.30 - Unspecified diastolic (congestive) heart failure Status: Chronic (3) Chronic respiratory failure with hypoxia: Code(s): J96.11 - Chronic respiratory failure with hypoxia Status: Chronic Assessment and Plan: Patient with increased oxygen requirements this AM. CXR with worsening effusions Agree with intermittent IV diuresis. Time Spent With Patient Time with patient: 15 - 25 minutes Subjective Date/time seen: 01/23/22 11:13 Interval history: Reason for visit: Pericardial effusion This morning, patient was noted to be hypoxic. Was put on HFNC. Given IV Lasix. CXR this AM shows mild pulmonary edema, small right and moderate sized left pleural effusions with worsening on the left. Patient reports she feels okay this morning. Is not feeling short of breath. Has no chest pain. Still reports a headache. Review of Systems Review of Systems: 8-point ROS obtained. Negative, unless stated in HPI. Exam Const: General: comfortable and no acute distress HENMT: Mouth: Yes moist mucous membranes Eyes: General: appearance normal, both eyes and all related structures Neck: Neck: supple and no JVD Resp: Effort & Inspection: normal respiratory effort Auscultation: diminished lung sounds Other: On supplemental oxygen Cardio: Rate: regular rate Rhythm: regular rhythm Heart sounds: no murmurs GI: GI Palp: Yes Soft to palpation and No Tenderness to palpation present (GI) Skin: General skin exam: normal color Neuro: Speech: normal speech Extrem: General: no edema Other: Bilateral AKA Psych: Mental Status: mental status grossly normal Objective Data Vital Signs Vital Signs: Vital Signs - 24 hr 01/22/22 14:00 01/22/22 12:00 01/22/22 16:00 Temperature 36.6 C Pulse Rate 54 L 57 L 51 L Respiratory Rate 14 Blood Pressure 98/50 L Pulse Oximetry 92 Oxygen Delivery Oxygen Flow Rate 01/22/22 20:24 01/22/22 20:00 01/22/22 20:00 Temperature Pulse Rate 57 L 53 L Respiratory Rate Blood Pressure Pulse Oximetry 92 Oxygen Delivery Nasal Cannula Oxygen Flow Rate 2 01/22/22 21:44 01/23/22 00:00 01/23/22 04:00 Temperature 36.1 C L Pulse Rate 53 L 53 L 71 Respiratory Rate 16 Blood Pressure 106/53 L Pulse Oximetry 93 Oxygen Delivery Oxygen Flow Rate 01/23/22 06:00 01/23/22 09:14 01/23/22 09:56 Temperature 37.7 C H Pulse Rate 85 85 Respiratory Rate 22 H Blood Pressure 118/59 L Pulse Oximetry 87 L 91 Oxygen Delivery High Flow Nasal Cannula Oxygen Flow Rate 8 Intake/Output Intake/Output: Intake & Output 01/20/22 01/21/22 01/22/22 01/23/22 23:59 23:59 23:59 23:59 Intake Total 1350 820 Output Total 800 800 Balance 550 20 Meds/Results Medications: Active Medications Generic Name Dose Route Start Last Admin Trade Name Freq PRN Reason Stop Dose Admin Acetaminophen 650 mg 01/22/22 17:30 01/23/22 09:50 Acetaminophen 325 Mg Tablet PO 650 mg Q6H PRN Administration Mild Pain (1-3) or Fever Albuterol 2.5 mg 01/23/22 12:00 Albuterol Sulfate Neb 2.5 Mg/3 Ml Inh INHALATION Q4HRT CLIFF Apixaban 5 mg 01/22/22 00:10 01/23/22 09:10 Apixaban 5 Mg Tablet PO 5 mg Q12HR CLIFF Administration Atorvastatin Calcium 20 mg 01/22/22 09:00 01/23/22 09:10 Atorvastatin 20 Mg Tablet PO 20 mg DAILY CLIFF Administration Furosemide 20 mg 01/22/22 09:00 01/23/22 08:56 Furosemide 20 Mg Tablet PO Not Given DAILY CLIFF Gabapentin 800 mg 01/22/22 00:10 01/23
--- NOTE | 2022-01-23 11:20 | PC.NURSE ---
0750 called to room by OYSTER SORTER for low O2 sat, pt sitting up in bed talking and comfortable, no acute distress noted, O2 sat 82-87%, O2 increased to 5L per NC, call placed to MD and RT at 0800 RT placed pt on high flow NC for increased oxygen needs 0823 lasix administered per MD orders 0850 call to MD to report sats remain in mid 80's with O2 up to 7L per high flow cannula, continue to monitor and keep sats 88-91 0900 MD to bedside to assess pt, new orders placed, continuous pulse ox added to telemetry monitoring pt has rested comfortably throughout morning, able to get to [facility] without difficulty, able to eat breakfast without trouble and also able to visit with son who was visiting all while adjustments have been being made to oxygen levels
[2022-01-23] MEDS: IPRATROPIUM BR 0.02% INH SOLN 0.5 MG/2.5 ML VIAL INHALATION ×2 (17:24→19:59)
[2022-01-23] MEDS: ALBUTEROL SULFATE NEB 2.5 MG/3 ML INH INHALATION ×2 (17:24→19:59)
[2022-01-23] MEDS: SENNA/DOCUSATE SODIUM TABLET 1 TAB PO (21:27)
[2022-01-24] VITALS (27 sets, daily range): BP systolic 110–139; BP diastolic 51–64; PULSE 59–93; RESP 12–23; TEMP 36.3–37.2; O2SAT 86–99
--- NOTE | 2022-01-24 00:47 | PCRCNOTE ---
pt asked to not be woken up if asleep during 0000 rounds. pt was asleep for 0000 rounds so RT did not wake pt. RN notified.
--- NOTE | 2022-01-24 01:38 | PC.NURSE ---
D Talia notified pt c/o numbness to right upper lip and general heightened anxiety. Provider is familiar w/ patient and has a hx of this specific symptom in the past. ABG ordered at this time, call provider w/ results.
[2022-01-24 01:57] LABS: Alveolar/Arterial O2 Gradient 313.2 mmHg; Fractional Inspired Oxygen 60 %; HCO3 ABG 32.5 mEq/l (22.0-26.0); Oxygen Content ABG 18.4 %vol (16.0-22.0); Oxygen Saturation ABG 87.9 % (95.0-100.0); Oxyhemoglobin 87.9 % THb (90.0-100.0); PCO2 ABG 54.3 mmHg (35.0-45.0); PO2 ABG 54.9 mmHg (80.0-100.0); PO2 FiO2 Ratio Arterial Blood 0.92 %; Site Drawn RIGHT RADIAL; Total Hemoglobin 14.9 g/dL (12.0-18.0); pH ABG 7.395 (7.350-7.450)
[2022-01-24 01:58] LABS: Device HIGH FLOW NASAL CANN; Modified Allen's Test Pass
--- NOTE | 2022-01-24 02:53 | P.PNCROSS_ITS ---
Event Note Event Note Event Note: Called that the patient's oxygen requirement had increased significantly. Revi ewed chest x-ray from earlier today showing some pulmonary edema and pleural effusions. ABG was ordered and reviewed with respiratory therapy. Patient appeared to have hypoxia with hypercapnia that was compensated with a normal pH. Patient likely has baseline hypercapnia due to longstanding COPD. BiPAP was initiated with settings of 10/5 and a repeat ABG in the morning. Would recommend rechecking a chest x-ray as well if patient's oxygen requirements do not improve, will also give a dose of Lasix and see if patient has any response to this.
--- NOTE | 2022-01-24 03:24 | PC.NURSE ---
Pt transferred to IMU 205-2 from room 243 by bed, home medications and all other medications delivered along with patient belongings. Report given to Callie FISHER prior to transfer.
[2022-01-24] MEDS: IPRATROPIUM BR 0.02% INH SOLN 0.5 MG/2.5 ML VIAL INHALATION ×5 (03:43→20:52)
[2022-01-24] MEDS: ALBUTEROL SULFATE NEB 2.5 MG/3 ML INH INHALATION ×5 (03:43→20:52)
--- NOTE | 2022-01-24 04:01 | PCRCNOTE ---
per RN: pt is finally asleep after being confused and awake for most of the night. RN will call if pt needs MDI.
--- NOTE | 2022-01-24 05:21 | PC.NURSE ---
This patient, Divya Torres, was received from room 243 on 01/24/22 at 0300. Patient oriented to unit policies and routines. Came to unit on 15 L of O2 and pending respiratory to apply BiPAP
[2022-01-24 05:34] LABS: Basophils Absolute Auto 0.1 K/mm3 (0.0-0.1); Basophils Percent Auto 0.8 % (0.2-1.2); Eosinophils Absolute Auto 0.1 K/mm3 (0-0.3); Eosinophils Percent Auto 1.2 % (0-4.4); Hematocrit 42.3 % (37.0-47.0); Hemoglobin 13.5 g/dL (12.0-15.0); Immature Granulocyte Absolute 0.04 K/mm3 (0.00-0.031); Immature Granulocyte Percent A 0.3 % (0-0.5); Lymphocytes Absolute Auto 1.61 K/mm3 (0.9-3.2); Lymphocytes Percent Auto 13.5 % (18.3-44.2); Mean Corpuscular HGB Conc 31.9 g/dl (32-36); Mean Corpuscular Hemoglobin 33.4 pg (26-34); Mean Corpuscular Volume 104.7 fl (80-100); Mean Platelet Volume 9.8 fl (7.4-10.4); Monocytes Absolute Auto 1.7 K/mm3 (0.1-0.6); Monocytes Percent Auto 13.9 % (2.6-8.5); Neutrophils Absolute Auto 8.4 K/mm3 (1.3-6.7); Neutrophils Percent Auto 70.3 % (45.5-73.1); Platelet Count Result 366 k/mm3 (150-375); Red Blood Count 4.04 M/mm3 (4.2-5.4); Red Cell Distribution Width 13.2 % (11.5-14.5); White Blood Count 11.9 K/mm3 (4.5-10.0)
[2022-01-24 05:46] LABS: Alanine Aminotransferase 13 U/L (6-35); Albumin Level 3.6 g/dL (3.5-5.1); Alkaline Phosphatase 88 U/L (38-126); Anion Gap 8 mmol/L (8-16); Aspartate Amino Transferase 17 U/L (14-36); Bilirubin,Total 0.7 mg/dL (0.2-1.3); Blood Urea Nitrogen 16 mg/dL (7-17); Calcium 8.2 mg/dL (8.4-10.2); Carbon Dioxide 32 mmol/L (22-30); Chloride 94 mmol/L (98-107); Estimated CRCL calculation 44 ml/min; Estimated Glomerular Filt Rate > 60; Glucose 104 mg/dL (65-110); Potassium 4.6 mmol/L (3.4-5.0); Sodium 134 mmol/L (137-145)
[2022-01-24 05:59] LABS: Alveolar/Arterial O2 Gradient 300.5 mmHg; Base Excess ABG 3.4 mEq/l (+/-2.0); Fractional Inspired Oxygen 60 %; HCO3 ABG 29.7 mEq/l (22.0-26.0); Modified Allen's Test Pass; Oxygen Content ABG 18.9 %vol (16.0-22.0); Oxygen Saturation ABG 93.5 % (95.0-100.0); Oxyhemoglobin 93.2 % THb (90.0-100.0); PO2 ABG 70.1 mmHg (80.0-100.0); PO2 FiO2 Ratio Arterial Blood 1.17 %; Site Drawn RIGHT RADIAL; Total Hemoglobin 14.4 g/dL (12.0-18.0); pH ABG 7.375 (7.350-7.450)
[2022-01-24 06:00] LABS: Device NON-INVASIVE VENT; Non-Invasive Expiratory Pressure 5 CMH2O; Non-Invasive Inspiratory Pressure 10 CMH2O; Non-Invasive Vent Rate 18 /MIN
--- NOTE | 2022-01-24 07:36 | PC.NURSE ---
0600 Pt presented with A fib on the monitor but upon assessment was Asymptomatic. EKG confirmed the presence of A fib. Contacted Dr. Wong and she stated to monitor.
[2022-01-24] MEDS: UMECLIDINIUM/VILANTEROL 62.5-25 MCG ELLIPTA 1 PUFF INHALATION (08:18)
[2022-01-24] MEDS: GABAPENTIN 400 MG CAPSULE 800 MG PO ×2 (09:06→20:37)
[2022-01-24] MEDS: APIXABAN 5 MG TABLET PO ×2 (09:06→20:37)
[2022-01-24] MEDS: METOPROLOL TARTRATE 12.5 MG TABLET PO ×2 (09:07→20:36)
[2022-01-24] MEDS: FUROSEMIDE 20 MG TABLET PO (09:07)
[2022-01-24] MEDS: ATORVASTATIN 20 MG TABLET PO (09:08)
--- NOTE | 2022-01-24 11:00 | PM.PNCARD ---
Progress Note: A&P Assessment and Plan (1) Pericardial effusion: Code(s): I31.39 - Other pericardial effusion (noninflammatory) Status: Acute Assessment and Plan: Patient has no evidence of clinical tamponade. History not suggestive of pericarditis either. TTE with preserved LVEF with moderate pericardial effusion with no evidence of echocardiographic tamponade. No intervention needed on pericardial effusion. Patient to follow up with us as an outpatient in Cardiology Clinic. (2) Heart failure with preserved ejection fraction: Code(s): I50.30 - Unspecified diastolic (congestive) heart failure Status: Chronic (3) Chronic respiratory failure with hypoxia: Code(s): J96.11 - Chronic respiratory failure with hypoxia Status: Chronic Assessment and Plan: Patient with increased oxygen requirements this AM, possibly from respiratory illness vs underlying COPD. Patient does not appear to be in overt heart failure. (4) Atrial fibrillation: Code(s): I48.91 - Unspecified atrial fibrillation Status: Acute Assessment and Plan: Paroxysmal. Currently in sinus. Continue Metoprolol and Eliquis. Time Spent With Patient Time with patient: 15 - 25 minutes Subjective Date/time seen: 01/24/22 11:00 Interval history: Reason for visit: Pericardial effusion. Overnight, patient noted to be hypoxic, ABG showed hypoxia with hypercapnia with normal pH. She was placed on BIPAP. Patient states that did not feel short of breath at this time. Echocardiogram done yesterday which shows normal LVEF, normal RVSF, moderate pericardial effusion without echocardiographic evidence of tamponade. Patient does not have evidence of clinical tamponade either. Review of Systems Review of Systems: 8-point ROS obtained. Negative, unless stated in HPI. Exam Const: General: comfortable and no acute distress HENMT: Mouth: Yes moist mucous membranes Eyes: General: appearance normal, both eyes and all related structures Neck: Neck: supple and no JVD Resp: Effort & Inspection: normal respiratory effort Auscultation: diminished lung sounds Other: On supplemental oxygen Cardio: Rate: regular rate Rhythm: regular rhythm Heart sounds: no murmurs GI: GI Palp: Yes Soft to palpation and No Tenderness to palpation present (GI) Skin: General skin exam: normal color Neuro: Speech: normal speech Extrem: General: no edema Other: Bilateral AKA Psych: Mental Status: mental status grossly normal Objective Data Vital Signs Vital Signs: Vital Signs - 24 hr 01/23/22 14:00 01/23/22 17:25 01/23/22 17:35 Temperature 36.3 C L Pulse Rate 56 L 84 84 Respiratory Rate 20 18 16 Blood Pressure 106/62 Pulse Oximetry 91 Oxygen Delivery Oxygen Flow Rate Fraction of Inspired Oxygen 01/23/22 12:00 01/23/22 16:00 01/23/22 20:03 Temperature Pulse Rate 65 50 L 66 Respiratory Rate 16 Blood Pressure Pulse Oximetry Oxygen Delivery Oxygen Flow Rate Fraction of Inspired Oxygen 01/23/22 20:04 01/23/22 20:15 01/23/22 21:26 Temperature Pulse Rate 72 71 Respiratory Rate 16 Blood Pressure Pulse Oximetry 92 Oxygen Delivery High Flow Nasal Cannula Oxygen Flow Rate 7 Fraction of Inspired Oxygen 01/23/22 22:57 01/23/22 21:27 01/23/22 20:00 Temperature 36.5 C Pulse Rate 77 65 Respiratory Rate 16 Blood Pressure 116/52 L Pulse Oximetry 93 90 Oxygen Delivery High Flow Nasal Cannula Oxygen Flow Rate 8 Fraction of Inspired Oxygen 01/24/22 00:00 01/24/22 03:18 01/24/22 03:43 Temperature 37.2 C Pulse Rate 59 L 60 59 L Respiratory Rate 20 23 H Blood Pressure 123/60 Pulse Oximetry 91 Oxygen Delivery Oxygen Flow Rate Fraction of Inspired Oxygen 01/24/22 03:43 01/24/22 03:43 01/24/22 03:56 Temperature Pulse Rate 59 L 62 Respiratory Rate 23 H 20 Blood Pressure Pulse Oximetry 99 99 Oxy
--- NOTE | 2022-01-24 15:59 | PM.IMPN ---
Progress Note: A&P Assessment and Plan (1) Pericardial effusion: Code(s): I31.39 - Other pericardial effusion (noninflammatory) Status: Acute Assessment and Plan: Continue diuresis with oral lasix. Further management per Cardiology. sp echo (2) Heart failure with preserved ejection fraction: Code(s): I50.30 - Unspecified diastolic (congestive) heart failure Status: Chronic Assessment and Plan: pt is on oral lasix. Cardiology on board. effusion is mild and stable no surgical intervention (3) Chronic respiratory failure with hypoxia: Code(s): J96.11 - Chronic respiratory failure with hypoxia Status: Chronic Assessment and Plan: From COPD. Start on DuoNeb. add iv steroids to regime looks like copd excerbation by a viral induced infection (4) Chronic obstructive pulmonary disease: Code(s): J44.9 - Chronic obstructive pulmonary disease, unspecified Status: Chronic Assessment and Plan: Continue home medications. Add DuoNebs q.i.d. and p.r.n.. (5) Chronic pain syndrome: Code(s): G89.4 - Chronic pain syndrome Status: Chronic Subjective Date/time seen: 01/24/22 15:59 Interval history: Pt admitted with pain on inspiration, interval history pt admitted to the hospital and was diagnosed with a pulmonary embolism comment attributed to recent travel,and she is now on apixaban. She has been doing okay since that time and states 100% compliance with her medications. Over the last couple of days she has had pleuritic pain in the left chest, CT of the chest with contrast from admission showed no evidence of pneumonia or pulmonary edema though did note a moderate sized pericardial effusion which was not present several weeks ago. She is being admitted in this setting for further workup in Cardiology consultation.? Cardiology feels her sob is not from her pericardial effusion which is mild and stable, possibly from COPD exacerbation and mild viral infection. COVID and flu are both negative on admission. pt currently needing 8 liters of oxygen Review of Systems Review of Systems: SOB pt is on 8 liters was on 10 liters yesterday usually on 2-3 liters Exam Narrative: General: sob at rest on oxygen CV: Regular rate and rhythm, S1, S2 Lungs: No wheezing, decreased breath sounds bilaterally Abdomen: Soft, nontender, nondistended Extremities: Normal to inspection Skin: No rashes noted, no lesions or wounds seen Psych: Euthymic, normal affect Objective Data Vital Signs Vital Signs: Vital Signs - 24 hr 01/23/22 17:25 01/23/22 17:35 01/23/22 16:00 Temperature Pulse Rate 84 84 50 L Respiratory Rate 18 16 Blood Pressure Pulse Oximetry Oxygen Delivery Oxygen Flow Rate Fraction of Inspired Oxygen 01/23/22 20:03 01/23/22 20:04 01/23/22 20:15 Temperature Pulse Rate 66 72 Respiratory Rate 16 16 Blood Pressure Pulse Oximetry 92 Oxygen Delivery High Flow Nasal Cannula Oxygen Flow Rate 7 Fraction of Inspired Oxygen 01/23/22 21:26 01/23/22 22:57 01/23/22 21:27 Temperature 36.5 C Pulse Rate 71 77 Respiratory Rate 16 Blood Pressure 116/52 L Pulse Oximetry 93 90 Oxygen Delivery High Flow Nasal Cannula Oxygen Flow Rate 8 Fraction of Inspired Oxygen 01/23/22 20:00 01/24/22 00:00 01/24/22 03:18 Temperature 37.2 C Pulse Rate 65 59 L 60 Respiratory Rate 20 Blood Pressure 123/60 Pulse Oximetry 91 Oxygen Delivery Oxygen Flow Rate Fraction of Inspired Oxygen 01/24/22 03:43 01/24/22 03:43 01/24/22 03:43 Temperature Pulse Rate 59 L 59 L Respiratory Rate 23 H 23 H Blood Pressure Pulse Oximetry 99 99 Oxygen Delivery BiPAP BiPAP Oxygen Flow Rate Fraction of Inspired Oxygen 60 01/24/22 03:56 01/24/22 04:00 01/24/22 04:00 Temperature Pulse Rate 62 63 Respiratory Rate 20 Blood Pressure Pulse Oximetry 96 Oxygen Delivery
[2022-01-24] MEDS: methylPREDNISolone SOD SUCC 40 MG VIAL IV PUSH ×2 (18:07→20:38)
[2022-01-24] MEDS: TEMAZEPAM (*CRX) 15 MG CAPSULE PO (20:36)
[2022-01-24] MEDS: SENNA/DOCUSATE SODIUM TABLET 1 TAB PO (20:37)
[2022-01-25] VITALS (36 sets, daily range): BP systolic 101–117; BP diastolic 45–62; PULSE 56–90; RESP 16–20; TEMP 35.8–36.7; O2SAT 89–96
[2022-01-25] MEDS: ALBUTEROL SULFATE NEB 2.5 MG/3 ML INH INHALATION ×6 (01:18→21:26)
[2022-01-25] MEDS: IPRATROPIUM BR 0.02% INH SOLN 0.5 MG/2.5 ML VIAL INHALATION ×6 (01:18→21:26)
[2022-01-25 05:02] LABS: Basophils Percent Auto 0.1 % (0.2-1.2); Hematocrit 46.4 % (37.0-47.0); Immature Granulocyte Absolute 0.04 K/mm3 (0.00-0.031); Immature Granulocyte Percent A 0.4 % (0-0.5); Lymphocytes Absolute Auto 0.47 K/mm3 (0.9-3.2); Lymphocytes Percent Auto 4.5 % (18.3-44.2); Mean Corpuscular HGB Conc 32.3 g/dl (32-36); Mean Corpuscular Hemoglobin 33.6 pg (26-34); Mean Corpuscular Volume 103.8 fl (80-100); Mean Platelet Volume 9.7 fl (7.4-10.4); Monocytes Absolute Auto 0.1 K/mm3 (0.1-0.6); Monocytes Percent Auto 1.3 % (2.6-8.5); Neutrophils Absolute Auto 9.7 K/mm3 (1.3-6.7); Neutrophils Percent Auto 93.7 % (45.5-73.1); Platelet Count Result 386 k/mm3 (150-375); Red Blood Count 4.47 M/mm3 (4.2-5.4); Red Cell Distribution Width 13.2 % (11.5-14.5); White Blood Count 10.4 K/mm3 (4.5-10.0)
[2022-01-25] MEDS: methylPREDNISolone SOD SUCC 40 MG VIAL IV PUSH ×3 (05:04→22:45)
[2022-01-25 05:15] LABS: Albumin Level 3.8 g/dL (3.5-5.1); Alkaline Phosphatase 94 U/L (38-126); Anion Gap 13 mmol/L (8-16); Aspartate Amino Transferase 22 U/L (14-36); Bilirubin,Total 0.6 mg/dL (0.2-1.3); Blood Urea Nitrogen 16 mg/dL (7-17); Calcium 8.2 mg/dL (8.4-10.2); Carbon Dioxide 32 mmol/L (22-30); Chloride 91 mmol/L (98-107); Estimated CRCL calculation 62 ml/min; Estimated Glomerular Filt Rate > 60; Glucose 212 mg/dL (65-110); Potassium 3.7 mmol/L (3.4-5.0); Sodium 136 mmol/L (137-145)
[2022-01-25 06:03] LABS: Alanine Aminotransferase 25 U/L (6-35)
[2022-01-25] MEDS: GABAPENTIN 400 MG CAPSULE 800 MG PO ×2 (08:33→20:20)
[2022-01-25] MEDS: UMECLIDINIUM/VILANTEROL 62.5-25 MCG ELLIPTA 1 PUFF INHALATION (08:33)
[2022-01-25] MEDS: METOPROLOL TARTRATE 12.5 MG TABLET PO ×2 (08:34→20:20)
[2022-01-25] MEDS: ATORVASTATIN 20 MG TABLET PO (08:34)
[2022-01-25] MEDS: FUROSEMIDE 20 MG TABLET PO (08:34)
[2022-01-25] MEDS: APIXABAN 5 MG TABLET PO ×2 (08:34→20:21)
--- NOTE | 2022-01-25 14:40 | PM.IMPN ---
Progress Note: A&P Assessment and Plan (1) Pericardial effusion: Code(s): I31.39 - Other pericardial effusion (noninflammatory) Status: Acute Assessment and Plan: Continue diuresis with oral lasix. Further management per Cardiology. sp echo 01/23/2022: EF 60-65% grade 1 diastolic dysfunction. Flattening of the septum in diastole and systole consistent with right ventricular volume and pressure overload moderate tricuspid valve regurgitation moderate pericardial effusion with no evidence of tamponade left pleural effusion Chest x-ray serial evaluation report reviewed showed worsening bilateral pleural effusion left more than right. Will start diuresis She also had pleuritic chest pain on left side possible pneumonia. Will start diuresis and had antibiotics along with current steroid treatment (2) Heart failure with preserved ejection fraction: Code(s): I50.30 - Unspecified diastolic (congestive) heart failure Status: Chronic Assessment and Plan: pt is on oral lasix. Cardiology on board. effusion is mild and stable no surgical intervention Heart failure with preserved ejection fraction (3) Chronic respiratory failure with hypoxia: Code(s): J96.11 - Chronic respiratory failure with hypoxia Status: Chronic Assessment and Plan: From COPD. Start on DuoNeb. Started on IV steroid for possible COPD exacerbation Chronic respiratory failure on 3 L nasal cannula related to COPD (4) Chronic obstructive pulmonary disease: Code(s): J44.9 - Chronic obstructive pulmonary disease, unspecified Status: Chronic Assessment and Plan: Continue home medications. Add DuoNebs q.i.d. and p.r.n.. (5) Chronic pain syndrome: Code(s): G89.4 - Chronic pain syndrome Status: Chronic Subjective Date/time seen: 01/25/22 14:40 Interval history: Pt admitted with pain on inspiration, interval history pt admitted to the hospital and was diagnosed with a pulmonary embolism comment attributed to recent travel,and she is now on apixaban. She has been doing okay since that time and states 100% compliance with her medications. Over the last couple of days she has had pleuritic pain in the left chest, CT of the chest with contrast from admission showed no evidence of pneumonia or pulmonary edema though did note a moderate sized pericardial effusion which was not present several weeks ago. She is being admitted in this setting for further workup in Cardiology consultation.? Cardiology feels her sob is not from her pericardial effusion which is mild and stable, possibly from COPD exacerbation and mild viral infection. COVID and flu are both negative on admission. pt currently needing 8 liters of oxygen 01/25/2022: She feels a bit better than yesterday. She used her BiPAP machine at night. She did not like it she states. She still on 8-9 L oxygen via nasal cannula. She states her lungs are open better. Reviewed x-ray findings with the patient she sees Dr. Campoverde Review of Systems Review of Systems: All systems reviewed & are unremarkable except as noted in HPI and below Exam Narrative: General: Alert and oriented x3 not in acute distress CV: Regular rate and rhythm, S1, S2 Lungs: No wheezing, decreased breath sounds bilaterally Abdomen: Soft, nontender, nondistended Extremities: Normal to inspection bilateral AKA Skin: No rashes noted, no lesions or wounds seen Psych: Euthymic, normal affect Objective Data Vital Signs Vital Signs: Vital Signs - 24 hr 01/24/22 15:22 01/24/22 15:32 01/24/22 16:00 Temperature 98 F Pulse Rate 77 79 79 Respiratory Rate 18 18 12 Blood Pressure 139/64 Pulse Oximetry 88 L Oxygen Delivery Oxygen Flow Rate Fraction of Inspired Oxygen 01/24/22 16:00 01/24/22 16:00 01/24/22 20:36 Temperature Pulse Rate 81 74 Respiratory Rate Blood Pressure Pulse Oximetry 91 Oxygen Delivery High Flow Therap
[2022-01-25] MEDS: FUROSEMIDE INJ 40 MG/4 ML VIAL IV PUSH (16:50)
[2022-01-25] MEDS: SENNA/DOCUSATE SODIUM TABLET 1 TAB PO (20:21)
[2022-01-25] MEDS: TEMAZEPAM (*CRX) 15 MG CAPSULE PO (20:21)
[2022-01-26] VITALS (28 sets, daily range): BP systolic 104–142; BP diastolic 48–79; PULSE 54–86; RESP 12–20; TEMP 36–36.8; O2SAT 90–95
[2022-01-26] MEDS: LORazepam INJ (*CRX) 2 MG/ML VIAL 0.5 MG IV PUSH ×2 (00:32→21:42)
[2022-01-26] MEDS: methylPREDNISolone SOD SUCC 40 MG VIAL IV PUSH (05:05)
[2022-01-26 05:14] LABS: Basophils Percent Auto 0.1 % (0.2-1.2); Eosinophils Percent Auto 0.1 % (0-4.4); Hematocrit 42.9 % (37.0-47.0); Hemoglobin 14.4 g/dL (12.0-15.0); Immature Granulocyte Absolute 0.14 K/mm3 (0.00-0.031); Immature Granulocyte Percent A 0.7 % (0-0.5); Lymphocytes Absolute Auto 0.53 K/mm3 (0.9-3.2); Lymphocytes Percent Auto 2.7 % (18.3-44.2); Mean Corpuscular HGB Conc 33.6 g/dl (32-36); Mean Corpuscular Hemoglobin 33.7 pg (26-34); Mean Corpuscular Volume 100.5 fl (80-100); Mean Platelet Volume 9.9 fl (7.4-10.4); Monocytes Absolute Auto 0.6 K/mm3 (0.1-0.6); Monocytes Percent Auto 3.3 % (2.6-8.5); Neutrophils Absolute Auto 18.3 K/mm3 (1.3-6.7); Neutrophils Percent Auto 93.1 % (45.5-73.1); Platelet Count Result 423 k/mm3 (150-375); Red Blood Count 4.27 M/mm3 (4.2-5.4); Red Cell Distribution Width 13.1 % (11.5-14.5); White Blood Count 19.6 K/mm3 (4.5-10.0)
[2022-01-26 05:36] LABS: Alanine Aminotransferase 16 U/L (6-35); Albumin Level 3.5 g/dL (3.5-5.1); Alkaline Phosphatase 91 U/L (38-126); Anion Gap 10 mmol/L (8-16); Aspartate Amino Transferase 23 U/L (14-36); Bilirubin,Total 0.4 mg/dL (0.2-1.3); Blood Urea Nitrogen 18 mg/dL (7-17); Calcium 8.4 mg/dL (8.4-10.2); Carbon Dioxide 33 mmol/L (22-30); Chloride 92 mmol/L (98-107); Estimated CRCL calculation 62 ml/min; Estimated Glomerular Filt Rate > 60; Glucose 184 mg/dL (65-110); Magnesium 2.1 mg/dL (1.6-2.3); Potassium 4.1 mmol/L (3.4-5.0); Sodium 135 mmol/L (137-145)
[2022-01-26 05:54] LABS: Anisocytosis 1+ (NORMAL); Platelet Estimate Increased (Adequate); Schistocytes 1+ (NORMAL)
[2022-01-26] MEDS: ATORVASTATIN 20 MG TABLET PO (08:10)
[2022-01-26] MEDS: METOPROLOL TARTRATE 12.5 MG TABLET PO ×2 (08:10→21:30)
[2022-01-26] MEDS: GABAPENTIN 400 MG CAPSULE 800 MG PO ×2 (08:10→21:31)
[2022-01-26] MEDS: APIXABAN 5 MG TABLET PO ×2 (08:10→21:31)
[2022-01-26] MEDS: FUROSEMIDE INJ 40 MG/4 ML VIAL IV PUSH (08:11)
[2022-01-26] MEDS: ALBUTEROL SULFATE NEB 2.5 MG/3 ML INH INHALATION ×4 (08:41→20:19)
[2022-01-26] MEDS: IPRATROPIUM BR 0.02% INH SOLN 0.5 MG/2.5 ML VIAL INHALATION ×4 (08:41→20:19)
[2022-01-26] MEDS: UMECLIDINIUM/VILANTEROL 62.5-25 MCG ELLIPTA 1 PUFF INHALATION (08:48)
--- NOTE | 2022-01-26 13:23 | PM.IMPN ---
Progress Note: A&P Assessment and Plan (1) Pericardial effusion: Code(s): I31.39 - Other pericardial effusion (noninflammatory) Status: Acute Assessment and Plan: Continue diuresis with oral lasix. Further management per Cardiology. sp echo 01/23/2022: EF 60-65% grade 1 diastolic dysfunction. Flattening of the septum in diastole and systole consistent with right ventricular volume and pressure overload moderate tricuspid valve regurgitation moderate pericardial effusion with no evidence of tamponade left pleural effusion Chest x-ray serial evaluation report reviewed showed worsening bilateral pleural effusion left more than right. Will start diuresis She also had pleuritic chest pain on left side possible pneumonia. Started on diuresis and had antibiotics along with current steroid treatment (2) Heart failure with preserved ejection fraction: Code(s): I50.30 - Unspecified diastolic (congestive) heart failure Status: Chronic Assessment and Plan: pt is on oral lasix. Cardiology on board. effusion is mild and stable no surgical intervention Heart failure with preserved ejection fraction Continue IV diuresis as ordered (3) Chronic respiratory failure with hypoxia: Code(s): J96.11 - Chronic respiratory failure with hypoxia Status: Chronic Assessment and Plan: From COPD. Start on DuoNeb. Started on IV steroid for possible COPD exacerbation Chronic respiratory failure on 3 L nasal cannula related to COPD Not wheezy: Will switch Solu-Medrol to oral steroid. Leukocytosis likely related to steroid treatment (4) Chronic obstructive pulmonary disease: Code(s): J44.9 - Chronic obstructive pulmonary disease, unspecified Status: Chronic Assessment and Plan: Continue home medications. Add DuoNebs q.i.d. and p.r.n.. (5) Chronic pain syndrome: Code(s): G89.4 - Chronic pain syndrome Status: Chronic Subjective Date/time seen: 01/26/22 13:23 Interval history: Pt admitted with pain on inspiration, interval history pt admitted to the hospital and was diagnosed with a pulmonary embolism comment attributed to recent travel,and she is now on apixaban. She has been doing okay since that time and states 100% compliance with her medications. Over the last couple of days she has had pleuritic pain in the left chest, CT of the chest with contrast from admission showed no evidence of pneumonia or pulmonary edema though did note a moderate sized pericardial effusion which was not present several weeks ago. She is being admitted in this setting for further workup in Cardiology consultation.? Cardiology feels her sob is not from her pericardial effusion which is mild and stable, possibly from COPD exacerbation and mild viral infection. COVID and flu are both negative on admission. pt currently needing 8 liters of oxygen 01/25/2022: She feels a bit better than yesterday. She used her BiPAP machine at night. She did not like it she states. She still on 8-9 L oxygen via nasal cannula. She states her lungs are open better. Reviewed x-ray findings with the patient she sees Dr. Campoverde 01/26/2022: Continues to feel better. Oxygen requirement has lowered down to 4 yesterday But had to go up up again.. Review of Systems Review of Systems: All systems reviewed & are unremarkable except as noted in HPI and below Exam Narrative: General: Alert and oriented x3 not in acute distress CV: Regular rate and rhythm, S1, S2 Lungs: No wheezing, decreased breath sounds bilaterally Abdomen: Soft, nontender, nondistended Extremities: Normal to inspection bilateral AKA Skin: No rashes noted, no lesions or wounds seen Psych: Euthymic, normal affect Objective Data Vital Signs Vital Signs: Vital Signs - 24 hr 01/25/22 14:00 01/25/22 14:00 01/25/22 15:50 Temperature 97.9 F Pulse Rate 73 70 Respiratory Rate 18 Blood Pressure 101/58 L Pulse Oximetry 90
[2022-01-26] MEDS: SENNA/DOCUSATE SODIUM TABLET 1 TAB PO (21:30)
[2022-01-26] MEDS: TEMAZEPAM (*CRX) 15 MG CAPSULE PO (21:31)
[2022-01-27] VITALS (22 sets, daily range): BP systolic 106–128; BP diastolic 46–79; PULSE 54–86; RESP 14–36; TEMP 36.2–36.6; O2SAT 91–95
[2022-01-27] MEDS: IPRATROPIUM BR 0.02% INH SOLN 0.5 MG/2.5 ML VIAL INHALATION ×6 (00:32→22:00)
[2022-01-27] MEDS: ALBUTEROL SULFATE NEB 2.5 MG/3 ML INH INHALATION ×6 (00:32→22:00)
[2022-01-27 05:29] LABS: Basophils Percent Auto 0.1 % (0.2-1.2); Eosinophils Percent Auto 0.1 % (0-4.4); Hematocrit 42.1 % (37.0-47.0); Hemoglobin 13.9 g/dL (12.0-15.0); Immature Granulocyte Absolute 0.12 K/mm3 (0.00-0.031); Immature Granulocyte Percent A 0.7 % (0-0.5); Lymphocytes Absolute Auto 1.12 K/mm3 (0.9-3.2); Lymphocytes Percent Auto 6.1 % (18.3-44.2); Mean Corpuscular Hemoglobin 33.4 pg (26-34); Mean Corpuscular Volume 101.2 fl (80-100); Monocytes Absolute Auto 1.4 K/mm3 (0.1-0.6); Monocytes Percent Auto 7.6 % (2.6-8.5); Neutrophils Absolute Auto 15.7 K/mm3 (1.3-6.7); Neutrophils Percent Auto 85.4 % (45.5-73.1); Platelet Count Result 444 k/mm3 (150-375); Red Blood Count 4.16 M/mm3 (4.2-5.4); Red Cell Distribution Width 13.2 % (11.5-14.5); White Blood Count 18.4 K/mm3 (4.5-10.0)
[2022-01-27 05:31] LABS: Alanine Aminotransferase 20 U/L (6-35); Albumin Level 3.3 g/dL (3.5-5.1); Alkaline Phosphatase 83 U/L (38-126); Anion Gap 6 mmol/L (8-16); Aspartate Amino Transferase 26 U/L (14-36); Bilirubin,Total 0.5 mg/dL (0.2-1.3); Blood Urea Nitrogen 19 mg/dL (7-17); Calcium 8.2 mg/dL (8.4-10.2); Carbon Dioxide 37 mmol/L (22-30); Chloride 92 mmol/L (98-107); Estimated CRCL calculation 73 ml/min; Estimated Glomerular Filt Rate > 60; Glucose 130 mg/dL (65-110); Magnesium 2.1 mg/dL (1.6-2.3); Potassium 3.7 mmol/L (3.4-5.0); Sodium 135 mmol/L (137-145)
[2022-01-27] MEDS: UMECLIDINIUM/VILANTEROL 62.5-25 MCG ELLIPTA 1 PUFF INHALATION (07:55)
[2022-01-27] MEDS: predniSONE 20 MG TABLET 40 MG PO (10:34)
[2022-01-27] MEDS: APIXABAN 5 MG TABLET PO ×2 (10:35→21:07)
[2022-01-27] MEDS: FUROSEMIDE INJ 40 MG/4 ML VIAL IV PUSH (10:35)
[2022-01-27] MEDS: GABAPENTIN 400 MG CAPSULE 800 MG PO ×2 (10:35→21:07)
[2022-01-27] MEDS: ATORVASTATIN 20 MG TABLET PO (10:36)
[2022-01-27] MEDS: METOPROLOL TARTRATE 12.5 MG TABLET PO ×2 (10:36→21:07)
--- NOTE | 2022-01-27 11:28 | PM.IMPN ---
Progress Note: A&P Assessment and Plan (1) Pericardial effusion: Code(s): I31.39 - Other pericardial effusion (noninflammatory) Status: Acute Assessment and Plan: Continue diuresis with oral lasix. Further management per Cardiology. sp echo 01/23/2022: EF 60-65% grade 1 diastolic dysfunction. Flattening of the septum in diastole and systole consistent with right ventricular volume and pressure overload moderate tricuspid valve regurgitation moderate pericardial effusion with no evidence of tamponade left pleural effusion Chest x-ray serial evaluation report reviewed showed worsening bilateral pleural effusion left more than right. Will start diuresis She also had pleuritic chest pain on left side possible pneumonia. Started on diuresis and had antibiotics along with current steroid treatment (2) Heart failure with preserved ejection fraction: Code(s): I50.30 - Unspecified diastolic (congestive) heart failure Status: Chronic Assessment and Plan: pt is on oral lasix. Cardiology on board. effusion is mild and stable no surgical intervention Heart failure with preserved ejection fraction Continue IV diuresis as ordered (3) Chronic respiratory failure with hypoxia: Code(s): J96.11 - Chronic respiratory failure with hypoxia Status: Chronic Assessment and Plan: From COPD. Start on DuoNeb. Started on IV steroid for possible COPD exacerbation Chronic respiratory failure on 3 L nasal cannula related to COPD Not wheezy: Will switch Solu-Medrol to oral steroid. Leukocytosis likely related to steroid treatment Leukocytosis stable Recheck chest x-ray two view to (4) Chronic obstructive pulmonary disease: Code(s): J44.9 - Chronic obstructive pulmonary disease, unspecified Status: Chronic Assessment and Plan: Continue home medications. Add DuoNebs q.i.d. and p.r.n.. (5) Chronic pain syndrome: Code(s): G89.4 - Chronic pain syndrome Status: Chronic Subjective Date/time seen: 01/27/22 11:28 Interval history: Pt admitted with pain on inspiration, interval history pt admitted to the hospital and was diagnosed with a pulmonary embolism comment attributed to recent travel,and she is now on apixaban. She has been doing okay since that time and states 100% compliance with her medications. Over the last couple of days she has had pleuritic pain in the left chest, CT of the chest with contrast from admission showed no evidence of pneumonia or pulmonary edema though did note a moderate sized pericardial effusion which was not present several weeks ago. She is being admitted in this setting for further workup in Cardiology consultation.? Cardiology feels her sob is not from her pericardial effusion which is mild and stable, possibly from COPD exacerbation and mild viral infection. COVID and flu are both negative on admission. pt currently needing 8 liters of oxygen 01/25/2022: She feels a bit better than yesterday. She used her BiPAP machine at night. She did not like it she states. She still on 8-9 L oxygen via nasal cannula. She states her lungs are open better. Reviewed x-ray findings with the patient she sees Dr. Campoverde 01/26/2022: Continues to feel better. Oxygen requirement has lowered down to 4 yesterday But had to go up up again.. 01/27/2022 no overnight events. Oxygen requirement stable. Denies any cough. No fever. Shortness of breath on exertion which is improving. No leg swelling. Review of Systems Review of Systems: All systems reviewed & are unremarkable except as noted in HPI and below Exam Narrative: General: Alert and oriented x3 not in acute distress CV: Regular rate and rhythm, S1, S2 Lungs: No wheezing, decreased breath sounds bilaterally Abdomen: Soft, nontender, nondistended Extremities: Normal to inspection bilateral AKA Skin: No rashes noted, no lesions or wounds seen Psych: Euthymic, normal affect Objecti
--- NOTE | 2022-01-27 20:40 | PC.NURSE ---
20:40 Patient arrived on 3 Med-Surg unit.
[2022-01-27] MEDS: SENNA/DOCUSATE SODIUM TABLET 1 TAB PO (21:07)
[2022-01-27] MEDS: TEMAZEPAM (*CRX) 15 MG CAPSULE PO (21:07)
--- NOTE | 2022-01-27 22:07 | PC.NURSE ---
Patient transferred [facility] at 2014. Reported to NATALIA Arauz
[2022-01-28] VITALS (15 sets, daily range): BP systolic 109–123; BP diastolic 50–63; PULSE 67–80; RESP 12–18; TEMP 35.8–36.5; O2SAT 90–95
[2022-01-28] MEDS: ALBUTEROL SULFATE NEB 2.5 MG/3 ML INH INHALATION ×5 (00:20→21:07)
[2022-01-28] MEDS: IPRATROPIUM BR 0.02% INH SOLN 0.5 MG/2.5 ML VIAL INHALATION ×5 (00:20→21:07)
[2022-01-28 06:45] LABS: Basophils Percent Auto 0.1 % (0.2-1.2); Hematocrit 42.6 % (37.0-47.0); Hemoglobin 13.9 g/dL (12.0-15.0); Immature Granulocyte Absolute 0.06 K/mm3 (0.00-0.031); Immature Granulocyte Percent A 0.4 % (0-0.5); Lymphocytes Absolute Auto 1.78 K/mm3 (0.9-3.2); Lymphocytes Percent Auto 13.1 % (18.3-44.2); Mean Corpuscular HGB Conc 32.6 g/dl (32-36); Mean Corpuscular Hemoglobin 32.9 pg (26-34); Mean Corpuscular Volume 100.7 fl (80-100); Mean Platelet Volume 9.6 fl (7.4-10.4); Monocytes Absolute Auto 1.3 K/mm3 (0.1-0.6); Monocytes Percent Auto 9.7 % (2.6-8.5); Neutrophils Absolute Auto 10.4 K/mm3 (1.3-6.7); Neutrophils Percent Auto 76.7 % (45.5-73.1); Platelet Count Result 439 k/mm3 (150-375); Red Blood Count 4.23 M/mm3 (4.2-5.4); Red Cell Distribution Width 13.3 % (11.5-14.5); White Blood Count 13.5 K/mm3 (4.5-10.0)
[2022-01-28 06:56] LABS: Alanine Aminotransferase 18 U/L (6-35); Albumin Level 3.3 g/dL (3.5-5.1); Alkaline Phosphatase 82 U/L (38-126); Anion Gap 8 mmol/L (8-16); Aspartate Amino Transferase 21 U/L (14-36); Bilirubin,Total 0.5 mg/dL (0.2-1.3); Blood Urea Nitrogen 20 mg/dL (7-17); Calcium 8.2 mg/dL (8.4-10.2); Carbon Dioxide 37 mmol/L (22-30); Chloride 93 mmol/L (98-107); Estimated CRCL calculation 76 ml/min; Estimated Glomerular Filt Rate > 60; Glucose 97 mg/dL (65-110); Magnesium 2.4 mg/dL (1.6-2.3); Potassium 3.9 mmol/L (3.4-5.0); Sodium 138 mmol/L (137-145)
[2022-01-28] MEDS: GABAPENTIN 400 MG CAPSULE 800 MG PO ×2 (08:14→20:22)
[2022-01-28] MEDS: FUROSEMIDE INJ 40 MG/4 ML VIAL IV PUSH (08:14)
[2022-01-28] MEDS: ATORVASTATIN 20 MG TABLET PO (08:15)
[2022-01-28] MEDS: predniSONE 20 MG TABLET 40 MG PO (08:15)
[2022-01-28] MEDS: METOPROLOL TARTRATE 12.5 MG TABLET PO ×2 (08:15→20:22)
[2022-01-28] MEDS: APIXABAN 5 MG TABLET PO ×2 (08:15→20:22)
--- NOTE | 2022-01-28 11:16 | PCRCNOTE ---
Window of time for administration has passed. See next scheduled administration.
--- NOTE | 2022-01-28 16:22 | PM.IMPN ---
Progress Note: A&P Assessment and Plan (1) Pericardial effusion: Code(s): I31.39 - Other pericardial effusion (noninflammatory) Status: Acute Assessment and Plan: Continue diuresis with oral lasix. Further management per Cardiology. sp echo 01/23/2022: EF 60-65% grade 1 diastolic dysfunction. Flattening of the septum in diastole and systole consistent with right ventricular volume and pressure overload moderate tricuspid valve regurgitation moderate pericardial effusion with no evidence of tamponade left pleural effusion Chest x-ray serial evaluation report reviewed showed worsening bilateral pleural effusion left more than right. Will start diuresis She also had pleuritic chest pain on left side possible pneumonia. Started on diuresis and had antibiotics along with current steroid treatment (2) Heart failure with preserved ejection fraction: Code(s): I50.30 - Unspecified diastolic (congestive) heart failure Status: Chronic Assessment and Plan: pt is on oral lasix. Cardiology on board. effusion is mild and stable no surgical intervention Heart failure with preserved ejection fraction Continue IV diuresis as ordered (3) Chronic respiratory failure with hypoxia: Code(s): J96.11 - Chronic respiratory failure with hypoxia Status: Chronic Assessment and Plan: From COPD. Start on DuoNeb. Started on IV steroid for possible COPD exacerbation Chronic respiratory failure on 3 L nasal cannula related to COPD Not wheezy: Will switch Solu-Medrol to oral steroid. Leukocytosis likely related to steroid treatment Leukocytosis stable Recheck chest x-ray two view to (4) Chronic obstructive pulmonary disease: Code(s): J44.9 - Chronic obstructive pulmonary disease, unspecified Status: Chronic Assessment and Plan: Continue home medications. Add DuoNebs q.i.d. and p.r.n.. (5) Chronic pain syndrome: Code(s): G89.4 - Chronic pain syndrome Status: Chronic Plan will do home oxygen evaluation. Oxygen requirement has slowly improved. Chest x-ray personally reviewed seems improving but listed with congestive changes 01/28/2022 will continue diuresis and current treatment. The pleural effusion does not seem to be worsening with rather improving Subjective Date/time seen: 01/28/22 16:22 Interval history: Pt admitted with pain on inspiration, interval history pt admitted to the hospital and was diagnosed with a pulmonary embolism comment attributed to recent travel,and she is now on apixaban. She has been doing okay since that time and states 100% compliance with her medications. Over the last couple of days she has had pleuritic pain in the left chest, CT of the chest with contrast from admission showed no evidence of pneumonia or pulmonary edema though did note a moderate sized pericardial effusion which was not present several weeks ago. She is being admitted in this setting for further workup in Cardiology consultation.? Cardiology feels her sob is not from her pericardial effusion which is mild and stable, possibly from COPD exacerbation and mild viral infection. COVID and flu are both negative on admission. pt currently needing 8 liters of oxygen 01/25/2022: She feels a bit better than yesterday. She used her BiPAP machine at night. She did not like it she states. She still on 8-9 L oxygen via nasal cannula. She states her lungs are open better. Reviewed x-ray findings with the patient she sees Dr. Campoverde 01/26/2022: Continues to feel better. Oxygen requirement has lowered down to 4 yesterday But had to go up up again.. 01/27/2022 no overnight events. Oxygen requirement stable. Denies any cough. No fever. Shortness of breath on exertion which is improving. No leg swelling. 01/28/2022 no overnight events. New complaint. Breathing is getting better. She did not have any chest pain anymore which was pleuritic Review of Systems Review of Sy
[2022-01-28] MEDS: SENNA/DOCUSATE SODIUM TABLET 1 TAB PO (20:22)
[2022-01-28] MEDS: TEMAZEPAM (*CRX) 15 MG CAPSULE PO (20:22)
[2022-01-29] VITALS (10 sets, daily range): BP systolic 100; BP diastolic 55; PULSE 64–89; RESP 16–18; TEMP 36.5; O2SAT 86–95
--- NOTE | 2022-01-29 01:23 | PC.NURSE ---
Daylight Savings Time For Daylight Savings Time Ending in the Fall - Clocks are moved back. For Daylight Savings Time Beginning in the Spring - Clocks are moved ahead. For [facility], the time of change occurs at 0200 hrs. Time is taken from the line server. This entry on the patient's chart recognizes the change in time reflected during documentation. Example: 2 entries for vital signs may be charted for 0200 hrs.
[2022-01-29 07:45] LABS: Basophils Percent Auto 0.1 % (0.2-1.2); Eosinophils Absolute Auto 0.1 K/mm3 (0-0.3); Eosinophils Percent Auto 0.5 % (0-4.4); Hematocrit 44.8 % (37.0-47.0); Hemoglobin 14.7 g/dL (12.0-15.0); Immature Granulocyte Absolute 0.06 K/mm3 (0.00-0.031); Immature Granulocyte Percent A 0.4 % (0-0.5); Lymphocytes Absolute Auto 2.69 K/mm3 (0.9-3.2); Lymphocytes Percent Auto 19.7 % (18.3-44.2); Mean Corpuscular HGB Conc 32.8 g/dl (32-36); Mean Corpuscular Volume 100.7 fl (80-100); Mean Platelet Volume 9.7 fl (7.4-10.4); Monocytes Absolute Auto 1.1 K/mm3 (0.1-0.6); Monocytes Percent Auto 8.3 % (2.6-8.5); Neutrophils Absolute Auto 9.7 K/mm3 (1.3-6.7); Platelet Count Result 484 k/mm3 (150-375); Red Blood Count 4.45 M/mm3 (4.2-5.4); Red Cell Distribution Width 13.1 % (11.5-14.5); White Blood Count 13.7 K/mm3 (4.5-10.0)
[2022-01-29 08:04] LABS: Alanine Aminotransferase 23 U/L (6-35); Albumin Level 3.3 g/dL (3.5-5.1); Alkaline Phosphatase 78 U/L (38-126); Anion Gap 11 mmol/L (8-16); Aspartate Amino Transferase 26 U/L (14-36); Bilirubin,Total 0.5 mg/dL (0.2-1.3); Blood Urea Nitrogen 22 mg/dL (7-17); Calcium 8.2 mg/dL (8.4-10.2); Carbon Dioxide 38 mmol/L (22-30); Chloride 90 mmol/L (98-107); Estimated CRCL calculation 65 ml/min; Estimated Glomerular Filt Rate > 60; Glucose 82 mg/dL (65-110); Magnesium 2.4 mg/dL (1.6-2.3); Potassium 3.6 mmol/L (3.4-5.0); Sodium 139 mmol/L (137-145)
[2022-01-29] MEDS: APIXABAN 5 MG TABLET PO (08:08)
[2022-01-29] MEDS: predniSONE 20 MG TABLET 40 MG PO (08:08)
[2022-01-29] MEDS: ATORVASTATIN 20 MG TABLET PO (08:08)
[2022-01-29] MEDS: GABAPENTIN 400 MG CAPSULE 800 MG PO (08:08)
[2022-01-29] MEDS: METOPROLOL TARTRATE 12.5 MG TABLET PO (08:08)
[2022-01-29] MEDS: FUROSEMIDE INJ 40 MG/4 ML VIAL IV PUSH (08:09)
[2022-01-29] MEDS: ALBUTEROL SULFATE NEB 2.5 MG/3 ML INH INHALATION (08:43)
[2022-01-29] MEDS: IPRATROPIUM BR 0.02% INH SOLN 0.5 MG/2.5 ML VIAL INHALATION (08:43)
[2022-01-29] MEDS: UMECLIDINIUM/VILANTEROL 62.5-25 MCG ELLIPTA 1 PUFF INHALATION (08:43)
--- NOTE | 2022-01-29 13:20 | PM.DS ---
DS: Admitting Diagnosis Discharge Date 01/29/2022 Admitting Diagnosis shortness of breath DS: Discharge Diagnosis Discharge Diagnosis (1) Pericardial effusion: Code(s): I31.39 - Other pericardial effusion (noninflammatory) Status: Acute (2) Heart failure with preserved ejection fraction: Code(s): I50.30 - Unspecified diastolic (congestive) heart failure Status: Chronic (3) Chronic respiratory failure with hypoxia: Code(s): J96.11 - Chronic respiratory failure with hypoxia Status: Chronic (4) Chronic obstructive pulmonary disease: Code(s): J44.9 - Chronic obstructive pulmonary disease, unspecified Status: Chronic (5) Chronic pain syndrome: Code(s): G89.4 - Chronic pain syndrome Status: Chronic DS: Summary Hospital Course Reason for hospitalization: Pt admitted with pain on inspiration, interval history pt admitted to the hospital and was diagnosed with a pulmonary embolism comment attributed to recent travel,and she is now on apixaban. She has been doing okay since that time and states 100% compliance with her medications. Over the last couple of days she has had pleuritic pain in the left chest,??CT of the chest with contrast from admission showed no evidence of pneumonia or pulmonary edema though did note a moderate sized pericardial effusion which was not present several weeks ago. She is being admitted in this setting for further workup in Cardiology consultation.? Hospital Course: # worsening Pericardial effusion: patient presented with left-sided pleuritic chest pain with worsening hypoxia. CT chest on admission with no evidence of pneumonia or pulmonary edema however noted moderate-sized pericardial effusion which is worsened compared to previous admission a month ago. Cardiology was consulted. She underwent echocardiogram on 01/23/2022 which showed: EF 60-65% grade 1 diastolic dysfunction.? Flattening of the septum in diastole and systole consistent with right ventricular volume and pressure overload moderate tricuspid valve regurgitation moderate pericardial effusion with no evidence of tamponade left pleural effusion. Chest x-ray serial evaluation report reviewed showed worsening bilateral pleural effusion left more than right.? Her BNP was also elevated and was started on IV diuresis. Due to left-sided pleuritic chest pain and ruled out a PE possible pneumonia and pneumonia effusion was also considered and was started on antibiotic. For shortness of breath it was suggested she might have underlying COPD exacerbation for which she was started on steroid. She was initially requiring to 12 L oxygen via nasal cannula. She was recently discharged on oxygen via 3 L nasal cannula suggestive of worsening hypoxia. During the hospital stay she was tapered down and continue to improve with diuresis steroid and treatment. # Heart failure with preserved ejection fraction: pt was on oral lasix. Cardiology on board. effusion is mild and stable no surgical intervention Heart failure with preserved ejection fraction. BNP was elevated and along with bilateral pleural effusion which was worsening suggestive of heart failure related and hence IV diuresis was started. Will switch Lasix to 40 mg daily at the time of discharge along with potassium supplement # acute on chronic hypoxic respiratory failure: From COPD.? Start on DuoNeb.? Started on IV steroid for possible COPD exacerbation Chronic respiratory failure on 3 L nasal cannula related to COPD And recent PE. Her steroid was switched to oral and subsequent taper at the time of discharge delete that # COPD: Continue home medications.? Add DuoNebs q.i.d. and p.r.n.. # chronic pain syndrome #DVT prophylaxis: On apixaban # code status full code Time Spent with Patient Time attestation: Total time spent providing and/or coordinating discharge services: 45 minutes Exam Narrative: General: Alert and orien
== END 2022-01-29 14:05 | disposition home or self-care (01) | DRG 314 ==
LOC: ANHED 19:17 → ANH2MED 19:53 → ANHIMU 01-24 03:21 → ANH3MEDSUR 01-27 21:22
PROVIDERS: Physician Assistant; Student in an Organized Health Care Education/Training Program; Admitting Provider Family Medicine; Emergency Provider Emergency Medicine; PCP Family Medicine; Visit Provider Internal Medicine
DX: I31.39 Other pericardial effusion (noninflammatory) (principal); J96.21 Acute and chronic respiratory failure with hypoxia; I50.32 Chronic diastolic (congestive) heart failure; Z99.81 Dependence on supplemental oxygen; J43.9 Emphysema, unspecified; I25.10 Atherosclerotic heart disease of native coronary artery without angina pectoris; I48.0 Paroxysmal atrial fibrillation; F41.9 Anxiety disorder, unspecified; G89.4 Chronic pain syndrome; Z20.822 Contact with and (suspected) exposure to COVID-19; Z79.01 Long term (current) use of anticoagulants; Z79.899 Other long term (current) drug therapy; Z86.711 Personal history of pulmonary embolism; Z87.891 Personal history of nicotine dependence; Z89.512 Acquired absence of left leg below knee; Z89.511 Acquired absence of right leg below knee
CPT/HCPCS: 36415; 36600; 70450; 71045; 71046; 71260; 80048; 80053; 82805; 83735; 83880; 84443; 85025; 85027; 85610; 85652; 85730; 86038; 86140; 87502; 93005; 93306; 94002; 94003; 94618; 94640; 94667; 99213; 99285; A9270; G0378; G0463; J0456; J0696; J1940; J2060; J2920; J7512; Q9967; U0003; U0005

== ENCOUNTER 2022-02-08 12:36 | Outpatient (CLI) | payer MEDICARE, SELFPAY ==
--- NOTE | ~2022-02-08 | XR_ITS ---
XR chest 2V DATE: 02/08/2022 14:08 INDICATION: Shortness of breath. Heart failure. TECHNIQUE: AP and lateral views COMPARISON: 01/28/2022 2 view chest 01/21/2022 CT chest with IV contrast material FINDINGS: Borderline heart size. Pericardial effusion demonstrated on 01/21/2022 CT chest. Aortic arch calcification. No hilar or mediastinal mass lesion or lymphadenopathy is evident based upon comparison: 01/21/2022 C T chest examination. Minimal pleural effusions. Minimal atelectasis at the lung bases. There is considerable interval impr ovement of bilateral pulmonary infiltrates particularly lower lung zones since 01/28/2022. Bilateral hyperinflation suggests COPD. IMPRESSION: Improvement of bilateral lower lung infiltrates and/or atelectasis since 01/28/2022, with minimal residual atelectasis at the bases and minimal residual pleural effusions Mild cardiomegaly and/or pericardial effusion Aortic atherosclerosis COPD Reviewed, dictated and finalized at location A. ANT DIRECTOR IMPRESSION: Improvement of bilateral lower lung infiltrates and/or atelectasis since 01/28/2022, with minimal residual atelectasis at the bases and minimal res idual pleural effusions Mild cardiomegaly and/or pericardial effusion Aortic atherosclerosis COPD
[2022-02-08 12:50] VITALS: PULSE 55; O2SAT 86
[2022-02-08 12:55] VITALS: PULSE 56; O2SAT 87
[2022-02-08 13:00] VITALS: PULSE 57; O2SAT 88
[2022-02-08 13:05] VITALS: PULSE 56; O2SAT 91
[2022-02-08 13:10] VITALS: PULSE 66; O2SAT 92
[2022-02-08 13:15] VITALS: PULSE 59; O2SAT 91
[2022-02-08 13:28] LABS: Basophils Absolute Auto 0.1 K/mm3 (0.0-0.1); Basophils Percent Auto 0.6 % (0.2-1.2); Eosinophils Absolute Auto 0.2 K/mm3 (0-0.3); Eosinophils Percent Auto 1.3 % (0-4.4); Hematocrit 46.5 % (37.0-47.0); Immature Granulocyte Absolute 0.05 K/mm3 (0.00-0.031); Immature Granulocyte Percent A 0.4 % (0-0.5); Lymphocytes Percent Auto 35.1 % (18.3-44.2); Mean Corpuscular HGB Conc 32.3 g/dl (32-36); Mean Corpuscular Hemoglobin 33.6 pg (26-34); Mean Platelet Volume 9.6 fl (7.4-10.4); Monocytes Absolute Auto 0.9 K/mm3 (0.1-0.6); Monocytes Percent Auto 7.1 % (2.6-8.5); Neutrophils Absolute Auto 6.9 K/mm3 (1.3-6.7); Neutrophils Percent Auto 55.5 % (45.5-73.1); Platelet Count Result 522 k/mm3 (150-375); Red Blood Count 4.47 M/mm3 (4.2-5.4); Red Cell Distribution Width 13.5 % (11.5-14.5); White Blood Count 12.5 K/mm3 (4.5-10.0)
--- NOTE | 2022-02-08 13:31 | HOMEO2EVAL ---
Evaluation was performed at [facility] Home Oxygen Evaluation RC: Home Oxygen (O2) Evaluation Start: 02/08/22 13:26 Freq: Status: Active Protocol: RPE Activity Type Activity Date Activity User E-sign Co-sign Detail Recorded Client Recorded Date Recorded By Document 02/08/22 12:50 [email or web address] 02/08/22 13:30 PKH Document 02/08/22 12:55 [email or web address] 02/08/22 13:30 PKH Document 02/08/22 13:00 [email or web address] [email or web address] 02/08/22 13:30 PKH Document 02/08/22 13:05 [email or web address] [email or web address] 02/08/22 13:30 PKH Document 02/08/22 13:10 [email or web address] 02/08/22 13:30 PKH Document 02/08/22 13:15 [email or web address] [email or web address] 02/08/22 13:30 PKH 02/08/22 02/08/22 02/08/22 12:50 12:55 13:00 Home O2 Evaluation [Oxygen] -Test Phase Resting Resting Resting -Oxygen Delivery Room Air Nasal Cannula Nasal Cannula -Oxygen Flow Rate (L/min) 1 2 [Pulse Oximetry] -Pulse Oximetry (90-100 %) 86 L 87 L 88 L [Pulse Rate] -Pulse Rate (60-100 beats/min) 55 L 56 L 57 L [Comments] -Home Oxygen Evaluation Comments 02/08/22 02/08/22 02/08/22 13:05 13:10 13:15 Home O2 Evaluation [Oxygen] -Test Phase Resting Exercise Resting -Oxygen Delivery Nasal Cannula Nasal Cannula Nasal Cannula -Oxygen Flow Rate (L/min) 3 3 3 [Pulse Oximetry] -Pulse Oximetry (90-100 %) 91 92 91 [Pulse Rate] -Pulse Rate (60-100 beats/min) 56 L 66 59 L [Comments] -Home Oxygen Evaluation Comments PT TRANSFERED FROM WHEELCHAIR TO PFT CHAIR ON HER OWN
[2022-02-08 13:43] LABS: Alanine Aminotransferase 30 U/L (6-35); Albumin Level 3.9 g/dL (3.5-5.1); Alkaline Phosphatase 76 U/L (38-126); Anion Gap 6 mmol/L (8-16); Aspartate Amino Transferase 28 U/L (14-36); Bilirubin,Total 0.9 mg/dL (0.2-1.3); Blood Urea Nitrogen 31 mg/dL (7-17); Calcium 8.9 mg/dL (8.4-10.2); Carbon Dioxide 39 mmol/L (22-30); Chloride 95 mmol/L (98-107); Estimated Glomerular Filt Rate > 60; Glucose 99 mg/dL (65-110); Sodium 140 mmol/L (137-145)
--- NOTE | 2022-02-08 16:16 | WPDPFTINT ---
PFT Procedure Performed PFT Procedure Performed Spirometry with Pre/Post Bronchodilator Plethysmography (Lung Vol) Diffusing Cap (DLCO) Flow Vol Loop PFT Interpretation This is a pulmonary function test with pre and post-bronchodilator spirometry, plethysmography and diffusing capacity. The test was performed and results interpreted in accordance with the 2019 and 2005 ATS/ERS Task Force guidelines respectively using the Global Lung Function Initiative-2012 reference equations. Patient demonstrated good effort and cooperation. Reproducibility criteria were met. The quality of the pre bronchodilator spirometry maneuver was Grade A and post bronchodilator spirometry maneuver was Grade A. Findings: Spirometry: There is decreased maximal expiratory airflow at all lung volumes with concave expiratory flow tracing. The contour the inspiratory flow tracing is normal. The pre bronchodilator FVC is 2.08 L, 73% predicted. The pre bronchodilator FEV1 is 0.98 L, 44% predicted. The pre bronchodilator FEV1: FVC ratio was 47%. The post bronchodilator FVC is 2.27 L, representing a 9% increase. The post bronchodilator FEV1 is 1.09 L, representing an 11% increase. The post bronchodilator FEV1: FVC ratio is 48%. Plethysmography: Total lung capacity is 5.77 L, 122% predicted. The functional residual capacity is 4.40 L, 165% predicted. The residual volume is 3.69 L, 190% predicted. Diffusing capacity: The diffusing capacity unadjusted for hemoglobin and carboxyhemoglobin is 5.7, 28% predicted. The diffusing capacity adjusted for alveolar volume is 2.26, 50% predicted. Impression: There is a severe obstructive abnormality without significant improvement after inhaling a single dose of albuterol. The increase in residual volume is consistent with air trapping from an obstructive abnormality. Hyperinflation is present as demonstrated by the increase in functional residual capacity and is consistent with an obstructive abnormality. The diffusing capacity unadjusted for hemoglobin and carboxyhemoglobin is severely decreased and remains moderately decreased when adjusted for alveolar volume. There are no prior studies for comparison
== END 2022-02-08 12:37 | disposition home or self-care (01) ==
PROVIDERS: PCP Family Medicine; Referring Provider Internal Medicine; Visit Provider Internal Medicine Pulmonary Disease
DX: I50.30 Unspecified diastolic (congestive) heart failure (principal); R06.00 Dyspnea, unspecified; J44.9 Chronic obstructive pulmonary disease, unspecified; R94.2 Abnormal results of pulmonary function studies; R91.8 Other nonspecific abnormal finding of lung field; I70.0 Atherosclerosis of aorta
CPT/HCPCS: 36415; 71046; 80053; 85025; 94060; 94726; 94729

== ENCOUNTER 2022-12-13 11:13 | Outpatient (CLI) | payer MEDICARE, SELFPAY ==
--- NOTE | ~2022-12-13 | MMUS_ITS ---
EXAMINATION: MM diagnostic jim LT w alicia, US breast LT complete HISTORY: Follow-up left breast asymmetries TECHNIQUE: Additional 3-D tomosynthesis images of the left breast were performed and synthetic 2-D im ages were generated. CAD analysis was submitted and interpreted. High resolution complete left breast ultrasound was performed. COMPARISON: Comparison to multiple prior studies sequentially, with oldest reviewed study dated 07/05. BREAST PARENCHYMAL COMPOSITION: The breasts are heterogeneously dense, which may obscure small masses FINDINGS: MAMMOGRAPHIC FINDINGS: There are persistent asymmetries in the lateral aspect of the left breast, although no discrete mass identified. There are no suspicious calcifications or architectural distortion. ULTRASOUND: Complete US of all 4 quadrants of the left breast and retroareolar region was reviewed. At 11:00 ther e is an irregular shaped hypoechoic mass with posterior shadowing measuring 12 x 10 x 8 mm. No risk intern al vascularity. At 4:00 in the subareolar location there is an irregular shaped shadowing mass with a ngular margins measuring 1.5 x 0.9 x 0.8 cm. No internal vascularity. IMPRESSION: 1. Complex irregular shaped hypoechoic shadowing masses of the left breast at 11:00 and 4:00, both in the subareolar location. 2. Ultrasound-guided left breast biopsies recommended. BI-RADS category 4, suspicious findings. Reviewed, dictated and finalized at location A. IMPRESSION: 1. Complex irregular shaped hypoechoic shadowing masses of the left breast at 1 1:00 and 4:00, both in the subareolar location. 2. Ultrasound-guided left breast biopsies recommended. BI-RADS category 4, suspicious findings.
== END 2022-12-13 11:14 | disposition home or self-care (01) ==
LOC: ANHIMG 11:14
PROVIDERS: PCP Family Medicine; Visit Provider Family Medicine
DX: R92.8 Other abnormal and inconclusive findings on diagnostic imaging of breast (principal)
CPT/HCPCS: 76641; 77061; 77065; G0279

== ENCOUNTER 2022-12-21 09:24 | Outpatient (CLI) | payer MEDICARE, SELFPAY ==
--- NOTE | ~2022-12-21 | US_ITS ---
Consultation US DATE: 12/21/2022 10:20 INDICATION: Patient presented for ultrasound-guided biopsy of complex irregular shaped hypoechoic sha dowing masses in the left breast at 11:00 and 4:00 subareolar areas based upon 12/13/2022 left complet e breast ultrasound examination. TECHNIQUE: Real-time imaging was performed at 11:00 and 4:00 subareolar areas COMPARISON: 12/13/2022 left complete ultrasound 12/13/2022 month diagnostic mammogram FINDINGS: No suspicious mass or shadowing is detected in the subareolar area at 11:00 or 4:00 on the current examination. IMPRESSION: BI-RADS Category 3: Probably benign Recommendation: 6 month diagnostic left mammogram follow-up, with ultrasound if required Reviewed, dictated and finalized at Location [facility]. Reviewed, dictated and finalized at location A.
== END 2022-12-21 09:25 | disposition home or self-care (01) ==
PROVIDERS: PCP Family Medicine; Visit Provider Family Medicine
DX: R92.8 Other abnormal and inconclusive findings on diagnostic imaging of breast (principal)
CPT/HCPCS: 99199

== ENCOUNTER 2023-01-23 11:03 | Outpatient (CLI) | payer MEDICARE, SELFPAY ==
--- NOTE | ~2023-01-23 | CT_ITS ---
EXAMINATION: CT lung screening DATE: 01/23/2023 11:21 INDICATION: Personal history of nicotine dependence TECHNIQUE: Computed tomography (CT) of the chest was performed without intravenous contrast. The dose -length product was 52.47 mGy-cm. Automated exposure control and iterative reconstruction technique w ere employed. COMPARISON: CT dated 01/21/2022 FINDINGS: there is mediastinal lymphadenopathy. No significant pleural or pericardial effusion. Heart size is mildly enlarged. There is a 1.4 cm low-density mass of the right adrenal gland, most likely benign adenoma. Coarse rounded calcification in the left upper abdomen, likely benign. There is emphy sema. No endobronchial lesions. No pneumothorax. There is bilateral lower lobe atelectasis/scarring. No focal pneumonia. There is a 4 mm right lower lobe nodule, image 71, unchanged. IMPRESSION: 1. Lung-RADS category 2: Benign appearance or behavior. Continue annual screening with noncontrast lo w-dose chest CT in 12 months. Reviewed, dictated and finalized at location A. IMPRESSION: 1. Lung-RADS category 2: Benign appearance or behavior. Continue annual screeni ng with noncontrast low-dose chest CT in 12 months.
== END 2023-01-23 11:04 | disposition home or self-care (01) ==
PROVIDERS: PCP Family Medicine; Visit Provider Internal Medicine Pulmonary Disease
DX: Z12.2 Encounter for screening for malignant neoplasm of respiratory organs (principal); Z87.891 Personal history of nicotine dependence
CPT/HCPCS: 71271

== ENCOUNTER 2023-11-20 12:48 | Outpatient (CLI) | payer MEDICARE, SELFPAY ==
--- NOTE | ~2023-11-20 | MMUS_ITS ---
EXAMINATION: MM diagnostic jim BI w alicia, US breast LT complete HISTORY: Follow-up left breast masses TECHNIQUE: Additional 3-D tomosynthesis images of the breasts were performed and synthetic 2-D images were generated. CAD analysis was submitted and interpreted. High resolution complete left breast ult rasound was performed. COMPARISON: Comparison to multiple prior studies sequentially, with oldest reviewed study dated 11/15. BREAST PARENCHYMAL COMPOSITION: Dense: The breasts are heterogeneously dense, which may obscure small masses FINDINGS: MAMMOGRAPHIC FINDINGS: There are no suspicious masses, calcifications or architectural distortion in either breast to sugges t malignancy. ULTRASOUND: Complete US of all 4 quadrants of the breast/s and retroareolar region was reviewed. Normal heterogen eous echotexture within the left breast without focal solid or cystic mass. Mass identified on prior examination not appreciated on the current study. IMPRESSION: 1. No evidence for malignancy in either breast. Interval resolution of masses seen on prior examinati on. 2. Routine yearly screening mammogram and regular clinical breast examination are recommended. BI-RADS Category 1: Negative Reviewed, dictated and finalized at location B. IMPRESSION: 1. No evidence for malignancy in either breast. Interval resolution of masses s een on prior examination. 2. Routine yearly screening mammogram and regular clinical breast examination a re recommended. BI-RADS Category 1: Negative
== END 2023-11-20 12:49 | disposition home or self-care (01) ==
LOC: ANHIMG 12:49
PROVIDERS: PCP Family Medicine; Visit Provider Nurse Practitioner Family
DX: R92.8 Other abnormal and inconclusive findings on diagnostic imaging of breast (principal)
CPT/HCPCS: 76641; 77062; 77066; G0279

== ENCOUNTER 2023-12-07 10:12 | Outpatient (CLI) | payer MEDICARE, SELFPAY ==
[2023-12-07 10:30] VITALS: PULSE 69; O2SAT 85
[2023-12-07 10:35] VITALS: PULSE 68; O2SAT 86
[2023-12-07 10:40] VITALS: PULSE 66; O2SAT 87
[2023-12-07 10:45] VITALS: PULSE 65; O2SAT 88
[2023-12-07 10:50] VITALS: PULSE 62; O2SAT 90
--- NOTE | 2023-12-07 11:42 | HOMEO2EVAL ---
Evaluation was performed at [facility] Home Oxygen Evaluation RC: Home Oxygen (O2) Evaluation Start: 12/07/23 11:36 Freq: Status: Active Protocol: RPE Activity Type Activity Date Activity User E-sign Co-sign Detail Recorded Client Recorded Date Recorded By Document 12/07/23 10:30 [email or web address] [email or web address] 12/07/23 11:42 DJO Document 12/07/23 10:35 [email or web address] [email or web address] 12/07/23 11:42 DJO Document 12/07/23 10:40 [email or web address] [email or web address] 12/07/23 11:42 DJO Document 12/07/23 10:45 [email or web address] [email or web address] 12/07/23 11:42 DJO Document 12/07/23 10:50 [email or web address] [email or web address] 12/07/23 11:42 DJO 12/07/23 12/07/23 12/07/23 10:30 10:35 10:40 Home O2 Evaluation [Oxygen] -Test Phase Resting Resting Resting -Oxygen Delivery Room Air Nasal Cannula Nasal Cannula -Oxygen Flow Rate (L/min) 1 2 [Pulse Oximetry] -Pulse Oximetry (90-100 %) 85 L 86 L 87 L [Pulse Rate] -Pulse Rate (60-100 beats/min) 69 68 66 [Comments] -Home Oxygen Evaluation Comments [Charges] -Evaluation Charges O2 Evaluation by Pulmonary 12/07/23 12/07/23 10:45 10:50 Home O2 Evaluation [Oxygen] -Test Phase Resting Resting -Oxygen Delivery Nasal Cannula Nasal Cannula -Oxygen Flow Rate (L/min) 3 4 [Pulse Oximetry] -Pulse Oximetry (90-100 %) 88 L 90 [Pulse Rate] -Pulse Rate (60-100 beats/min) 65 62 [Comments] -Home Oxygen Evaluation Comments PT NON AMBULATORY, REQUIRES 4L AND 6L PULSE DOSE [Charges] -Evaluation Charges
--- NOTE | 2023-12-07 15:57 | WPDPFTINT ---
PFT Procedure Performed PFT Procedure Performed Spirometry with Pre/Post Bronchodilator Plethysmography (Lung Vol) Diffusing Cap (DLCO) Flow Vol Loop PFT Interpretation Lung volumes were measured using the body plethysmography method. The elevated total lung capacity suggests lung hyperinflation. Spirometry revealed diminished expiratory flow rates and a reduced FEV1 to FVC ratio of 43%, indicative of obstructive airway disease. Post-bronchodilator administration, there was a significant increase in forced vital capacity. Lung diffusion capacity was severely reduced at 26% of the predicted value. The reduced lung diffusion capacity, along with diminished alveolar volume and a decreased DLCO/VA ratio, indicates a loss of alveolar capillary structure, as seen in emphysema or interstitial lung disease. Compared to a previous study from January 2022, post-bronchodilator FVC and FEV1 remain essentially unchanged. Lung diffusion capacity is also unchanged. Impression: Severe obstructive airway disease with lung hyperinflation, and significant bronchodilator response on this testing; and severely reduced lung diffusion capacity.
== END 2023-12-07 10:13 | disposition home or self-care (01) ==
LOC: ANHPFT 10:13
PROVIDERS: PCP Family Medicine; Visit Provider Internal Medicine Pulmonary Disease
DX: J44.9 Chronic obstructive pulmonary disease, unspecified (principal)
CPT/HCPCS: 94060; 94618; 94726; 94729

== ENCOUNTER 2024-01-28 11:01 | Outpatient (CLI) | payer MEDICARE, SELFPAY ==
--- NOTE | ~2024-01-28 | CT_ITS ---
CT Scan of the Chest without Contrast: Clinical Indication: Lung cancer screening, nicotine dependence Technique: Contiguous sections were acquired throughout the chest without intravenous contrast. Dose reduction technique was used on this scan by utilizing automated exposure control and iterative recon struction technique. The dose-length product (DLP) was 61.13 mGy-cm. COMPARISON: 01/23/2023 Findings: There is no evidence of any significant mediastinal, hilar or axillary lymphadenopathy. The mediastin al soft tissues appear normal. There is no evidence of pleural or pericardial effusion. Mild to moderate emphysema present. There is left basilar scarring. Stable 5 mm right basilar pulmona ry nodule (axial image 71). Images through the upper abdomen reveal stable right adrenal adenoma. Impression: Lung RADS 2: Benign appearance. 12 month follow-up screening CT advised. Reviewed, dictated and finalized at location . R MECHANIC Impression: Lung RADS 2: Benign appearance. 12 month follow-up screening CT advised.
== END 2024-01-28 11:02 | disposition home or self-care (01) ==
PROVIDERS: PCP Family Medicine; Visit Provider Internal Medicine Pulmonary Disease
DX: Z12.2 Encounter for screening for malignant neoplasm of respiratory organs (principal); Z87.891 Personal history of nicotine dependence
CPT/HCPCS: 71271

== ENCOUNTER 2024-06-24 12:30 | Outpatient (CLI) | payer MEDICARE, SELFPAY ==
--- NOTE | ~2024-06-24 | US_ITS ---
EXAMINATION: US soft tissue head and neck DATE: 06/24/2024 12:47 INDICATION: Enlarging left neck mass. TECHNIQUE: Multiple grayscale and Doppler ultrasound images of the soft tissues at the region of conc camille at the left neck were obtained. COMPARISON: None FINDINGS: There are a few small hypoechoic lymph nodes in the subcutaneous fat at the region of concern, the la rgest measuring up to 3 mm maximal short axis diameter which remains well within normal limits. No ot her abnormal masses or fluid collections identified. IMPRESSION: 1. A few normal-sized lymph nodes in the subcutaneous fat at the region of concern. No abnormal dmitriy s or fluid collections identified. Reviewed, dictated and finalized at location A. IMPRESSION: 1. A few normal-sized lymph nodes in the subcutaneous fat at the region of conc camille. No abnormal masses or fluid collections identified.
== END 2024-06-24 12:31 | disposition home or self-care (01) ==
LOC: MICIMG 12:32
PROVIDERS: PCP Nurse Practitioner Family; Visit Provider Nurse Practitioner Family
DX: R22.1 Localized swelling, mass and lump, neck (principal)
CPT/HCPCS: 76536